=== PATIENT | male | born 1975 | race Caucasian/White ===

== ENCOUNTER → 2018-04-02 10:05 | Outpatient (CLI) | payer OTHER, SELFPAY ==
--- NOTE | 2018-04-02 10:05 | DT_ITS ---
This patient was seen during an EMR downtime March 30, 2018 - April 06, 2018. This patient may have a combination of paper and electronic documentation or all paper documentation. All documentation is viewable within the e-chart portion of [facility] for each patient visit.
[2018-04-05 04:12] LABS: Bacteria 0 SEEN /hpf (None Seen); Mucous, Urine 0 SEEN /hpf (<or=2+); White Blood Cells 0 SEEN /hpf (0-5)
[2018-04-07 03:06] LABS: AST(SGOT) 11 U/L (15-37); Alanine Aminotransfer ALT/SGPT 32 U/L (16-61); Albumin, Serum 3.5 g/dL (3.2-5.0); Alkaline Phosphatase 119 U/L (45-117); Anion Gap 5 (5-15); BUN 12 mg/dL (7-18); BUN/Creat Ratio 13.8 RATIO (10-20); Calcium,Total 8.5 mg/dL (8.5-10.1); Chloride 112 mmol/L (98-107); Creatinine, Serum 0.87 mg/dL (0.70-1.30); EST Glomerular Filtration Rate 102 mL/min (>60); Est Glom Filt Rate - Afr Amer 124 mL/min (>60); Globulin 3.5 g/dL (2.2-4.2); Glucose 98 mg/dL (74-106); Magnesium 2.2 mg/dL (1.6-2.6); Potassium 4.3 mmol/L (3.5-5.1); Sodium Level 145 mmol/L (136-145); T4 Free Direct 1.01 ng/dL (0.76-1.46); Thyroid Stim Hormone (TSH) 1.05 uIU/mL (0.358-3.74)
[2018-04-07 03:11] LABS: Color, Urine Yellow (Yellow); Glucose, Dipstick NEGATIVE (Normal); Ketone-Dipstick Negative (Negative); Specific Gravity, Urine 1.025 (1.002-1.030); Urine Bilirubin Dipstick Negative (Negative); Urine Clarity Clear (Clear)
[2018-04-07 03:12] LABS: Leukocyte Esterase-Dipstick Negative /ul (Negative); Nitrite-Dipstick Negative (Negative); Occult Blood-Urine 10 /ul (Negative); Protein-Dipstick Negative (Negative); Red Blood Cells-Urine 0-5 SEEN /hpf (0-5); Squamous Epithelial Cells - UA 0-5 SEEN /hpf (0-5); Urine Urobilinogen Normal (Normal)
[2018-04-07 03:26] LABS: Absolute Lymphocyte Count 3.44 X10^3/ul (0.83-4.51); Absolute Neutrophil Count 5.4 X10^3/uL (2.0-7.7); Basophil# 0.05 X10^3/uL; Basophil% 0.5 % (0-1); Eosinophil# 0.15 X10^3/uL; Eosinophils% 1.5 % (0-5); Hematocrit 47.3 % (40-54); Hemoglobin 15.5 g/dl (13.0-16.5); Lymphocyte # 3.44 X10^3/ul (4.0); Lymphocyte % 35.4 % (19-41); Mean Corp Hgb Conc 32.8 g/gl (32-36); Mean Corpuscular Hgb 31.4 pg (27.0-32.0); Mean Corpuscular Volume 95.7 fL (80-94); Mean Platelet Vol. 10.1 fl (6.2-12.0); Monocyte# 0.69 X10^3/uL; Monocyte% 7.1 % (0-10); Neutrophil # 5.36 X10^3/uL (2.7-7.7); Neutrophil % 55.3 % (47-70); POSITIVE COUNT NO; POSITIVE DIFFERENTIAL NO; POSITIVE MORPHOLOGY NO; Platelet Count 294 K/mm3 (150-450); RBC Distribution Width CV 13.9 % (11.6-14.6); RBC Distribution Width SD 48.9 fl (35.1-43.9); Red Blood Count 4.94 M/mm3 (4.6-6.2); White Blood Count 9.7 K/mm3 (4.4-11.0)
[2018-04-07 16:14] LABS: Vitamin B12 358 pg/mL (211-911); Vitamin D,25 Hydroxy 19.2 ng/mL (29.95-100.01)
== END ==
PROVIDERS: Family Provider Family Medicine; PCP Family Medicine; Visit Provider Family Medicine
DX: I10 Essential (primary) hypertension (principal); R53.83 Other fatigue; E01.0 Iodine-deficiency related diffuse (endemic) goiter
CPT/HCPCS: 36415; 80053; 81001; 82306; 82607; 83516; 83735; 84439; 84443; 85025; 86376

== ENCOUNTER → 2018-04-07 10:01 | Outpatient (CLI) | payer OTHER, SELFPAY ==
--- NOTE | 2018-04-07 10:06 | US_ITS ---
STUDY: THYROID ULTRASOUND REASON FOR EXAM: Male, 42 years old. Palpable thyromegaly TECHNIQUE: Ultrasound evaluation of the thyroid was performed with real-time and static frances-scale imaging. COMPARISON: None. FINDINGS: RIGHT LOBE: The right lobe of the thyroid gland measures 5.0 x 1.5 x 2.3 cm. There is a homogeneous echotexture. There are no demonstrated solid, cystic or complex lesions. LEFT LOBE: The left lobe of the thyroid gland measures 4.8 x 1.8 x 1.9 cm. There is a homogeneous echotexture. There is a solid 0.7 x 0.7 x 0.5 cm upper pole nodule. ISTHMUS: The isthmus measures 0.3 cm. The regional lymph nodes are normal. US/Thyroid IMPRESSION: Borderline enlarged homogeneous thyroid gland with a solid 7 mm nodule in the left lobe. Sonography cannot distinguish between benign and aggressive nodules. Recommend further evaluation with thyroid uptake study since no previous studies are available for comparison. If uptake is suspicious, biopsy would be recommended. At the minimum, a short-term, 6 month follow-up ultrasound is recommended to assess stability of the nodule Electronically Signed: Sanchez Palencia MD at 8:28 EDT , Service support ,
== END ==
PROVIDERS: Family Provider Family Medicine; PCP Family Medicine; Visit Provider Family Medicine
DX: E01.0 Iodine-deficiency related diffuse (endemic) goiter (principal)
CPT/HCPCS: 76536

== ENCOUNTER → 2022-05-03 | Outpatient (CLI) | payer OTHER, SELFPAY ==
--- NOTE | 2022-05-03 14:39 | CT_ITS ---
EXAM: CT CHEST WITH INTRAVENOUS CONTRAST CLINICAL INDICATION: LUNG NODULE TECHNIQUE: Helically acquired images were obtained of the chest with intravenous contrast. This CT exam was performed using one or more of the following dose reduction techniques: automated exposure control, adjustment of the mA and/or kV according to patient size, and/or use of iterative reconstruction technique. This report was created using [employer] report generation technology. CONTRAST: IV 100mL Isovue-300 COMPARISON: None. FINDINGS: LUNGS AND PLEURAL SPACES: There are small pleural-based nodules in the right middle lobe that abuts the minor fissure. No other nodules are identified. Fleischner Society Guidelines suggest no follow-up is necessary for patients with low or high risk of malignancy. No pneumothorax. HEART: Unremarkable. Heart size is normal. No pericardial effusion. No significant coronary artery calcifications. MEDIASTINUM: Unremarkable. No mediastinal or hilar adenopathy. Esophagus is unremarkable. No hiatal hernia. THYROID: Unremarkable. No thyroid lesions. BONES/JOINTS: Unremarkable. No suspicious lytic or blastic abnormality. VASCULATURE: Unremarkable. Thoracic aorta is non-dilated. No thoracic aortic dissection. No obvious central pulmonary embolism although this study was not performed with the pulmonary embolism protocol. CT/Chest WITH Contrast IMPRESSION: No acute findings in the chest. Electronically Signed: Vikram Kowalski MD at 17:58 EDT ,
[2022-05-03 15:10] LABS: CREATININE FINGERSTICK < 0.9 mg/dL (0.70-1.30); EGFR FINGERSTICK > 60.0000 mL/min (>60)
== END | disposition home or self-care (01) ==
LOC: CT 14:38
PROVIDERS: PCP Family Medicine; Referring Provider Family Medicine; Visit Provider Family Medicine
DX: R91.1 Solitary pulmonary nodule (principal)
CPT/HCPCS: 71260; Q9967

== ENCOUNTER → 2022-10-23 | Outpatient (CLI) | payer OTHER, SELFPAY ==
--- NOTE | 2022-10-23 16:00 | RAD_ITS ---
STUDY: X-RAY - LEFT TIBIA AND FIBULA REASON FOR EXAM: Male, 47 years old. CONTUSION TECHNIQUE: 4 view(s) of the tibia and fibula were obtained. COMPARISON: None. FINDINGS: Normal visualized tibia. Normal visualized fibula. The soft tissue structures are unremarkable. RAD/Tibia & Fibula 2 Views IMPRESSION: Normal x-ray examination of the tibia and fibula. Electronically Signed: Sanchez Palencia MD at 12:18 EST ,
== END | disposition home or self-care (01) ==
LOC: MTRAD 15:54
PROVIDERS: PCP Family Medicine; Referring Provider Family Medicine; Visit Provider Family Medicine
DX: S80.12XA Contusion of left lower leg, initial encounter (principal)
CPT/HCPCS: 73590

== ENCOUNTER → 2022-10-24 | Outpatient (CLI) | payer OTHER, SELFPAY ==
--- NOTE | 2022-10-24 08:45 | VDLE_ITS ---
Reason For Study: LEG EDEMA RIGHT LEFT CFV is compressible, spontaneous, phasic, GSV is normal. competent and demonstrates normal CFV is compressible, spontaneous, phasic, augmentation. competent, and demonstrates normal Procedure augmentation. This is a venous duplex using B-mode, color FV is compressible, spontaneous, phasic, flow and spectral Doppler. competent and demonstrates normal Exam performed in department. augmentation. The exam was diagnostic. POP V is compressible, spontaneous, phasic, A preliminary report was called and/or faxed competent and demonstrates normal to Dr. Coreas. augmentation. T/P Trunk is compressible. PTV is compressible. LT PerV is compressible. VL/Venous Duplex US, Unilateral Interpretation Summary Deep veins of the left lower extremity are patent and compressible segmentally. There is no evidence of left lower extremity deep vein thrombosis. The left great saphenous vein alissa ears patent and compressible segmentally. Ordering Physician: Crissy Coreas Referring Physician: Roger Burroughs Performed By: Serg Mckenna RVT
== END | disposition home or self-care (01) ==
LOC: CVS 08:44
PROVIDERS: PCP Family Medicine; Visit Provider Family Medicine
DX: R60.0 Localized edema (principal); S80.12XA Contusion of left lower leg, initial encounter
CPT/HCPCS: 93971

== ENCOUNTER → 2023-11-20 | Outpatient (CLI) | payer BC, SELFPAY ==
--- OUTSIDE RECORDS SUMMARY | 2023-11-20 10:21 | XMS RPT_ITS | CCD ---
Author Name Unknown Address [address] [place] [address] Organization [facility] Care Team Providers Care Water Tester Name Role Phone Unavailable Primary Care Provider UnavailHANK Kohli Attending Unavailable Roger Lomeli MD Primary Care Provider Roger Lomeli MD Primary Care Provider [phone] TYLER JACOBS Referring Unavailable ROGER LOMELI Primary Care Unavailable TYLER JACOBS Attending Unavailable ROGER LOMELI Primary Care Unavailable JENIFER LUI Referring Unavailable Roger Lomeli MD Primary Care Provider [phone] ROGER FAGAN Primary Care Unavailable MARY SIBLEY, ss - [phone] Attending Unava Roger Duke MD Primary Care Provider ROGER LOMELI Primary Care Unavailable TYLER JACOBS Attending Unavailable Allergies Allergy Classification Reported Allergen(s) Allergy Type Date of Onset Reaction(s) Facility (15 sources) Erythromycin Drug Allergy 7 Swelling, Anaphylaxis [place], [place] (2 sources) ERYTHROMYCIN BASE; Translations: [ERYTHROMYCIN BASE] Propensity to adverse reactions to drug (disorder) 7 [facility] Medications Current Medications Medication Drug Class(es) Dates Sig (Normalized) Sig (Original) Atenolol (1 source) beta-Adrenergic Romel ATENOLOL PO Take by mouth 0 Active doxycycline hyclate 100 mg oral tablet (1 source) Tetracycline-class Drug Start: 07-03-2020 End: 07-10-2020 take 1 tablet by mouth twice daily doxycycline hyclate (VIBRA-TABS) 100 MG tablet Take 1 tablet by mouth 2 times daily for 7 days 14 tablet 0 07/03/2020 07/10/2020 Active ezetimibe 10 mg oral tablet (11 sources) Dietary Cholesterol Absorption Inhibitor Start: 07-11-2022 End: 06-02-2024 take 1 tablet by mouth once daily ezetimibe (ZETIA) 10 mg tablet Take 1 tablet by mouth once daily. 90 tablet 3 06/03/2023 06/02/2024 Active Completed/Discontinued Medications Medication Drug Class(es) Dates Sig (Normalized) Sig (Original) amLODIPine 10 mg oral tablet (12 sources) Dihydropyridine Calcium Channel Romel Start: 07-10-2022 End: 06-03-2023 take 1 tablet by mouth once daily amLODIPine (NORVASC) 10 mg tablet Take 1 tablet by mouth once daily. 90 tablet 3 06/03/2023 Active Problems Problem Classification Problem Date Documented Da te Episodic/Chronic Acute myocardial infarction (1 source) Myocardial infarction; Translations: [Non-ST elevation (NSTEMI) myocardial infarction] Chronic Coronary atherosclerosis and other heart disease (17 sources) Coronary atherosclerosis; Translations: [Atherosclerotic heart disease of [place] coronary artery without angina pectoris] Onset: 04-03-2022 Chronic Disorders of lipid metabolism (15 sources) Mixed hyperlipidemia; Translations: [Mixed hyperlipidemia] Onset: 04-03-2022 Chronic Essential hypertension (19 sources) Essential hypertension; Translations: [Essential (primary) hypertension] Onset: 04-03-2022 Chronic Other upper respiratory infections (1 source) Upper respiratory infection; Translations: [Upper respiratory tract infection, unspecified type] Episodic Residual codes; unclassified (1 source) Tobacco user; Translations: [Tobacco use] Episodic Substance-related disorders (2 sources) Smoker; Translations: [Nicotine dependence, unspecified, uncomplicated] Chronic Thyroid disorders (11 sources) Endemic goiter; Translations: [Iodine-deficiency related diffuse (endemic) goiter] Onset: 04-07-2018 07-09-2022 Chronic Results Test Name Value Interpretation Reference Range Facil ity Vital Signs Date Time Vital Sign Value Performing Clinician Facility 06-03-2023 08:50-0400 Body height 185.4 cm Tyler Jacobs MD Work Phone: [facility] 06-03-2023 08:50-0400 Body weight 101.15 kg Tyler Jacobs MD Work Phone: [facility] 06-03-2023 08:50-0400 Diastolic blood pressure 85 mm[Hg] Tyler Jacobs MD Work Phone: [facility] 06-03-2023 08:50-0400 Heart rate 80 /min Tyler Jacobs MD Work Phone: [facility] 06-03-2023 08:50-0400 SaO2% (BldA) [Mass fraction] 98 % Tyler Jacobs MD Work Phone: [facility] 06-03-2023 08:50-0400 Systolic blood pressure 118 mm[Hg] Tyler Jacobs MD Work Phone: [facility] 07-10-2022 08:51-0400 Body height 185.4 cm Tyler Jacobs MD Work Phone: [facility] 07-10-2022 08:51-0400 Body weight 102.06 kg Tyler Jacobs MD Work Phone: [facility] 07-10-2022 08:51-0400 Diastolic blood pressure 95 mm[Hg] Tyler Jacobs MD Work Phone: [facility] 07-10-2022 08:51-0400 Heart rate 65 /min Tylre Jacobs MD Work Phone: [facility] 07-10-2022 08:51-0400 SaO2% (BldA) [Mass fraction] 98 % Tyler Jacobs MD Work Phone: [facility] 07-10-2022 08:51-0400 Systolic blood pressure 145 mm[Hg] Tyler Jacobs MD Work Phone: [facility] 04-03-2022 10:56-0400 Body height 185.4 cm Jenifer Lui APRN.SUPERVISOR ROLLING ROOM Work Phone: [facility] 04-03-2022 10:56-0400 Body weight 101.15 kg Jenifer Lui SIDEWALK INSPECTOR.SUPERVISOR ROLLING ROOM Work Phone: [facility] 04-03-2022 10:56-0400 Diastolic blood pressure 94 mm[Hg] Jenifer Lui SIDEWALK INSPECTOR.SUPERVISOR ROLLING ROOM Work Phone: [facility] 04-03-2022 10:56-0400 Heart rate 70 /min Jenifer Lui APRN.SUPERVISOR ROLLING ROOM Work Phone: [facility] 04-03-2022 10:56-0400 Respiratory rate 18 /min Jenifer Lui APRN.SUPERVISOR ROLLING ROOM Work Phone: [facility] 04-03-2022 10:56-0400 SaO2% (BldA) [Mass fraction] 99 % Jenifer Lui APRN.SUPERVISOR ROLLING ROOM Work Phone: [facility] 04-03-2022 10:56-0400 Systolic blood pressure 148 mm[Hg] Jenifer Lui SIDEWALK INSPECTOR.SUPERVISOR ROLLING ROOM Work Phone: [facility] 07-03-2020 14:17-0400 BMI (Body Mass Index) 29.03 kg/m2 [facility] [place] 07-03-2020 14:17-0400 Body weight 99.79 kg [facility], [place] 07-03-2020 14:17-0400 [facility] [place] 07-03-2020 14:14-0400 Body Temperature 96.91 [degF] [facility], [place] 07-03-2020 14:14-0400 BP Diastolic 94 mm[Hg] [facility], [place] 07-03-2020 14:14-0400 BP Systolic 172 mm[Hg] Hank [facility], [place] 07-03-2020 14:14-0400 Pulse (Heart Rate) 113 /min [facility], [place] 07-03-2020 14:14-0400 Pulse Oximetry 97 % [facility] [place] 07-03-2020 14:14-0400 Respiratory Rate 16 /min [facility], [place] Encounters Encounter Date Encounter Type Care Provider Facility Start: 07-03-2023 Quan Jacobs MD Work Phone: [facility] Procedures Date Procedure Procedure Detail Performing Clinician Start: 07-03-2020 Ecg routine ecg w/le ast 12 lds w/i&r HANK GREER Start: 07-03-2020 Radiologic exam ches t 2 views HANK GREER Start: 07-03-2020 Assay of lipase MISAELAMI Sandie GREER Start: 07-03-2020 Assay of troponin quantitative HANK GREER Start: 07-03-2020 Blood count complete auto&auto difrntl wbc HANK GREER Start: 07-03-2020 Comprehensive metabo lic panel HANK GREER Start: 07-03-2020 COVID-19 HANK MISTRY Start: 07-03-2020 Ecg routine ecg w/le ast 12 lds w/i&r Hank Greer Work Phone: Start: 07-03-2020 Radiologic exam ches t 2 views Hank Greer Work Phone: Start: 07-03-2020 Assay of lipase Bryan Greer Work Phone: Start: 07-03-2020 Assay of troponin quantitative Hank Moreiraamauri Work Phone: Start: 07-03-2020 Blood count complete auto&auto difrntl wbc Hank Greer Work Phone: Start: 07-03-2020 Comprehensive metabo lic panel Hank Greer Work Phone: History of placement of stent for coronary artery disease History of coronary artery stent placement Tyler Jacobs MD Work Phone: Plan of Treatment Date Care Activity Detail Author Start: 07-10-2027 LIPID SCREEN LIPID SCREEN [facility] Start: 03-02-2027 LIPID SCREEN LIPID SCREEN [facility] Start: 07-10-2025 DIABETES SCREEN DIABETES SCREEN [facility] Start: 03-05-2025 DIABETES SCREEN DIABETES SCREEN [facility] Start: 07-10-2023 Hepatitis B surface antibody level LDL CHOLESTEROL [facility] Start: 06-27-2023 Influenza vaccination C [facility] Start: 03-02-2023 Hepatitis B surface antibody level LDL CHOLESTEROL [facility] Start: 10-27-2022 DEPRESSION ASSESSMENT DEPRESSION ASS ESSMENT [facility] Start: 07-10-2022 End: 09-09-2022 Basic metabolic 2000 panel - Serum or Plasma BASIC METABOLIC PNL Lab Routine Coronary artery disease involving [place] coronary artery of [place] heart without angina pectoris Expected: 07/10/2022, Expires: 09/09/2022 [facility] Work Phone: Immunizations Immunization Date Immunization Notes Care Provider Justin wilson 11-20-2015 influenza, live, intranasal, quadrivalent Tyler Jacobs MD Work Phone: [facility] Payers Date Payer Category Payer Unknown MMO [employer] [id number] 2019-Present [phone] [address] [place] [address] PPO [id number] 2015 Unknown [id number] 2008 Unknown [id number] 1974 Unknown [id number] 1974 Unknown [id number] Social History Date Type Detail Facility Start: 07-03-2020 End: 07-10-2022 Tobacco smoking status ORIS Current every day smoker [facility] History of tobacco use Cigarette Smoker M [place], [place] Start: 07-03-2020 End: 06-03-2023 Cigarettes smoked current (pack per day) - Reported [place], [place] Start: 07-03-2020 End: 07-10-2022 Tobacco use and exposure Never used [place], [place] Start: 07-03-2020 Alcohol intake Current drinke r of alcohol (finding) [place], [place] Start: 07-03-2020 Alcohol Comment socially Stacy Meyers [place], [place] Start: 1975 Sex Assigned At Not on file [place], [place] Start: 02-19-2022 End: 07-10-2022 Exposure to SARS-CoV-2 (event) Not sure [facility]- [place], [place] Start: 03-01-2022 End: 06-03-2023 Alcohol intake Current non-drinker of alcohol (finding) [facility] Start: 1975 Sex Assigned At Male C [facility] Start: 06-03-2023 Tobacco use panel [facility] National Score (1-10 0), lower number is lower risk 62 [facility] Start: 03-27-2022 Gender identity Identifies as male gender (finding) [facility] Start: 03-27-2022 Sexual orientation Heterosexual (fin ding) [facility] Clinical Notes 03-01-2022 to 07-03-2023 Telephone Encounter - Dominique Foreman LPN - 07/03/2023 10:04 AM Tyler Sierra MD - 06/03/2023 10:50 AM Zully Alva MA - 06/03/2023 8:51 AM EDTTyler Jacobs MD - 07/10/2022 9:42 AM EDT Note Date & Type Note Facility 07-03-2023 Miscellaneous Notes Patient's request for medication is as follows: Requested Prescriptions Pending Prescriptions Disp Refills nebivolol (BYSTOLIC) 10 mg tablet [Pharmacy Med Name: NEBIVOLOL 10 MG TABLET] 90 tablet 3 Sig: TAKE 1 TABLET BY MOUTH EVERY DAY Last seen 06/03/2023. Recall scheduled for 12/04/2023. Prescription(s) as above. Please process accordingly. Dominique Foreman LPN documented in this encounter [facility] 06-03-2023 Note HNO ID: [id number] Author: Tyler Jacobs MD Service: ? Author Type: Physician Type: Progress Notes Filed: 06/03/2023 11:07 AM Note Text: Chief Complaint: Patient presents with: Cardiology Follow Up : HTN History of Present Illness: Juancarlos Carey is a 47 year old male who presents for a follow up on coronary artery disease. Patient has a history of essential hypertension dyslipidemia tobacco abuse. He was admitted to the hospital in February 2022 with non-STEMI. Troponin peaked at 1152. He underwent PCI of circumflex artery. He was started on dual antiplatelet therapy beta-blockers LISA inhibitor's and statins. He had an initial post hospital discharge follow-up visit with the nurse practitioner at [facility] but as he lives closer to the [facility] he wanted to transfer his care over here. Patient is accompanied by his today. 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 He denies any chest pain shortness of breath when he is doing his steps. Due to his busy work schedule he was not able to do cardiac rehab but he has been doing strenuous activities at work without any limitations. He denies any palpitations lightheadedness syncope orthopnea PND or leg edema. 06/03/2023:Patient denies any chest pain shortness of breath palpitations lightheadedness syncope orthopnea PND or leg edema. Complains of erectile dysfunction for the last 1 year. PAST MEDICAL HISTORY Diagnosis Date Hypertension Irregular heart beat Other hyperlipidemia TIA (transient ischemic attack) PAST SURGICAL HISTORY Procedure Laterality Date TONSILLECTOMY HX FAMILY HISTORY Problem Relation Age of Onset Stroke Mother Coronary Artery Disease Father Social History Tobacco Use Smoking status: Every Day Packs/day: 1.00 Years: 17.00 Total pack years: 17.00 Types: Cigarettes Smokeless tobacco: Never Vaping Use Vaping Use: Some days Substance Use Topics Alcohol use: No Drug use: No Current Outpatient Medications Medication Sig ticagrelor (BRILINTA) 90 mg tablet Take 1 tablet by mouth twice daily. aspirin 81 mg chewable tablet Take 1 tablet by mouth once daily. lisinopril (ZESTRIL) 40 mg tablet Take 1 tablet by mouth once daily. atorvastatin (LIPITOR) 80 mg tablet Take 1 tablet by mouth daily at bedtime. amLODIPine (NORVASC) 10 mg tablet Take 1 tablet by mouth once daily. ezetimibe (ZETIA) 10 mg tablet Take 1 tablet by mouth once daily. nebivolol (BYSTOLIC) 10 mg tablet Take 1 tablet by mouth once daily. varenicline (CHANTIX STARTING MONTH BOX) 0.5 mg (11)- 1 mg (42) tablet Take 0.5 mg by mouth once daily on Days 1 through 3, THEN 0.5 mg twice daily on Days 4 through 7, THEN 1 mg twice daily on Day 8 and thereafter (Patient not taking: Reported on 07/10/2022) nitroglycerin sublingual (NITROQUICK) 0.4 mg SL tablet Dissolve 1 tablet under the tongue every 5 minutes as needed for chest pain. (Patient not taking: Reported on 07/10/2022) No current facility-administered medications for this visit. ALLERGIES Allergen Reactions Erythrocin [Erythro* Anaphylaxis Review of Systems: General: No weight loss, malaise, fevers, chills, or night sweats HEENT: Negative for epistaxis Neck: Negative for pain and significant neck swelling Respiratory: Negative for cough, shortness of breath at rest or on exertion, wheezing Cardiac: Negative history of chest pain on exertion, dyspnea on exertion, orthopnea, paroxysmal nocturnal dyspnea, lower extremity edema, presyncope, syncope, or palpitations Gastrointestinal: Negative history of abdominal pain, nausea, vomiting, constipation, diarrhea, melena, or hematochezia Urinary: Negative history of dysuria, hematuria, or frequency Peripheral vascular: No claudication Musculoskeletal: Negative for joint aches/pain, neck pain, or back pain Neurologic: Negative history of dizziness/lightheadedness, vertigo, numbness/tingling of hands or feet Hematologic: Negative for easy bruising or easy bleeding. Endocrine: Negative history of obesity Skin: Negative history of rash and itching Other: The rest of the review of systems is unremarkable and negative or non-contributory I have confirmed and edited as necessary, the PFSH and ROS obtained by others. Physical Examination: BP 118/85 Pulse 80 Ht 6' 1 (1.85m) Wt 223 lb (101.2kg) SpO2 98% BMI 29.43 kg/(m2). General: Appears well in no acute distress Skin: No clubbing no cyanosis HEENT PERRLA Mucosa: Moist Neck: No JVD no carotid bruit no palpable thyromegaly Heart S1-S2 rate regular rhythm no murmur no rubs or gallops Lungs: Breath sounds equal clear to auscultation bilaterally Extremities no pedal edema Neuro: Oriented to time place and person grossly intact. Psych: Normal mood and affect Cardiac Testing and Procedures: Electrocardiogram: 07/10/2022: Normal sinus rhythm at 68 bpm. Normal EKG 03/01/2022: Normal sinu (more content not included)... [facility] 08-08-2023 History of Presen t illness Narrative Chief Complaint: Patient presents with: Cardiology Follow Up : HTN History of Present Illness: Juancarlos Carey is a 47 year old male who presents for a follow up on coronary artery disease. Patient has a history of essential hypertension dyslipidemia tobacco abuse. He was admitted to the hospital in February 2022 with non-STEMI. Troponin peaked at 1152. He underwent PCI of circumflex artery. He was started on dual antiplatelet therapy beta-blockers LISA inhibitor's and statins. He had an initial post hospital discharge follow-up visit with the nurse practitioner at [facility] but as he lives closer to the [facility] he wanted to transfer his care over here. Patient is accompanied by his today. 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 He denies any chest pain shortness of breath when he is doing his steps. Due to his busy work schedule he was not able to do cardiac rehab but he has been doing strenuous activities at work without any limitations. He denies any palpitations lightheadedness syncope orthopnea PND or leg edema. 06/03/2023:Patient denies any chest pain shortness of breath palpitations lightheadedness syncope orthopnea PND or leg edema. Complains of erectile dysfunction for the last 1 year. PAST MEDICAL HISTORY Diagnosis Date Hypertension Irregular heart beat Other hyperlipidemia TIA (transient ischemic attack) PAST SURGICAL HISTORY Procedure Laterality Date TONSILLECTOMY HX FAMILY HISTORY Problem Relation Age of Onset Stroke Mother Coronary Artery Disease Father Social History Tobacco Use Smoking status: Every Day Packs/day: 1.00 Years: 17.00 Total pack years: 17.00 Types: Cigarettes Smokeless tobacco: Never Vaping Use Vaping Use: Some days Substance Use Topics Alcohol use: No Drug use: No Current Outpatient Medications Medication Sig ticagrelor (BRILINTA) 90 mg tablet Take 1 tablet by mouth twice daily. aspirin 81 mg chewable tablet Take 1 tablet by mouth once daily. lisinopril (ZESTRIL) 40 mg tablet Take 1 tablet by mouth once daily. atorvastatin (LIPITOR) 80 mg tablet Take 1 tablet by mouth daily at bedtime. amLODIPine (NORVASC) 10 mg tablet Take 1 tablet by mouth once daily. ezetimibe (ZETIA) 10 mg tablet Take 1 tablet by mouth once daily. nebivolol (BYSTOLIC) 10 mg tablet Take 1 tablet by mouth once daily. varenicline (CHANTIX STARTING MONTH BOX) 0.5 mg (11)- 1 mg (42) tablet Take 0.5 mg by mouth once daily on Days 1 through 3, THEN 0.5 mg twice daily on Days 4 through 7, THEN 1 mg twice daily on Day 8 and thereafter (Patient not taking: Reported on 07/10/2022) nitroglycerin sublingual (NITROQUICK) 0.4 mg SL tablet Dissolve 1 tablet under the tongue every 5 minutes as needed for chest pain. (Patient not taking: Reported on 07/10/2022) No current facility-administered medications for this visit. ALLERGIES Allergen Reactions Erythrocin [Erythro* Anaphylaxis Review of Systems: General: No weight loss, malaise, fevers, chills, or night sweats HEENT: Negative for epistaxis Neck: Negative for pain and significant neck swelling Respiratory: Negative for cough, shortness of breath at rest or on exertion, wheezing Cardiac: Negative history of chest pain on exertion, dyspnea on exertion, orthopnea, paroxysmal nocturnal dyspnea, lower extremity edema, presyncope, syncope, or palpitations Gastrointestinal: Negative history of abdominal pain, nausea, vomiting, constipation, diarrhea, melena, or hematochezia Urinary: Negative history of dysuria, hematuria, or frequency Peripheral vascular: No claudication Musculoskeletal: Negative for joint aches/pain, neck pain, or back pain Neurologic: Negative history of dizziness/lightheadedness, vertigo, numbness/tingling of hands or feet Hematologic: Negative for easy bruising or easy bleeding. Endocrine: Negative history of obesity Skin: Negative history of rash and itching Other: The rest of the review of systems is unremarkable and negative or non-contributory I have confirmed and edited as necessary, the PFSH and ROS obtained by others. Physical Examination: BP 118/85 Pulse 80 Ht 6' 1 (1.85m) Wt 223 lb (101.2kg) SpO2 98% BMI 29.43 kg/(m^2). General: Appears well in no acute distress Skin: No clubbing no cyanosis HEENT PERRLA Mucosa: Moist Neck: No JVD no carotid bruit no palpable thyromegaly Heart S1-S2 rate regular rhythm no murmur no rubs or gallops Lungs: Breath sounds equal clear to auscultation bilaterally Extremities no pedal edema Neuro: Oriented to time place and person grossly intact. Psych: Normal mood and affect Cardiac Testing and Procedures: Electrocardiogram: 07/10/2022: Normal sinus rhythm at 68 bpm. Normal EKG 03/01/2022: Normal sinus rhythm at 82 bpm. T wave abnormality consider lateral ischemia. Echocardiogram: 03/02/2022: EF 52%. LVEF low normal. No definite focal wall motion abnormalities. No significant valvular abnormalities. Cardiac Catheterization/Percutaneous Coronary Intervention (PCI): 03/04/2022: LAD mild diffuse disease. Proximal and mid circumflex mild diffuse disease. Distal circumflex narrowed 80% focal disease. Proximal RCA 50% focal disease. Mid and distal RCA mild diffuse disease I have personally reviewed the Electrocardiogram. ASSESSMENT/PLAN: 1. Coronary artery disease involving [place] coronary artery of [place] heart without angina pectoris - ICD9: 414.01, ICD10: I25.10 Patient has been taking Brilinta for more than a year now and this can be discontinued. He is to continue aspirin beta-blockers, calcium channel blockers and high intensity statins. Annual lipid panel to be monitored by his PCP. Patient is complaining of erectile dysfunction for more than a year now. Coreg could potentially be the culprit. I have switched him to Bystolic and see if he feels any better. If no difference then he can get back on the Coreg and then he can talk to his primary care physician regarding initiation of PDE 5 inhibitors like Viagra or Cialis. No contraindication from a cardiac standpoint to using them. 2. Smoker SMOKING CESSATION COUNSELING Smoking cessation methods including Nicotine Replacement Therapies were discussed with the patient and assistance offered. The medical conditions adversely affected by cigarette use include:COPD. The patient is currently ready to quit. I personally spent 5 minutes in counseling. I have also put in a referral to the smoking cessation clinic. Patient said he tried Chantix and patch and needle therapy in the past which have not worked. He said he is cut down his smoking from 2 packs to 1 pack a day. The time spent in smoking cessation counseling is exclusive of any other counseling during this visit. 3. Lifestyle modification I've encouraged the patient to eat a heart healthy diet including laying off on processed meat, red meat and eating lean meat, fish, vegetables, fruits, legumes, nuts, fruits and using extra [place] olive oil in his diet. I've also encouraged to do daily exercises to try and lose weight. 4. Essential hypertension Adequately controlled on the current regimen. He is to continue lisinopril and Norvasc. I have switched him from Coreg to Bystolic 10 mg daily. He is to keep a log of his blood pressures and if suboptimally controlled can increase Bystolic dose to 20 mg daily. Tyler Jacobs MD documented in this encounter [facility] 06-03-2023 Nurse Note Patient has no cardiac complaints today. Zully Bauer CMA documented in this encounter [facility] 01-28-2023 Miscellaneous Notes Lvm for pt to call back to schedule his overdue 6 month f/u. Thanks Vianca documented in this encounter [facility] 01-27-2023 Miscellaneous Notes Last seen 07/10/2022. Patient instructed to follow up in 6 months. Please call patient with over due appointment. Dominique Foreman LPN documented in this encounter [facility] 01-27-2023 Miscellaneous Notes Patient's request for medication is as follows: Requested Prescriptions Pending Prescriptions Disp Refills ezetimibe (ZETIA) 10 mg tablet [Pharmacy Med Name: EZETIMIBE 10 MG TABLET] 90 tablet 1 Sig: TAKE 1 TABLET BY MOUTH EVERY DAY Last seen 07/10/2022. Patient instructed to follow up in 6 months. Message sent to clerical requesting they call patient with over due appointment. Prescription(s) as above. Please process accordingly. Dominique Foreman LPN documented in this encounter [facility] 10-18-2022 Note ED Nursing Discharge Summary Entered On: 10/18/2022 8:27 EST Performed On: 10/18/2022 8:21 EST by Estrella Patel RN [place] Information [id number] ED IV's : No IV ED IV Site Assessment : No IV ED Vitals Completed : Yes ED Final Assessment Completed : N/A ED Progress Note Completed : Yes Complete all PRN/Pain response forms? : N/A ED Disassociate Patient from Monitor : N/A Updated Depart Time : Yes ED Belongings sent w patient [id number] : Not applicable Estrella Patel RN - 10/18/2022 8:26 EST Education Instructions given to : Patient TeachBack Methodology : TeachBack, Explanation, Printed Material Barriers to Learning : None evident Estrella Patel RN - 10/18/2022 8:26 EST Post-Hospital Education Adult Grid Plan of Care : Verbalizes understanding Estrella Patel RN - 10/18/2022 8:26 EST ED Assistance Summary Assistance Given? : No Estrella Patel RN - 10/18/2022 8:26 EST [facility] 10-18-2022 Note Patient presents to the ED via triage for evaluation of left khan hematoma s/p fall. Patient states he slid on ice. Hx of ND this summer 2021. States takes Brilinta and Aspirin and concerned for a blood clot. States throbbing pain to site. Patient able to walk on leg with steady gait. +2 pedal pulse to left leg. Good cap refill. Patient had his last tetanus this Summer. Denies LOC or head injury. Small abrasion to left khan hematoma. Cleaned with normal saline and applied gauze and lisa wrap. Ice applied to site. Alert and oriented x3. All questions answered. No other needs at this time. Patient given discharge instructions and verbalizes understanding. Patient aware of follow up care and when to return to the ED. Patient aware of RICE. Medicated per orders. All questions answered. To lobby with steady gait with all belongings. [facility] 09-30-2022 Miscellaneous Notes Patient's request for medication is as follows: Requested Prescriptions Refused Prescriptions Disp Refills varenicline (CHANTIX) 0.5 mg (11)- 1 mg (42) tablet [Pharmacy Med Name: VARENICLINE STARTING MONTH BOX] 53 tablet 0 Sig: TAKE 0.5 MG BY MOUTH ONCE DAILY ON DAYS 1-3, THEN 0.5 MG TWICE DAILY ON DAYS 4-7, THEN 1 MG TWICE DAILY Pt needs an appt through pcp for this medication. Prescription(s) as above. Please process accordingly. Nandini Campuzano LPN documented in this encounter [facility] 07-11-2022 Miscellaneous Notes Most recent lab results faxed to [facility] at pt request. Notified pt via Grivy. documented in this encounter [facility] 07-10-2022 Note HNO ID: [id number] Author: Tyler Jacobs MD Service: ? Author Type: Physician Type: Progress Notes Filed: 07/10/2022 9:54 AM Note Text: Chief Complaint: Patient presents with: CARD New Patient Consult History of Present Illness: Juancarlos Carey is a 47 year old male who presents for a follow up on coronary artery disease. Patient has a history of essential hypertension dyslipidemia tobacco abuse. He was admitted to the hospital in February 2022 with non-STEMI. Troponin peaked at 1152. He underwent PCI of circumflex artery. He was started on dual antiplatelet therapy beta-blockers LISA inhibitor's and statins. He had an initial post hospital discharge follow-up visit with the nurse practitioner at [facility] but as he lives closer to the [facility] he wanted to transfer his care over here. Patient is accompanied by his today. 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 He denies any chest pain shortness of breath when he is doing his steps. Due to his busy work schedule he was not able to do cardiac rehab but he has been doing strenuous activities at work without any limitations. He denies any palpitations lightheadedness syncope orthopnea PND or leg edema. PAST MEDICAL HISTORY Diagnosis Date Hypertension Irregular heart beat Other hyperlipidemia TIA (transient ischemic attack) PAST SURGICAL HISTORY Procedure Laterality Date TONSILLECTOMY HX FAMILY HISTORY Problem Relation Age of Onset Stroke Mother Coronary Artery Disease Father Social History Tobacco Use Smoking status: Every Day Packs/day: 1.00 Years: 17.00 Pack years: 17.00 Types: Cigarettes Smokeless tobacco: Never Substance Use Topics Alcohol use: No Drug use: No Current Outpatient Medications Medication Sig atorvastatin (LIPITOR) 80 mg tablet Take 1 tablet by mouth daily at bedtime. carvedilol (COREG) 25 mg tablet Take 1 tablet by mouth twice daily. lisinopril (ZESTRIL, PRINIVIL) 40 mg tablet Take 1 tablet by mouth once daily. ticagrelor (BRILINTA) 90 mg tablet Take 1 tablet by mouth twice daily. aspirin 81 mg chewable tablet Take 1 tablet by mouth once daily. amLODIPine (NORVASC) 10 mg tablet Take 1 tablet by mouth once daily. varenicline (CHANTIX STARTING MONTH BOX) 0.5 mg (11)- 1 mg (42) tablet Take 0.5 mg by mouth once daily on Days 1 through 3, THEN 0.5 mg twice daily on Days 4 through 7, THEN 1 mg twice daily on Day 8 and thereafter (Patient not taking: Reported on 07/10/2022) nitroglycerin sublingual (NITROQUICK) 0.4 mg SL tablet Dissolve 1 tablet under the tongue every 5 minutes as needed for chest pain. (Patient not taking: Reported on 07/10/2022) No current facility-administered medications for this visit. ALLERGIES Allergen Reactions Erythrocin [Erythro* Anaphylaxis Review of Systems: General: No weight loss, malaise, fevers, chills, or night sweats HEENT: Negative for epistaxis Neck: Negative for pain and significant neck swelling Respiratory: Negative for cough, shortness of breath at rest or on exertion, wheezing Cardiac: Negative history of chest pain on exertion, dyspnea on exertion, orthopnea, paroxysmal nocturnal dyspnea, lower extremity edema, presyncope, syncope, or palpitations Gastrointestinal: Negative history of abdominal pain, nausea, vomiting, constipation, diarrhea, melena, or hematochezia Urinary: Negative history of dysuria, hematuria, or frequency Peripheral vascular: No claudication Musculoskeletal: Negative for joint aches/pain, neck pain, or back pain Neurologic: Negative history of dizziness/lightheadedness, vertigo, numbness/tingling of hands or feet Hematologic: Negative for easy bruising or easy bleeding. Endocrine: Negative history of obesity Skin: Negative history of rash and itching Other: The rest of the review of systems is unremarkable and negative or non-contributory Physical Examination: BP 145/95 Pulse 65 Ht 6' 1 (1.85m) Wt 225 lb (102.1kg) SpO2 98% BMI 29.69 kg/(m2). General appearance: Normal, alert, appears to be in no acute distress, cooperative Head: Normocephalic, atraumatic HEENT: Extraocular movements intact; mucous membranes moist; no JVD Lungs: CTAB; no rales, rhonchi, or wheezes Heart: RRR; normal S1/S2; no murmurs/gallops/rubs Abdomen: Abdomen soft, non-distended, non-tender. NABS Extremities: No cyanosis, clubbing or edema Skin: No rashes noted Neurologic: Nonfocal Psych: Normal mood/affect Cardiac Testing and Procedures: Electrocardiogram: 07/10/2022: Normal sinus rhythm at 68 bpm. Normal EKG 03/01/2022: Normal sinus rhythm at 82 bpm. T wave abnormality consider lateral ischemia. Echocardiogram: 03/02/2022: EF 52%. LVEF low normal. No definite focal wall motion abnormalities. No significant valvular abnormalities. Cardiac Catheterization/Percutaneous Coronary Intervention (PCI): 03/04/2022: LAD mild diffuse disease. P (more content not included)... [facility] 07-10-2022 History of Presen t illness Narrative Chief Complaint: Patient presents with: CARD New Patient Consult History of Present Illness: Juancarlos Carey is a 47 year old male who presents for a follow up on coronary artery disease. Patient has a history of essential hypertension dyslipidemia tobacco abuse. He was admitted to the hospital in February 2022 with non-STEMI. Troponin peaked at 1152. He underwent PCI of circumflex artery. He was started on dual antiplatelet therapy beta-blockers LISA inhibitor's and statins. He had an initial post hospital discharge follow-up visit with the nurse practitioner at [facility] but as he lives closer to the [facility] he wanted to transfer his care over here. Patient is accompanied by his today. 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 He denies any chest pain shortness of breath when he is doing his steps. Due to his busy work schedule he was not able to do cardiac rehab but he has been doing strenuous activities at work without any limitations. He denies any palpitations lightheadedness syncope orthopnea PND or leg edema. PAST MEDICAL HISTORY Diagnosis Date Hypertension Irregular heart beat Other hyperlipidemia TIA (transient ischemic attack) PAST SURGICAL HISTORY Procedure Laterality Date TONSILLECTOMY HX FAMILY HISTORY Problem Relation Age of Onset Stroke Mother Coronary Artery Disease Father Social History Tobacco Use Smoking status: Every Day Packs/day: 1.00 Years: 17.00 Pack years: 17.00 Types: Cigarettes Smokeless tobacco: Never Substance Use Topics Alcohol use: No Drug use: No Current Outpatient Medications Medication Sig atorvastatin (LIPITOR) 80 mg tablet Take 1 tablet by mouth daily at bedtime. carvedilol (COREG) 25 mg tablet Take 1 tablet by mouth twice daily. lisinopril (ZESTRIL, PRINIVIL) 40 mg tablet Take 1 tablet by mouth once daily. ticagrelor (BRILINTA) 90 mg tablet Take 1 tablet by mouth twice daily. aspirin 81 mg chewable tablet Take 1 tablet by mouth once daily. amLODIPine (NORVASC) 10 mg tablet Take 1 tablet by mouth once daily. varenicline (CHANTIX STARTING MONTH BOX) 0.5 mg (11)- 1 mg (42) tablet Take 0.5 mg by mouth once daily on Days 1 through 3, THEN 0.5 mg twice daily on Days 4 through 7, THEN 1 mg twice daily on Day 8 and thereafter (Patient not taking: Reported on 07/10/2022) nitroglycerin sublingual (NITROQUICK) 0.4 mg SL tablet Dissolve 1 tablet under the tongue every 5 minutes as needed for chest pain. (Patient not taking: Reported on 07/10/2022) No current facility-administered medications for this visit. ALLERGIES Allergen Reactions Erythrocin [Erythro* Anaphylaxis Review of Systems: General: No weight loss, malaise, fevers, chills, or night sweats HEENT: Negative for epistaxis Neck: Negative for pain and significant neck swelling Respiratory: Negative for cough, shortness of breath at rest or on exertion, wheezing Cardiac: Negative history of chest pain on exertion, dyspnea on exertion, orthopnea, paroxysmal nocturnal dyspnea, lower extremity edema, presyncope, syncope, or palpitations Gastrointestinal: Negative history of abdominal pain, nausea, vomiting, constipation, diarrhea, melena, or hematochezia Urinary: Negative history of dysuria, hematuria, or frequency Peripheral vascular: No claudication Musculoskeletal: Negative for joint aches/pain, neck pain, or back pain Neurologic: Negative history of dizziness/lightheadedness, vertigo, numbness/tingling of hands or feet Hematologic: Negative for easy bruising or easy bleeding. Endocrine: Negative history of obesity Skin: Negative history of rash and itching Other: The rest of the review of systems is unremarkable and negative or non-contributory Physical Examination: BP 145/95 Pulse 65 Ht 6' 1 (1.85m) Wt 225 lb (102.1kg) SpO2 98% BMI 29.69 kg/(m^2). General appearance: Normal, alert, appears to be in no acute distress, cooperative Head: Normocephalic, atraumatic HEENT: Extraocular movements intact; mucous membranes moist; no JVD Lungs: CTAB; no rales, rhonchi, or wheezes Heart: RRR; normal S1/S2; no murmurs/gallops/rubs Abdomen: Abdomen soft, non-distended, non-tender. NABS Extremities: No cyanosis, clubbing or edema Skin: No rashes noted Neurologic: Nonfocal Psych: Normal mood/affect Cardiac Testing and Procedures: Electrocardiogram: 07/10/2022: Normal sinus rhythm at 68 bpm. Normal EKG 03/01/2022: Normal sinus rhythm at 82 bpm. T wave abnormality consider lateral ischemia. Echocardiogram: 03/02/2022: EF 52%. LVEF low normal. No definite focal wall motion abnormalities. No significant valvular abnormalities. Cardiac Catheterization/Percutaneous Coronary Intervention (PCI): 03/04/2022: LAD mild diffuse disease. Proximal and mid circumflex mild diffuse disease. Distal circumflex narrowed 80% focal disease. Proximal RCA 50% focal disease. Mid and distal RCA mild diffuse disease I have personally reviewed the Electrocardiogram. ASSESSMENT/PLAN: 1. Coronary artery disease involving [place] coronary artery of [place] heart without angina pectoris - ICD9: 414.01, ICD10: I25.10 Patient is to continue dual antiplatelet agents uninterrupted for at least a year after which aspirin is to be continued lifelong. Patient used to have a lot of spontaneous bruising over his body but that has improved significantly. Currently only has a small bruise in the left lateral torso. I have told him that is likely due to minor trauma that he may have encountered during his physical job. In addition to the antiplatelet agents he is also to continue beta-blockers high intensity statins. I have stopped Imdur and start him on Norvasc for better blood pressure control. Norvasc will also help as a second antianginal agent. I have ordered a BMP, CK hepatic function panel and lipid panel as he has not had any blood test since hospital discharge. 2. Smoker SMOKING CESSATION COUNSELING Smoking cessation methods including Nicotine Replacement Therapies were discussed with the patient and assistance offered. The medical conditions adversely affected by cigarette use include:COPD. The patient is currently ready to quit. I personally spent 5 minutes in counseling. I have also put in a referral to the smoking cessation clinic. Patient said he tried Chantix and patch and needle therapy in the past which have not worked. He said he is cut down his smoking from 2 packs to 1 pack a day. The time spent in smoking cessation counseling is exclusive of any other counseling during this visit. 3. Lifestyle modification I've encouraged the patient to eat a heart healthy diet including laying off on processed meat, red meat and eating lean meat, fish, vegetables, fruits, legumes, nuts, fruits and using extra [place] olive oil in his diet. I've also encouraged to do daily exercises to try and lose weight. 4. Essential hypertension Suboptimally controlled. In addition to Coreg and lisinopril I have added Norvasc in place of Imdur for better blood pressure control. I have asked him to keep a log of his blood pressure readings at home. I have demonstrated to him the right way to checking the blood pressure on an empty bladder with no tea or coffee for half an hour prior to checking the blood pressure with the feet on the floor and the arm at the level of the heart. Tyler Jaocbs MD documented in this encounter [facility] 07-10-2022 Instructions Tyler Jacobs MD - 07/10/2022 9:35 AM EDT Stop Imdur and start Norvasc 10mg daily documented in this encounter [facility] 04-03-2022 Miscellaneous Notes Patient calling after his Hospital Follow up with Jenifer Lui APRN.CNP. Patient stated that he was told by JOSSELINE to call our office and schedule a 3 month follow up at our location. That he could get his labs done here and to get his BP checked in a couple of weeks. Patient said JOSSELINE told him that will be his primary care for his heart. There is no referral in and he told me he has never seen Dr. Jacobs. I scheduled him for a new patient appointment for his 3 month follow up Please call and advise patient on what he should do about his BP check/follow up. Also please take a look at his chart and let us know if this appointment is correct or if anything needs changed. I did inform the patient that we do not have a lab at our location and I will send him some [facility] walk in labs he can go to. Thank you!!! documented in this encounter [facility] 04-03-2022 History of Presen t illness Narrative Chief Complaint: Patient presents with: [facility] Follow Up: HLD History of Present Illness: Juancarlos Carey is a 46 year old male with history of hypertension hyperlipidemia tobacco abuse, TIA, h/o Substance use Presented to [facility] with complaints of intermittent chest pressure diaphoresis and fatigue. 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 Blood pressure was elevated at 170/110 EKG identified T wave inversions in V4 through V6 with changes in lead III and aVF he was started on IV heparin given sublingual nitrate with no improvement therefore started on nitro drip. Initial high-sensitivity troponin was 17 did end up peaking at 1152. He was seen in consultation by Dr. Atwood and admitted to the ICU. Echocardiogram identified EF to be 52% mildly dilated aorta at 3.9 cm. Cardiac catheterization identified normal left main mild diffuse disease in the LAD 80% disease in the distal circumflex RCA proximal 50% mid 40%. He underwent PCI drug-eluting stent to the circumflex there were no postprocedure complications. He was started on aspirin Brilinta and statin therapy with beta-romel and LISA inhibitor. He presents today in follow-up. He denies any complaints of chest pain, palpitations tach palpitations syncope or near syncope he has no orthopnea PND or lower extremity edema. He is very faithful with his medications and very compliant. Not likely to participate in cardiac rehab as he is a very active gentleman doing over 10,000-11,000 steps per day and his outdoor work. He has made dietary changes as well unfortunately he does eat a lot of eggs omelettes and pasta. He will be making additional changes to his dietary habits. PAST MEDICAL HISTORY Diagnosis Date Hypertension Irregular heart beat Other hyperlipidemia TIA (transient ischemic attack) PAST SURGICAL HISTORY Procedure Laterality Date TONSILLECTOMY HX FAMILY HISTORY Problem Relation Age of Onset Stroke Mother Coronary Artery Disease Father Social History Tobacco Use Smoking status: Current Every Day Smoker Packs/day: 1.00 Years: 17.00 Pack years: 17.00 Types: Cigarettes Smokeless tobacco: Never Used Substance Use Topics Alcohol use: No Drug use: No Current Outpatient Medications Medication Sig atorvastatin (LIPITOR) 80 mg tablet Take 1 tablet by mouth daily at bedtime. isosorbide mononitrate ER (IMDUR) 30 mg 24 hr tablet Take 1 tablet by mouth once daily. lisinopril (ZESTRIL, PRINIVIL) 40 mg tablet Take 1 tablet by mouth once daily. ticagrelor (BRILINTA) 90 mg tablet Take 1 tablet by mouth twice daily. aspirin 81 mg chewable tablet Take 1 tablet by mouth once daily. nitroglycerin sublingual (NITROQUICK) 0.4 mg SL tablet Dissolve 1 tablet under the tongue every 5 minutes as needed for chest pain. carvedilol (COREG) 25 mg tablet Take 1 tablet by mouth twice daily. varenicline (CHANTIX STARTING MONTH BOX) 0.5 mg (11)- 1 mg (42) tablet Take 0.5 mg by mouth once daily on Days 1 through 3, THEN 0.5 mg twice daily on Days 4 through 7, THEN 1 mg twice daily on Day 8 and thereafter No current facility-administered medications for this visit. ALLERGIES Allergen Reactions Erythrocin [Erythro* Anaphylaxis Review of Systems: Review of Systems Constitutional: Negative for chills, diaphoresis and fever. HENT: Negative for hearing loss. Eyes: Negative for blurred vision, double vision and photophobia. Respiratory: Negative for cough, hemoptysis, shortness of breath and wheezing. Cardiovascular: Negative for chest pain, palpitations, orthopnea, claudication, leg swelling and PND. Gastrointestinal: Negative for abdominal pain, constipation, diarrhea, heartburn and nausea. Genitourinary: Negative for frequency. Musculoskeletal: Negative for back pain, falls, joint pain, myalgias and neck pain. Skin: Negative for itching and rash. Neurological: Negative for dizziness, tingling, tremors, weakness and headaches. Endo/Heme/Allergies: Does not bruise/bleed easily. Psychiatric/Behavioral: Negative for depression and memory loss. The patient is not nervous/anxious. Physical Examination: BP 148/94 (BP Site: Left Arm, BP Position: Sitting, BP Cuff Size: Large Adult) Pulse 70 Resp 18 Ht 6' 1 (1.854 m) Wt 223 lb (101.2 kg) SpO2 99% BMI 29.42 kg/m BMI 29.42 kg/(m^2) Physical Exam Vitals and nursing note reviewed. HENT: Head: Normocephalic. Eyes: Pupils: Pupils are equal, round, and reactive to light. Neck: Thyroid: No thyromegaly. Cardiovascular: Rate and Rhythm: Normal rate and regular rhythm. Heart sounds: Normal heart sounds. Comments: Rt Radial Cath site without bruising ecchymosis 2+ Radial pulse Pulmonary: Breath sounds: Normal breath sounds. Abdominal: General: Bowel sounds are normal. Palpations: Abdomen is soft. Musculoskeletal: General: Normal range of motion. Cervical back: Normal range of motion and neck supple. Skin: General: Skin is warm and dry. Neurological: Mental Status: He is alert and oriented to person, place, and time. Psychiatric: Mood and Affect: Mood and affect normal. Cognition and Memory: Memory normal. Judgment: Judgment normal. Cardiac Testing and Procedures: Echocardiogram 03/02/2022-EF 52% mild LVH dilated aorta 3.9 cm 09/12/2015-EF 59% dilated aorta at sinus at 4.1 cm Stress testing 07/2013-exercised Benedicto protocol negative for ischemia EF 56% Cardiac catheterization 03/04/2022-normal left main, LAD mild diffuse disease, circumflex 80% distal, RCA 50% proximal 40% mid, status post PTCA drug-eluting stent to the circumflex Recommendations: 1. Non-ST segment elevated ND-status post PTCA drug-eluting stent to the circumflex continue with aspirin and Brilinta uninterrupted for a years period of time. Will require decrease dose of Brilinta to 60 mg twice daily after completing a years worth due to non-ST segment elevated ND. Continue beta-romel and Lipitor therapy. 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 2. Hypertension blood pressure elevated 148/94 we will increase carvedilol to 25 mg twice daily. Continue with beta as well and LISA inhibitor therapy. 2 g sodium diet. 3. Hyperlipidemia LDL during hospital stay was 139 he was started on high intense statin therapy. He will have repeat fasting lipid and hepatic panel done in a month. 4. Tobacco abuse-he has been unsuccessful in smoking cessation he has tried NicoDerm patch NicoDerm gum he is asking about Chantix I will provide starter pack for him. Likely not to be covered under his insurance he is willing to try [id number] expense. 5. Mild compensated systolic heart failure-EF about 52%. Remains on beta-romel as well as LISA inhibitor he appears euvolemic on exam showing no clinical signs of decompensated heart failure. In summary Mr. Carey presents in a status post hospital visit after sustaining a non-ST segment elevated ND. He did undergo PCI and stenting to the circumflex he has nonobstructive disease in the RCA. He will continue with medical therapy. We need better control of blood pressure I have increased carvedilol he will follow-up in 3 months in the [place] office with Dr. Jacobs as this is closer to patient's home in [place] documented in this encounter [facility] 04-03-2022 Instructions Jenifer Lui APRN.CNP - 04/03/2022 11:30 AM EDT Images from the original note were not included. Coronary Artery Disease View image View image What is coronary artery disease? Coronary artery disease (CAD) is a type of heart disease caused by a problem with the blood vessels that bring blood and oxygen to the heart muscle. These arteries are called the coronary arteries. This disease increases your risk for heart attack and sudden . What is the cause? Fatty deposits called plaque may build up in blood vessels and make them narrower. The narrowing decreases the amount of blood flow to the heart. Plaque also increases the chance that blood clots may form and block a blood vessel, which can cause a heart attack or stroke. Your risk for CAD may be higher if you: Have a family history of coronary artery disease at an early age Smoke Have high blood pressure Have diabetes Are very overweight Don t get enough exercise Have high levels of blood fat--for example, high cholesterol What are the symptoms? Coronary artery disease may not cause any symptoms. When there are symptoms, the most common one is chest pain, called angina. You may feel: A feeling of tightness or heaviness in the chest Squeezing, pressure, or burning in the chest Angina symptoms usually: Last for 5 minutes or less and go away with rest or medicine such as nitroglycerin. Happen when the heart has to work harder, such as after a heavy meal or during physical activity or emotional stress. Angina may also happen when you are resting. Call 911 for emergency help right away if you have symptoms of a heart attack. The most common symptoms include: Chest pain or pressure, squeezing, or fullness in the center of your chest that lasts more than a few minutes, or goes away and comes back (may feel like indigestion or heartburn) Pain or discomfort in one or both arms or shoulders, or in your back, neck, jaw, or stomach Trouble breathing Breaking out in a cold sweat for no known reason If your provider has prescribed nitroglycerin for angina, pain that does not go away after taking your nitroglycerin as directed Along with these symptoms, you may also feel very tired, faint, or be sick to your stomach. How is it diagnosed? Your healthcare provider will ask about your symptoms and medical history and examine you. Tests may include: Blood tests An ECG (also called an EKG or electrocardiogram), which measures and records your heartbeat. An exercise treadmill test to see how your heart works when you exercise An echocardiogram, which uses sound waves (ultrasound) to see how well your heart is pumping Angiogram, which is a series of X-rays taken after your healthcare provider injects a special dye into your blood vessels to show the kearns of the arteries and any blockage CT scan, which uses X-rays and a computer to show detailed pictures of the arteries How is it treated? Your treatment depends on many factors, such as your age, heart muscle function, and other health problems. At first, treatment may include diet changes and an exercise program. Your healthcare provider may prescribe medicine. Many people need to take 2 or more medicines to help prevent a heart attack or stroke. It may take several weeks or months to find the best treatment for you. Your provider may also prescribe other types of medicine to lower blood pressure, help stop chest pain, control an irregular heartbeat, help prevent blood clots, or lower blood fat (cholesterol). Your provider may recommend a daily low dose of aspirin. Taking an aspirin every day may lower your risk for a heart attack or stroke. Not everyone should take aspirin. Daily use of aspirin can cause problems, such as stomach irritation, bleeding, and hearing loss. Ask your healthcare provider if you should take aspirin and if so, how much to take. If your coronary arteries are badly blocked, you may need balloon angioplasty or bypass surgery. A balloon angioplasty opens blocked blood vessels and improves blood flow. A metal mesh device called a stent is usually left in the blood vessels to help keep them open. Bypass surgery uses blood vessels from other parts of the body, or manmade material, to make a new path around a blocked area. How can I take care of myself? If you have coronary artery disease, there are things you can do to take care of yourself now and prevent problems in the future. Follow your provider's advice about activity, exercise, medicine, and follow-up visits. Lower the amount of salt, saturated and trans fats, and cholesterol in your diet. Work with your healthcare provider to control diabetes, blood pressure, or other health problems you may have. Try to keep a healthy weight. If you are overweight, talk to your provider about ways to lose weight. If you smoke, try to quit. Talk to your healthcare provider about ways to quit smoking. Ask your healthcare provider: o How and when you will hear your test results o How long it will take to recover o What activities you should avoid and when you can return to your normal activities o How to take care of yourself at home o What symptoms or problems you should watch for and what to do if you have them Make sure you know when you should come back for a checkup. How can I help prevent coronary artery disease? You can prevent this disease with a heart-healthy lifestyle: Eat a healthy diet and keep a healthy weight. Stay fit with the right kind of exercise for you. Find ways to manage stress. Don t smoke. Limit your use of alcohol. Talk to your healthcare provider about your personal and family medical history and your lifestyle habits. This will help you know what you can do to lower your risk for coronary artery disease. If you have a strong family history of CAD, a healthy lifestyle may slow the start of the disease and maybe even keep you from getting it. However, you must have regular checkups to keep a close watch on the health of your heart. Developed by [employer]. Published by [employer]. Copyright 2014 [employer] and/or one of its subsidiaries. All rights reserved. Cholesterol: Controlling with Lifestyle Changes What is cholesterol? Cholesterol is a type of fat. Your body makes some cholesterol and gets the rest from foods such as meats, dairy products, and eggs. Cholesterol has both good and bad effects on the body. Your body uses cholesterol to make hormones and to build and maintain cells. When your body has too much cholesterol, the excess fat sticks to the inside of the blood vessel kearns. This is called plaque. Plaque makes the blood vessel kearns thicker and the area inside the vessels smaller. This means less blood can flow through the blood vessels. Also, pieces of plaque may break off and block blood flow, which can cause a heart attack or stroke. The main types of cholesterol are LDL (low-density lipoprotein) and HDL (high-density lipoprotein). LDL leaves behind fatty deposits on artery kearns and contributes to heart disease. LDL is called bad cholesterol. (You can think of L for lousy cholesterol.) HDL does the opposite: It cleans the artery kearns, removes extra cholesterol from the body, and lowers the risk of heart disease. HDL is called good cholesterol. (Think of H for healthy cholesterol.) It is good to have lower levels of LDL and higher levels of HDL. Your healthcare provider can check your cholesterol with a blood test. Controlling the level of cholesterol in your blood lowers your risk for heart disease. It also lowers the chance of a heart attack or from heart disease if you already have heart disease. How can I control my cholesterol level? You can often control cholesterol levels by: Eating healthy Losing weight if you are overweight Exercising Not smoking If you have a high risk for heart disease, your healthcare provider may prescribe cholesterol-lowering medicine as well as changes in your diet and other aspects of your lifestyle. Your provider may also prescribe medicine if you have an inherited tendency to have high cholesterol. Eat healthy. A diet high in fiber and low in saturated fat and cholesterol can help prevent or lower cholesterol levels. You can find out how much and what kind of fat a food has by reading the food label. No more than 20 to 35% of your total calories should be from fat. Most of the fat you eat should be polyunsaturated or monounsaturated fat. These fats are healthier than other types of fat. They can be found in foods such as fish, avocados, vegetable oils (especially olive oil), nuts (like almonds, peanuts, and walnuts) and seeds (for example, pumpkin seeds). Limit the amount of saturated and trans fat that you eat. Saturated fat is found in whole milk, cheese, butter, ice cream, cream, lard, fatty cuts of meat, poultry with the skin on, and some tropical vegetable oils, such as coconut and palm kernel oil. Trans fat may be found in stick margarine, shortening, Slovenian fries, cookies, crackers, and bakery goods. If the food label has the words partially hydrogenated , the product probably has trans fat. Limit the cholesterol in your diet to less than 300 mg a day. If you have heart disease or a high risk of heart disease, limit cholesterol to less than 200 mg a day. Changes you can make in your diet include: Drink nonfat or 1% milk instead of whole milk, and eat fat-free or low-fat milk, cheese, spreads, and yogurt. Use egg whites or egg substitutes rather than whole eggs. Use salad dressings made from healthy oils, such as canola, olive, peanut, and flaxseed oil. Eat fish, chicken and turkey cooked without the skin, and meatless entrees. Eat red meat (beef, pork, morris) and processed meats (like salami, bologna, hot dogs, sausage, and morales) no more than 2 times a week. Choose lean cuts of meat and trim off all visible fat. Choose at least 90% lean ground beef. Keep portion sizes moderate, which is about 3 to 4 ounces per serving. Eat less sugar and less fried food and junk food, like Slovenian fries, chips, cookies, crackers, and doughnuts. Choose healthier desserts, such as fresh fruits, nonfat frozen yogurt, and Popsicles. Avoid fatty desserts such as ice cream, cream-filled cakes, and cheesecakes. Eat more fruit, vegetables; beans; and whole grains, such as oats, brown rice, quinoa and bran. The fiber in these foods helps lower cholesterol. Eat 1.5 ounces (42.5 grams) a day of unsalted nuts and seeds. Nuts and seeds are full of fiber, protein, and healthy fats. Nuts and seeds are also high in calories, so they should be eaten in small portions and used to replace other protein foods, like some meat or poultry, rather than being added to the diet. Examples of nuts and seeds that can be a part of a healthy diet are walnuts, almonds, hazelnuts, peanuts, pecans, and pistachio nuts, sunflower seeds, and pumpkin seeds. Check labels for plant sterols or stanols added to some foods, such as special margarines, milk, and orange juice. These ingredients can help lower LDL. The recommended amount is 2 grams a day. Limit alcohol to no more than 2 drinks a day for men and 1 drink a day for women. Ask your healthcare provider for a referral to a waste handling technician to learn more about eating healthy. Lose excess weight. You can lose weight by eating fewer calories. Losing weight: Helps lower both total cholesterol and bad LDL cholesterol Increases your energy and helps you feel better (both physically and mentally) Lowers your risk for heart attack or stroke Talk to your healthcare provider about your weight. If you need to lose weight, plan for a gradual weight loss of 1 to 2 pounds a week. Exercise. Being physically active also helps control cholesterol. Exercise helps because it: Keeps your weight down Lowers your total cholesterol Lowers your LDL (bad cholesterol) Raises your HDL (good cholesterol) A good exercise goal is at least 2 hours and 30 minutes (150 minutes) of moderate exercise a week. Moderate exercise means you're working hard enough to raise your heart rate and break a sweat. Examples of moderate exercise are walking fast, doing water aerobics, or playing doubles tennis. Increasing the intensity of your exercise or getting at least 5 hours (300 minutes) of moderate exercise a week will have even greater health benefits. It can help you lose weight and keep a healthy weight. If you haven't been exercising, ask your healthcare provider for an exercise prescription and start your new exercise program slowly. Don t smoke. Smoking increases your risk of heart disease because it lowers HDL levels, increases your risk of blood clots and stroke, and decreases oxygen to the tissues. If you smoke, talk to your healthcare provider about quitting. How can I know if my cholesterol level is normal? Get your cholesterol levels checked by your healthcare provider regularly. At first your cholesterol level may need to be checked every 3 to 6 months until it is staying in the normal range. Then you may need to check it just once a year. Developed by [employer]. Published by [employer]. Copyright 2014 [employer] and/or one of its subsidiaries. All rights reserved. High Blood Pressure: Essential Hypertension What is high blood pressure? Blood pressure is the force of blood against artery kearns as the heart pumps blood through the body. You may be told that you have high blood pressure (hypertension) if your blood pressure is higher than normal. Hypertension is called essential when no cause for it can be found. When the cause of hypertension is known, such as kidney disease or a tumor, it is called secondary hypertension. Blood pressure can rise and fall with exercise, rest, or emotions. Normal resting blood pressure ranges up to 120/80 ( 120 over 80 ). The first number (120 in this example) is the pressure when the heart beats and pushes blood out to the rest of the body. The second number (80 in this example) is the pressure when the heart rests between beats. Blood pressure is borderline high if it is 120/80 or higher but less than 140/90. High blood pressure is 140/90 or higher. If you have chronic kidney disease, 130/80 or higher is considered high blood pressure. Why is high blood pressure a problem? High blood pressure is a problem in many ways. Your heart has to work harder to pump blood through your body. The added workload on the heart causes thickening of the heart muscle. Over time, the thickening damages the heart muscle so that it can no longer pump normally. This can lead to a disease called heart failure. The higher pressure in your arteries may cause them to weaken and bleed, resulting in a stroke. As you get older, blood vessels may become hardened. High blood pressure speeds up this process. Hardened or narrowed arteries may not be able to supply enough blood to all parts of your body. High blood pressure may lead to atherosclerosis, in which deposits of cholesterol, fatty substances, and blood cells clog up an artery. Atherosclerosis is the leading cause of heart attacks. It can also cause strokes. Your kidneys, brain, and eyes may also be damaged. You may need treatment for high blood pressure for the rest of your life. However, proper treatment can control your blood pressure and help prevent heart disease, heart attack, or stroke. It can also help prevent long-term health problems, such as heart failure, kidney failure, blindness, and dementia. If you already have some complications, such as breathing problems or chest pain, lowering your blood pressure may make these problems less severe. What is the cause? There are no clear causes of essential hypertension. However, many things can increase blood pressure, such as: Being overweight Smoking Eating a diet high in salt Drinking a lot of alcohol Other important factors include: Race. Americans are more likely to have high blood pressure. Gender. Males have a greater chance of developing high blood pressure than women until age 55. After the age of 75, women are more likely to develop high blood pressure than men. Heredity. If you have parents with high blood pressure, you are more at risk. Age. The older you get, the more likely you are to have high blood pressure. Also, some medicines increase blood pressure. Stress and drinking caffeine can make blood pressure go up temporarily but it s not clear that they have any long-term effects on blood pressure. What are the symptoms? You may have high blood pressure for a long time without symptoms. You may not be able to tell by the way you feel that your blood pressure is high. The only way to find out if your blood pressure is high is to have it measured. That's why it s important to have your blood pressure checked at least once a year. When high blood pressure does cause symptoms, they may include: Headaches Nosebleeds Getting tired easily Blurred vision Dizziness Fast or irregular heartbeat Shortness of breath Chest pain How is it diagnosed? Blood pressure is checked at most healthcare visits. High blood pressure is usually discovered during one of these visits. If your blood pressure is high, you will be asked to return for follow-up checks. Your healthcare provider will ask about your personal and family medical history and examine you. Tests to look for a possible cause of high blood pressure may include: Urine and blood tests Chest X-ray Electrocardiogram (ECG), which measures and records your heartbeat You may be asked to use a portable blood-pressure measuring device, which will take your pressure at different times during day and night. How is it treated? If your blood pressure is borderline high, you may be able to bring it down to a normal level without medicine. Weight loss, changes in your diet, and exercise may be the only treatment you need. If lifestyle changes don t lower your blood pressure enough, your healthcare provider may prescribe medicine. Many people need to take 2 or more medicines to bring their blood pressure down to a healthy level. It may take several weeks or months to find the best treatment for you. How can I take care of myself? If you have high blood pressure, there are things you can do now to take care of yourself and to prevent problems in the future: Follow your treatment plan and know how to take your medicines. ?Work with your healthcare provider to find what lifestyle changes and medicines are right for you. ?Follow the directions that come with your medicine, including information about food or alcohol. Make sure you know how and when to take your medicine. Do not take more or less than you are supposed to take. ?Many medicines have side effects. A side effect is a symptom or problem that is caused by the medicine. Ask your healthcare provider or pharmacist what side effects your medicine may cause and what you should do if you have side effects. Ask if you should avoid some nonprescription medicines. ?Be careful with nonprescription medicines or herbal supplements. Some can raise blood pressure. This includes diet pills, cold and pain medicines, and energy boosters. Read labels or ask your pharmacist if the medicine or supplement affects blood pressure. Some illegal drugs, like cocaine, can also affect blood pressure. ?Check your blood pressure (or have it checked) as often as your provider advises. Keep a diary of the readings. A diary is also a good place to note your exercise, weight, salt intake, types of food you are eating, and your feelings. This can help you learn how these things can affect your blood pressure. Take your diary with you when you visit your provider. Don t smoke. Eat a healthy diet that is low in salt, saturated fat, trans fat, and cholesterol. Include lots of fruits, vegetables, and fat-free or low-fat milk and milk products. Get regular exercise, according to your healthcare provider's advice. For example, you might walk, bike, or swim at least 30 minutes 3 to 5 times a week. Limit the amount of alcohol you drink. Moderate drinking is up to 1 drink a day for women and up to 2 drinks for men. Lose weight if you need to. Try to reduce the stress in your life or learn how to deal better with situations that make you feel anxious. Ask your healthcare provider: ?How and when you will hear your test results ?How long it will take to recover ?What activities you should avoid and when you can return to your normal activities ?How to take care of yourself at home ?What symptoms or problems you should watch for and what to do if you have them Make sure you know when you should come back for a checkup. How can I help prevent high blood pressure? You can help prevent this disease with a heart-healthy lifestyle: Eat a healthy diet and keep a healthy weight. Stay fit with the right kind of exercise for you. Decrease stress. Don t smoke. Limit your use of alcohol. Talk to your healthcare provider about your personal and family medical history and your lifestyle habits. This will help you know what you can do to lower your risk for high blood pressure. Developed by [employer]. Published by [employer]. Copyright 2014 [employer] and/or one of its subsidiaries. All rights reserved. documented in this encounter [facility] 04-03-2022 Nurse Note Patient c/o intermittent SOB. 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 Your discharge instructions are important in guiding you through the recovery process. Is there anything I could help you clarify on your discharge instructions? (Standard Question) No 2. Do you have your follow up appointment related to your hospital stay scheduled within the next 30 days? (Standard Question) Yes 3. Do you have all the necessary equipment and supplies at home? (Standard Question) Yes 4. Many patients have concerns about their medications once they are home. Do you have any questions about getting or taking your medications? (Standard Question) No 5. Do you have any new or different symptoms? (Standard Question) No documented in this encounter [facility] documented as of this encounter (statuses as of 03/07/2022) [facility] History of Past illness Narrative* Problem Noted Date Resolved Date ACS (acute coronary syndrome) 03/01/2022 TIA (transient ischemic attack) 09/11/2015 03/05/2022 Overview: In the setting of HTN, HL and active smoking.Weakness resolved in 5 mts with no deficit.Previous Echo in 2012 with out any PFO and valvular abnormalities.No history of A.fib. ABCD 2 ( BP>140 - 1, Unilateral weakness - 2) score of 3 (1% risk of stroke in 72 hrs).Elevated cholesterol on lipid panel with normal MRI brain and MRA.Carotid doppler negative Plan: - follow Neurology recs - continue aspirin 81 mg and atorvastatin 40 mg - follow echo HTN (hypertension) 09/11/2015 03/05/2022 Overview: Continue home dose of Lisinopril 5 mg and Metoprolol 100 ER Hyperlipidemia 09/11/2015 03/05/2022 Overview: On Lipitor 10 mg at home.Elevated cholesterol and low HDL on lipid panel Plan: - continue Lipitor to 40 mg Anxiety state, unspecified 12/29/200703/05 Elevated blood pressure read ing without diagnosis of hypertension 12/11/2007 03/05/2022 Tobacco use disorder 12/11/2007 03/05/2022 documented as of this encounter (statuses as of 04/03/2022) [facility] History of Past illness Narrative* Problem Noted Date Resolved Date ACS (acute coronary syndrome) 03/01/2022 TIA (transient ischemic attack) 09/11/2015 03/05/2022 Overview: In the setting of HTN, HL and active smoking.Weakness resolved in 5 mts with no deficit.Previous Echo in 2012 with out any PFO and valvular abnormalities.No history of A.fib. ABCD 2 ( BP>140 - 1, Unilateral weakness - 2) score of 3 (1% risk of stroke in 72 hrs).Elevated cholesterol on lipid panel with normal MRI brain and MRA.Carotid doppler negative Plan: - follow Neurology recs - continue aspirin 81 mg and atorvastatin 40 mg - follow echo HTN (hypertension) 09/11/2015 03/05/2022 Overview: Continue home dose of Lisinopril 5 mg and Metoprolol 100 ER Hyperlipidemia 09/11/2015 03/05/2022 Overview: On Lipitor 10 mg at home.Elevated cholesterol and low HDL on lipid panel Plan: - continue Lipitor to 40 mg Anxiety state, unspecified 12/29/200703/05 Elevated blood pressure read ing without diagnosis of hypertension 12/11/2007 03/05/2022 Tobacco use disorder 12/11/2007 03/05/2022 documented as of this encounter (statuses as of 04/04/2022) [facility] History of Past illness Narrative* Problem Noted Date Resolved Date ACS (acute coronary syndrome) 03/01/2022 TIA (transient ischemic attack) 09/11/2015 03/05/2022 Overview: In the setting of HTN, HL and active smoking.Weakness resolved in 5 mts with no deficit.Previous Echo in 2012 with out any PFO and valvular abnormalities.No history of A.fib. ABCD 2 ( BP>140 - 1, Unilateral weakness - 2) score of 3 (1% risk of stroke in 72 hrs).Elevated cholesterol on lipid panel with normal MRI brain and MRA.Carotid doppler negative Plan: - follow Neurology recs - continue aspirin 81 mg and atorvastatin 40 mg - follow echo HTN (hypertension) 09/11/2015 03/05/2022 Overview: Continue home dose of Lisinopril 5 mg and Metoprolol 100 ER Hyperlipidemia 09/11/2015 03/05/2022 Overview: On Lipitor 10 mg at home.Elevated cholesterol and low HDL on lipid panel Plan: - continue Lipitor to 40 mg Anxiety state, unspecified 12/29/200703/05 Elevated blood pressure read ing without diagnosis of hypertension 12/11/2007 03/05/2022 Tobacco use disorder 12/11/2007 03/05/2022 documented as of this encounter (statuses as of 07/10/2022) [facility] History of Past illness Narrative* Problem Noted Date Resolved Date ACS (acute coronary syndrome) 03/01/2022 TIA (transient ischemic attack) 09/11/2015 03/05/2022 Overview: In the setting of HTN, HL and active smoking.Weakness resolved in 5 mts with no deficit.Previous Echo in 2012 with out any PFO and valvular abnormalities.No history of A.fib. ABCD 2 ( BP>140 - 1, Unilateral weakness - 2) score of 3 (1% risk of stroke in 72 hrs).Elevated cholesterol on lipid panel with normal MRI brain and MRA.Carotid doppler negative Plan: - follow Neurology recs - continue aspirin 81 mg and atorvastatin 40 mg - follow echo HTN (hypertension) 09/11/2015 03/05/2022 Overview: Continue home dose of Lisinopril 5 mg and Metoprolol 100 ER Hyperlipidemia 09/11/2015 03/05/2022 Overview: On Lipitor 10 mg at home.Elevated cholesterol and low HDL on lipid panel Plan: - continue Lipitor to 40 mg Anxiety state, unspecified 12/29/200703/05 Elevated blood pressure read ing without diagnosis of hypertension 12/11/2007 03/05/2022 Tobacco use disorder 12/11/2007 03/05/2022 documented as of this encounter (statuses as of 07/10/2022) [facility] History of Past illness Narrative* Problem Noted Date Resolved Date ACS (acute coronary syndrome) 03/01/2022 TIA (transient ischemic attack) 09/11/2015 03/05/2022 Overview: In the setting of HTN, HL and active smoking.Weakness resolved in 5 mts with no deficit.Previous Echo in 2012 with out any PFO and valvular abnormalities.No history of A.fib. ABCD 2 ( BP>140 - 1, Unilateral weakness - 2) score of 3 (1% risk of stroke in 72 hrs).Elevated cholesterol on lipid panel with normal MRI brain and MRA.Carotid doppler negative Plan: - follow Neurology recs - continue aspirin 81 mg and atorvastatin 40 mg - follow echo HTN (hypertension) 09/11/2015 03/05/2022 Overview: Continue home dose of Lisinopril 5 mg and Metoprolol 100 ER Hyperlipidemia 09/11/2015 03/05/2022 Overview: On Lipitor 10 mg at home.Elevated cholesterol and low HDL on lipid panel Plan: - continue Lipitor to 40 mg Anxiety state, unspecified 12/29/200703/05 Elevated blood pressure read ing without diagnosis of hypertension 12/11/2007 03/05/2022 Tobacco use disorder 12/11/2007 03/05/2022 documented as of this encounter (statuses as of 07/11/2022) [facility] History of Past illness Narrative* Problem Noted Date Resolved Date ACS (acute coronary syndrome) 03/01/2022 TIA (transient ischemic attack) 09/11/2015 03/05/2022 Overview: In the setting of HTN, HL and active smoking.Weakness resolved in 5 mts with no deficit.Previous Echo in 2012 with out any PFO and valvular abnormalities.No history of A.fib. ABCD 2 ( BP>140 - 1, Unilateral weakness - 2) score of 3 (1% risk of stroke in 72 hrs).Elevated cholesterol on lipid panel with normal MRI brain and MRA.Carotid doppler negative Plan: - follow Neurology recs - continue aspirin 81 mg and atorvastatin 40 mg - follow echo HTN (hypertension) 09/11/2015 03/05/2022 Overview: Continue home dose of Lisinopril 5 mg and Metoprolol 100 ER Hyperlipidemia 09/11/2015 03/05/2022 Overview: On Lipitor 10 mg at home.Elevated cholesterol and low HDL on lipid panel Plan: - continue Lipitor to 40 mg Anxiety state, unspecified 12/29/200703/05 Elevated blood pressure read ing without diagnosis of hypertension 12/11/2007 03/05/2022 Tobacco use disorder 12/11/2007 03/05/2022 documented as of this encounter (statuses as of 07/11/2022) [facility] History of Past illness Narrative* Problem Noted Date Resolved Date ACS (acute coronary syndrome) 03/01/2022 TIA (transient ischemic attack) 09/11/2015 03/05/2022 Overview: In the setting of HTN, HL and active smoking.Weakness resolved in 5 mts with no deficit.Previous Echo in 2012 with out any PFO and valvular abnormalities.No history of A.fib. ABCD 2 ( BP>140 - 1, Unilateral weakness - 2) score of 3 (1% risk of stroke in 72 hrs).Elevated cholesterol on lipid panel with normal MRI brain and MRA.Carotid doppler negative Plan: - follow Neurology recs - continue aspirin 81 mg and atorvastatin 40 mg - follow echo HTN (hypertension) 09/11/2015 03/05/2022 Overview: Continue home dose of Lisinopril 5 mg and Metoprolol 100 ER Hyperlipidemia 09/11/2015 03/05/2022 Overview: On Lipitor 10 mg at home.Elevated cholesterol and low HDL on lipid panel Plan: - continue Lipitor to 40 mg Anxiety state, unspecified 12/29/200703/05 Elevated blood pressure read ing without diagnosis of hypertension 12/11/2007 03/05/2022 Tobacco use disorder 12/11/2007 03/05/2022 documented as of this encounter (statuses as of 09/30/2022) [facility] History of Past illness Narrative* Problem Noted Date Resolved Date ACS (acute coronary syndrome) 03/01/2022 TIA (transient ischemic attack) 09/11/2015 03/05/2022 Overview: In the setting of HTN, HL and active smoking.Weakness resolved in 5 mts with no deficit.Previous Echo in 2012 with out any PFO and valvular abnormalities.No history of A.fib. ABCD 2 ( BP>140 - 1, Unilateral weakness - 2) score of 3 (1% risk of stroke in 72 hrs).Elevated cholesterol on lipid panel with normal MRI brain and MRA.Carotid doppler negative Plan: - follow Neurology recs - continue aspirin 81 mg and atorvastatin 40 mg - follow echo HTN (hypertension) 09/11/2015 03/05/2022 Overview: Continue home dose of Lisinopril 5 mg and Metoprolol 100 ER Hyperlipidemia 09/11/2015 03/05/2022 Overview: On Lipitor 10 mg at home.Elevated cholesterol and low HDL on lipid panel Plan: - continue Lipitor to 40 mg Anxiety state, unspecified 12/29/200703/05 Elevated blood pressure read ing without diagnosis of hypertension 12/11/2007 03/05/2022 Tobacco use disorder 12/11/2007 03/05/2022 documented as of this encounter (statuses as of 01/28/2023) [facility] History of Past illness Narrative* Problem Noted Date Resolved Date ACS (acute coronary syndrome) 03/01/2022 TIA (transient ischemic attack) 09/11/2015 03/05/2022 Overview: In the setting of HTN, HL and active smoking.Weakness resolved in 5 mts with no deficit.Previous Echo in 2012 with out any PFO and valvular abnormalities.No history of A.fib. ABCD 2 ( BP>140 - 1, Unilateral weakness - 2) score of 3 (1% risk of stroke in 72 hrs).Elevated cholesterol on lipid panel with normal MRI brain and MRA.Carotid doppler negative Plan: - follow Neurology recs - continue aspirin 81 mg and atorvastatin 40 mg - follow echo HTN (hypertension) 09/11/2015 03/05/2022 Overview: Continue home dose of Lisinopril 5 mg and Metoprolol 100 ER Hyperlipidemia 09/11/2015 03/05/2022 Overview: On Lipitor 10 mg at home.Elevated cholesterol and low HDL on lipid panel Plan: - continue Lipitor to 40 mg Anxiety state, unspecified 12/29/200703/05 Elevated blood pressure read ing without diagnosis of hypertension 12/11/2007 03/05/2022 Tobacco use disorder 12/11/2007 03/05/2022 documented as of this encounter (statuses as of 01/28/2023) [facility] History of Past illness Narrative* Problem Noted Date Diagnosed Date Resolved Date ACS (acute coronary syndrome) 03/01/2022 03/05/2022 TIA (transient ischemic attack) 09/11/2015 03/05/2022 Overview: In the setting of HTN, HL and active smoking.Weakness resolved in 5 mts with no deficit.Previous Echo in 2012 with out any PFO and valvular abnormalities.No history of A.fib. ABCD 2 ( BP>140 - 1, Unilateral weakness - 2) score of 3 (1% risk of stroke in 72 hrs).Elevated cholesterol on lipid panel with normal MRI brain and MRA.Carotid doppler negative Plan: - follow Neurology recs - continue aspirin 81 mg and atorvastatin 40 mg - follow echo HTN (hypertension) 09/11/2015 Overview: Continue home dose of Lisinopril 5 mg and Metoprolol 100 ER Hyperlipidemia 09/11/2015 03/05/2022 Overview: On Lipitor 10 mg at home.Elevated cholesterol and low HDL on lipid panel Plan: - continue Lipitor to 40 mg Anxiety state, unspecified 12/29/2007 0 03/05/2022 Elevated blood pressure read ing without diagnosis of hypertension 12/11/2007 03/05/2022 Tobacco use disorder 12/11/2007 022 documented as of this encounter (statuses as of 06/03/2023) [facility] History of Past illness Narrative* Problem Noted Date Diagnosed Date Resolved Date ACS (acute coronary syndrome) 03/01/2022 03/05/2022 TIA (transient ischemic attack) 09/11/2015 03/05/2022 Overview: In the setting of HTN, HL and active smoking.Weakness resolved in 5 mts with no deficit.Previous Echo in 2012 with out any PFO and valvular abnormalities.No history of A.fib. ABCD 2 ( BP>140 - 1, Unilateral weakness - 2) score of 3 (1% risk of stroke in 72 hrs).Elevated cholesterol on lipid panel with normal MRI brain and MRA.Carotid doppler negative Plan: - follow Neurology recs - continue aspirin 81 mg and atorvastatin 40 mg - follow echo HTN (hypertension) 09/11/2015 Overview: Continue home dose of Lisinopril 5 mg and Metoprolol 100 ER Hyperlipidemia 09/11/2015 03/05/2022 Overview: On Lipitor 10 mg at home.Elevated cholesterol and low HDL on lipid panel Plan: - continue Lipitor to 40 mg Anxiety state, unspecified 12/29/2007 0 03/05/2022 Elevated blood pressure read ing without diagnosis of hypertension 12/11/2007 03/05/2022 Tobacco use disorder 12/11/2007 022 documented as of this encounter (statuses as of 07/03/2023) [facility] Diagnosis Coronary artery disease involving [place] coronary artery of [place] heart without angina pectoris- Primary NSTEMI (non-ST elevated myocardial infarction) (HCC) Acute myocardial infarction, subendocardial infarction, episode of care unspecified Essential hypertension Unspecified essential hypertension Mixed hyperlipidemia Tobacco abuse Tobacco use disorder Primary hypertension Unspecified essential hypertension Other hyperlipidemia documented in this encounter [facility] Diagnosis Coronary artery disease involving [place] coronary artery of [place] heart without angina pectoris- Primary Primary hypertension Unspecified essential hypertension Smoker Tobacco use disorder documented [facility] this [facility] Diagnosis Coronary artery disease involving [place] coronary artery of [place] heart without angina pectoris- Primary Smoker Tobacco use disorder Primary hypertension Unspecified essential hypertension History of coronary artery stent placement Postsurgical percutaneous transluminal coronary angioplasty status documented in this encounter [facility])* Outpatient Procedure (Routine) - Closed Specialty Diagnoses / Procedures Referred By Contac t Referred To [facility] Diagnoses Coronary artery disease involving [place] coronary artery of [place] heart without angina pectoris Procedures ECG COMPLETE ECG ROUTINE ECG W/LEAST 12 LDS W/I&R Tyler Jacobs MD [address] [place] [address] [facility] [address] [place] [address] Referral ID Status Reason Start Date Expiration Date V isits Requested Visits Authorized [id number] Closed Auto-Generate d Referral 07/10/2022 07/10/2023 1 1 [facility] Discharge Instructions * Attachments The following attachments cannot be sent through Care Everywhere. * Coronavirus Disease (COVID-19): General Info ([place]) documented in this encounter Assessments Diagnosis Upper respiratory tract infection, unspecified type Summary Purpose Family History No Family History Records FoundNo Family History Records FoundNo Family History Records FoundNo Family History Records Found Advance Directives Documents on File Type Date Recorded Patient Stud Setter Expl anation Advance Directive(s) 03/01/2022 5:12 PM Additional Source Comments Reason for Visit (unrecogniz ed section and content) Reason Comments Follow Up Phone Call All Clear Reason Comments CARD Hospital Follow Up HLD Reason Comments Patient Question Shield Operator - Other Appointment Reason Comments CARD New Patient Consult Reason Comments Orders Reason Comments Results, Lab Sent to [facility] Reason Comments Refill Request Reason Comments Appointment Reason Comments Cardiology Follow Up HTN (unrecognized sect ion and content) No Status Records FoundNo Status Records FoundNo Status Records FoundNo Status Records Found INFORMATION SOURCE (unrecogn ized section and content) DATE CREATED AUTHOR AUTHOR'S ORGANIZ ATION 07/24/2022 [facility] DATE CREATED AUTHOR AUTHOR'S ORGANIZ ATION 10/20/2022 [facility] DATE CREATED AUTHOR AUTHOR'S ELIZABETH VERA 06/03/2023 [facility] Source Comments (unrecognize d section and content) In the event this informatio n is protected by the Federal Confidentiality of Alcohol and Drug Abuse Patient Records regulations: The Federal rules restrict any use of the information to criminally investigate or prosecute any alcohol or drug abuse patient.[facility] the event this information is protected by the Federal Confidentiality of Alcohol and Drug Abuse Patient Records regulations: The Federal rules restrict any use of the information to criminally investigate or prosecute any alcohol or drug abuse patient.[facility] the event this information is protected by the Federal Confidentiality of Alcohol and Drug Abuse Patient Records regulations: The Federal rules restrict any use of the information to criminally investigate or prosecute any alcohol or drug abuse patient.[facility] the event this information is protected by the Federal Confidentiality of Alcohol and Drug Abuse Patient Records regulations: The Federal rules restrict any use of the information to criminally investigate or prosecute any alcohol or drug abuse patient.[facility] the event this information is protected by the Federal Confidentiality of Alcohol and Drug Abuse Patient Records regulations: The Federal rules restrict any use of the information to criminally investigate or prosecute any alcohol or drug abuse patient.[facility] the event this information is protected by the Federal Confidentiality of Alcohol and Drug Abuse Patient Records regulations: The Federal rules restrict any use of the information to criminally investigate or prosecute any alcohol or drug abuse patient.[facility] Center[facility] the event this information is protected by the Federal Confidentiality of Alcohol and Drug Abuse Patient Records regulations: The Federal rules restrict any use of the information to criminally investigate or prosecute any alcohol or drug abuse patient.[facility] Center[facility] the event this information is protected by the Federal Confidentiality of Alcohol and Drug Abuse Patient Records regulations: The Federal rules restrict any use of the information to criminally investigate or prosecute any alcohol or drug abuse patient.[facility] Center[facility] the event this information is protected by the Federal Confidentiality of Alcohol and Drug Abuse Patient Records regulations: The Federal rules restrict any use of the information to criminally investigate or prosecute any alcohol or drug abuse patient.[facility] Center[facility] the event this information is protected by the Federal Confidentiality of Alcohol and Drug Abuse Patient Records regulations: The Federal rules restrict any use of the information to criminally investigate or prosecute any alcohol or drug abuse patient.[facility] Center[facility] the event this information is protected by the Federal Confidentiality of Alcohol and Drug Abuse Patient Records regulations: The Federal rules restrict any use of the information to criminally investigate or prosecute any alcohol or drug abuse patient.[facility] Center[facility] the event this information is protected by the Federal Confidentiality of Alcohol and Drug Abuse Patient Records regulations: The Federal rules restrict any use of the information to criminally investigate or prosecute any alcohol or drug abuse patient.[facility] Center[facility] the event this information is protected by the Federal Confidentiality of Alcohol and Drug Abuse Patient Records regulations: The Federal rules restrict any use of the information to criminally investigate or prosecute any alcohol or drug abuse patient.[facility] Center[facility] the event this information is protected by the Federal Confidentiality of Alcohol and Drug Abuse Patient Records regulations: The Federal rules restrict any use of the information to criminally investigate or prosecute any alcohol or drug abuse patient.[facility] Care Teams (unrecognized sec tion and content) Water Tester Relationship Specialty Start Date End Date Roger Lomeli MD PCP - General Family Practice 09/12/15 Water Tester Relationship Specialty Start Date End Date Roger Lomeli MD PCP - General Family Practice 09/12/15 Water Tester Relationship Specialty Start Date End Date Roger Lomeli MD PCP - General Family Practice 09/12/15 Water Tester Relationship Specialty Start Date End Date Roger Lomeli MD PCP - General Family Practice 09/12/15 Water Tester Relationship Specialty Start Date End Date Roger Lomeli MD PCP - [facility] Practice 09/12/15 Water Tester Relationship Specialty Start Date End Date Roger Lomeli MD PCP - General [facility] Practice 09/12/15 Water Tester Relationship Specialty Start Date End Date Roger Lomeli MD PCP - [facility] Medicine 09/12/15 Water Tester Relationship Specialty Start Date End Date Roger Lomeli MD PCP - [facility] 09/12/15 Water Tester Relationship Specialty Start Date End Date Roger Lomeli MD PCP - [facility] 09/12/15 Water Tester Relationship Specialty Start Date End Date Roger Lomeli MD PCP - [facility] 09/12/15 Water Tester Relationship Specialty Start Date End Date Roger Lomeli MD [facility] 09/12/15 FOR RECORDS PERTAINING TO PATIENTS WHO ARE OR HAVE BEEN ENROLLED IN A CHEMICAL DEPENDENCY/SUBSTANCEABUSE PROGRAM, SOME INFORMATION MAY BE OMITTED. This clinical summary was aggregated from multiple sources. Caution should be exercised in using it in the provision of clinical care. This summary normalizes information from multiple sources, and as a consequence, information in this document may materially change the coding, format and clinical context of patient data. In addition, data may be omitted in some cases. CLINICAL DECISIONS SHOULD BE BASED ON THE PRIMARY CLINICAL RECORDS. [facility] [employer] [facility]. provides no warranty or guarantee of the accuracy or completeness of information in this document.
[2023-11-20 12:42] LABS: Absolute Lymphocyte Count 3.75 X10^3/uL (0.83-4.51); Absolute Neutrophil Count 3.8 X10^3/uL (2.0-7.7); Basophil# 0.09 X10^3/uL; Basophil% 1.1 % (0-1); Eosinophil# 0.27 X10^3/uL; Eosinophils% 3.2 % (0-5); Hematocrit 43.3 % (40-54); Hemoglobin 14.7 g/dL (13.0-16.5); Lymphocyte # 3.75 X10^3/ul (0.83-4.51); Lymphocyte % 44.1 % (19-41); Mean Corp Hgb Conc 33.9 g/dL (32-36); Mean Corpuscular Hgb 31.5 pg (27.0-32.0); Mean Corpuscular Volume 92.7 fL (80-94); Mean Platelet Vol. 9.8 fl (6.2-12.0); Monocyte# 0.56 X10^3/uL; Monocyte% 6.6 % (0-10); NRBC Flagged by Analyzer 0 % (0-5); Neutrophil # 3.81 X10^3/uL (2.7-7.7); Neutrophil % 44.8 % (47-70); Platelet Count 305 K/mm3 (150-450); RBC Distribution Width CV 12.6 % (11.6-14.6); RBC Distribution Width SD 42.8 fl (35.1-43.9); Red Blood Count 4.67 M/mm3 (4.6-6.2); White Blood Count 8.5 K/mm3 (4.4-11.0)
[2023-11-20 13:31] LABS: ALB/GLOB Ratio 1.1 RATIO (0.9-2.4); AST(SGOT) 15 U/L (15-37); Alanine Aminotransfer ALT/SGPT 38 U/L (16-61); Albumin, Serum 3.6 g/dL (3.2-5.0); Alkaline Phosphatase 105 U/L (45-117); Anion Gap 2 (5-15); BUN 12 mg/dL (7-18); Calcium,Total 9.2 mg/dL (8.5-10.1); Chloride 111 mmol/L (98-107); Cholesterol 129 mg/dL (200); Creatinine, Serum 0.86 mg/dL (0.70-1.30); EST Glomerular Filtration Rate 100 mL/min (>60); Est Glom Filt Rate - Afr Amer 122 mL/min (>60); Globulin 3.3 g/dL (2.2-4.2); Glucose 101 mg/dL (74-106); High Density Lipoprotein 40 mg/dL; Potassium 4.2 mmol/L (3.5-5.1); Protein, Total 6.9 g/dL (6.4-8.2); Sodium Level 140 mmol/L (136-145); Thyroid Stim Hormone (TSH) 0.69 uIU/mL (0.358-3.74); Triglycerides 172 mg/dL; Very Low Density Lipoprotein 34 mg/dL (5-40)
== END | disposition home or self-care (01) ==
PROVIDERS: PCP Family Medicine; Referring Provider Family Medicine; Visit Provider Family Medicine
DX: R53.83 Other fatigue (principal); I10 Essential (primary) hypertension
CPT/HCPCS: 36415; 80053; 80061; 84403; 84443; 85025

== ENCOUNTER → 2025-10-14 | Outpatient (CLI) | payer BC, SELFPAY ==
[2025-10-14 13:12] LABS: Anion Gap 10 (5-15); BUN 17 mg/dL (4-19); BUN/Creat Ratio 23.1 RATIO (10-20); Calcium,Total 9.3 mg/dL (7.6-11.0); Carbon Dioxide 26.5 mmol/L (21.0-32.0); Chloride 106 mmol/L (98-108); Cholesterol 185 mg/dL (<=200); Glucose 102 mg/dL (70-99); Low Density Lipoprotein Calc. 113 mg/dL; Potassium 4.2 mmol/L (3.3-5.1); Triglycerides 171 mg/dL; Very Low Density Lipoprotein 34 mg/dL (5-40); cholesterol:hdl ratio screen 4.47
== END | disposition home or self-care (01) ==
LOC: MFPLAB 10:50
PROVIDERS: PCP Family Medicine; Visit Provider Family Medicine
DX: I10 Essential (primary) hypertension (principal)
CPT/HCPCS: 36415; 80048; 80061

== ENCOUNTER 2025-10-22 01:39 | Emergency (ER) | payer BC, SELFPAY ==
[2025-10-22 01:42] VITALS: BP 128/92; PULSE 80; RESP 19; TEMP 36.6; O2SAT 99; BMI 30.1
--- NOTE | 2025-10-22 01:49 | EKG12_ITS ---
Test Reason : Blood Pressure : */* mmHG Vent. Rate : 77 BPM Atrial Rate : 77 BPM P-R Int : 170 ms QRS Dur : 100 ms QT Int : 386 ms P-R-T Axes : 31 55 43 degrees QTcB Int : 436 ms Normal sinus rhythm Normal ECG Confirmed by Gigi Raymond ([id number]), science editor PREETHI LINARES ([id number]) on 10/28/2025 6:53:38 AM Referred By: Confirmed By: Gigi Raymond
[2025-10-22] MEDS: 0.9% Normal Saline (1000mL) 1,000 ML 999 ML IV (01:53)
[2025-10-22 01:57] LABS: Hematocrit 43.9 % (40-54); Hemoglobin 14.7 g/dL (13.0-16.5); Immature Granulocytes Count 0.040 X10^3/uL (0.0-0.0); Mean Corp Hgb Conc 33.5 g/dL (32-36); Mean Corpuscular Volume 92.8 fL (80-94); Mean Platelet Vol. 9.0 fl (6.2-12.0); NRBC Flagged by Analyzer 0 % (0-5); POSITIVE DIFFERENTIAL YES; POSITIVE MORPHOLOGY YES; Platelet Count 306 K/mm3 (150-450); RBC Distribution Width CV 12.6 % (11.6-14.6); RBC Distribution Width SD 43.2 fl (35.1-43.9); Red Blood Count 4.73 M/mm3 (4.6-6.2); White Blood Count 11.1 K/mm3 (4.4-11.0)
[2025-10-22 02:00] LABS: Differential Indicated SCAN CRITERIA MET
--- NOTE | 2025-10-22 02:00 | RAD_ITS ---
PROCEDURE: CHEST 1 VIEW (PORTABLE) 10/22/2025 REASON FOR EXAM: CHEST PAIN TECHNIQUE: Frontal view of the chest. COMPARISON: CT scan of the chest on 05/03/2022. FINDINGS: The lungs are expanded. There is no demonstrated parenchymal abnormality. There is no demonstrated pleural abnormality. Normal heart and pericardium. Normal mediastinum and david. Normal visualized pulmonary arteries. Normal visualized aortic arch and descending thoracic aorta. Normal visualized thoracic spine. Normal visualized ribs, clavicles, and shoulders. There is no demonstrated abnormality of the visualized soft tissue structures of the upper abdomen. RAD/Chest 1 View (Portable) IMPRESSION: No evidence for acute abnormality. Reading Location: [place]
[2025-10-22 02:06] LABS: Prothrombin Time (Protime)PT. 13.3 SECONDS (11.7-14.9)
[2025-10-22 02:07] LABS: Partial Thromboplast Time 26.0 Seconds (24.1-36.2)
--- OUTSIDE RECORDS SUMMARY | 2025-10-22 02:07 | XMS RPT_ITS | CCD ---
Author Organization [facility] Inform ion Partnership [facility] Care Team Providers Care Data Security Administrator Name Role Phone Unavailable Primary Care Provider UnavailHANK Kohli Attending Unavailable Heike SIBLEY, Roger Mosher Primary Care Provider Heike SIBLEY, Roger Mosher Primary Care Provider [phone] Heike SIBLEY, Roger Mosher Primary Care Provider [phone] ROGER FAGAN Primary Care Unavailable MARY SIBLEY, ss - [phone] Attending [facility] Roger Lomeli Primary Care Provider [phone] Dr. Joe Miguel Attending Provider [phone] Roger Lomeli MD Primary Care Provider ROGER LOMELI Primary Care Unavailable TYLER JACOBS Attending Unavailable Roger Lomeli Referring Unavailable Roger Lomeli Attending Unavailable Roger Lomeli Primary Care Unavailable TYLER JACOBS Attending Unavailable ROGER LOMELI Primary Care Unavailable Allergies Allergy Classification Reported Allergen(s) Allergy Type Date of Onset Reaction(s) Facility (17 sources) Erythromycin Drug Allergy 7 Swelling, Anaphylaxis [place], [place] (2 sources) ERYTHROMYCIN BASE; Translations: [ERYTHROMYCIN BASE] Propensity to adverse reactions to drug (disorder) 7 [facility] Other [place] [facility] Medications Current Medications Medication Drug Class(es) Dates Sig (Normalized) Sig (Original) Atenolol (1 source) beta-Adrenergic Bernice ATENOLOL PO Take by mouth 0 Active doxycycline hyclate 100 mg oral tablet (1 source) Tetracycline-class Drug Start: 07-03-2020 End: 07-10-2020 take 1 tablet by mouth twice daily doxycycline hyclate (VIBRA-TABS) 100 MG tablet Take 1 tablet by mouth 2 times daily for 7 days 14 tablet 0 07/03/2020 07/10/2020 Active ezetimibe 10 mg oral tablet (13 sources) Dietary Cholesterol Absorption Inhibitor Start: 07-11-2022 End: 06-02-2024 take 1 tablet by mouth once daily ezetimibe (ZETIA) 10 mg tablet Take 1 tablet by mouth once daily. 90 tablet 3 06/03/2023 06/02/2024 Active Comment on above: Take 1 tablet by delisa th once daily. TAKE 1 TABLET BY DELISA TH EVERY DAY 24 hr isosorbide mononitrate 30 mg extended release oral tablet (5 sources) Nitrate Vasodilator Start: 03-06-2022 End: 07-10-2022 take 1 tablet by mouth once daily isosorbide mononitrate ER (IMDUR) 30 mg 24 hr tablet Take 1 tablet by mouth once daily. 90 tablet 3 04/03/2022 07/10/2022 Discontinued (Clinical Decision) Comment on above: Take 1 tablet by delisa th once daily. lisinopril 40 mg oral tablet (15 sources) Angiotensin Converting Enzyme Inhibitor Start: 03-06-2022 End: 06-02-2024 take 1 tablet by mouth once daily lisinopril (ZESTRIL) 40 mg tablet Take 1 tablet by mouth once daily. 90 tablet 3 06/03/2023 06/02/2024 Active Comment on above: Take 1 tablet by delisa th once daily. predniSONE 50 mg oral tablet (1 source) Start: 07-03-2020 End: 07-08-2020 take 1 tablet by mouth once daily predniSONE (DELTASONE) 50 MG tablet Take 1 tablet by mouth daily for 5 days 5 tablet 0 07/03/2020 07/08/2020 Active Completed/Discontinued Medications Medication Drug Class(es) Dates Sig (Normalized) Sig (Original) amLODIPine 10 mg oral tablet (14 sources) Dihydropyridine Calcium Channel Bernice Start: 07-10-2022 End: 06-03-2023 take 1 tablet by mouth once daily amLODIPine (NORVASC) 10 mg tablet Take 1 tablet by mouth once daily. 90 tablet 3 06/03/2023 Active Comment on above: Take 1 tablet by delisa th once daily. aspirin 81 mg chewable tablet (16 sources) Platelet Aggregation Inhibitor, Nonsteroidal Anti-inflammatory Drug Start: 03-05-2022 take 1 tablet by mouth once daily aspirin 81 mg chewable tablet Take 1 tablet by mouth once daily. 30 tablet 0 03/05/2022 Active Comment on above: Take 1 tablet by delisa th once daily. atorvastatin 80 mg oral tablet (18 sources) HMG-CoA Reductase Inhibitor Start: 03-05-2022 End: 06-03-2023 take 1 tablet by mouth once daily at bedtime atorvastatin (LIPITOR) 80 mg tablet Take 1 tablet by mouth daily at bedtime. 90 tablet 3 06/03/2023 Active Comment on above: Take 1 tablet by delisa daily at bedtime. carvedilol 25 mg oral tablet (14 sources) alpha-Adrenergic Bernice, beta-Adrenergic Bernice Start: 04-04-2023 End: 06-03-2023 take 1 tablet by mouth twice daily carvedilol (COREG) 25 mg tablet Take 1 tablet by mouth twice daily. 180 tablet 0 04/04/2023 06/03/2023 Discontinued Start: 04-03-2022 take 1 tablet by delisa twice daily carvedilol (COREG) 25 mg tablet Take 1 tablet by mouth twice daily. 180 tablet 3 04/03/2022 Active Start: 03-05-2022 End: 06-03-2022 take 1 tablet by mouth twice daily at mealtime carvedilol (COREG) 12.5 mg tablet Take 1 tablet by mouth twice daily with meals. 180 tablet 0 03/05/2022 04/03/2022 Discontinued Comment on above: Take 1 tablet by delisa twice daily with meals. Take 1 tablet by delisa twice daily. nebivolol 10 mg oral tablet (5 sources) Start: 023 End: take 1 tablet by mouth once daily nebivolol (BYSTOLIC) 10 mg tablet TAKE 1 TABLET BY MOUTH EVERY DAY 90 tablet 3 07/03/2023 Active Comment on above: Take 1 tablet by delisa once daily. TAKE 1 TABLET BY DELISA TH EVERY DAY 24 hr nicotine 0.875 mg/hr transdermal system (2 sources) Cholinergic Nicotinic Agonist Start: End: apply 1 dose transdermal route once daily nicotine (NICODERM) 21 mg/24 hr Apply 1 Patch as directed once daily. 1 Patch 3 03/05/2022 04/03/2022 Discontinued Comment on above: Apply 1 Patch as dir ected once daily. nitroglycerin 0.4 mg sublingual tablet (16 sources) Nitrate Vasodilator Start: nitroglycerin sublingual (NITROQUICK) 0.4 mg SL tablet Dissolve 1 tablet under the tongue every 5 minutes as needed for chest pain. 25 tablet 0 03/05/2022 Active Comment on above: Dissolve 1 tablet un kamila the tongue every 5 minutes as needed for chest pain. sertraline 25 mg oral tablet (2 sources) Serotonin Reuptake Inhibitor Start: take 1 tablet by mouth once sertraline (ZOLOFT) 25 mg tablet Take 1 tablet by mouth every afternoon. 0 10/22/2023 Active Comment on above: Take 1 tablet by delisa th every afternoon. 50 ml sodium chloride 9 mg/ml injection (1 source) Start: End: 0.9 % sodium chloride bolus ticagrelor 90 mg oral tablet (16 sources) Start: End: take 1 tablet by mouth twice daily ticagrelor (BRILINTA) 90 mg tablet Take 1 tablet by mouth twice daily. 180 tablet 3 03/05/2022 Active Comment on above: Take 1 tablet by delisa th twice daily. varenicline 0.5 mg oral tablet (15 sources) Partial Cholinergic Nicotinic Agonist Start: End: take 1 tablet by mouth once daily varenicline (CHANTIX STARTING MONTH BOX) 0.5 mg (11)- 1 mg (42) tablet Take 0.5 mg by mouth once daily on Days 1 through 3, THEN 0.5 mg twice daily on Days 4 through 7, THEN 1 mg twice daily on Day 8 and thereafter 53 tablet 0 04/03/2022 Active varenicline tart rate (CHANTIX ORAL) Take by mouth. 0 Active Comment on above: Take 0.5 mg by mouth once daily on Days 1 through 3, THEN 0.5 mg twice daily on Days 4 through 7, THEN 1 mg twice daily on Day 8 and thereafter Take by mouth. Problems Problem Classification Problem Date Documented Da te Episodic/Chronic Acute myocardial infarction (1 source) Myocardial infarction; Translations: [Non-ST elevation (NSTEMI) myocardial infarction] Chronic Coronary atherosclerosis and other heart disease (19 sources) Coronary atherosclerosis; Translations: [Atherosclerotic heart disease of [place] coronary artery without angina pectoris] Onset: 04-03-2022 Chronic Disorders of lipid metabolism (17 sources) Mixed hyperlipidemia; Translations: [Mixed hyperlipidemia] Onset: 04-03-2022 Chronic Essential hypertension (20 sources) Essential hypertension; Translations: [Essential (primary) hypertension] Onset: 04-03-2022 Chronic Malaise and fatigue (1 source) Other fatigue; Translations: [Other fatigue] Onset: 11-25-2023 Episodic Other upper respiratory infections (1 source) Upper respiratory infection; Translations: [Upper respiratory tract infection, unspecified type] Episodic Residual codes; unclassified (1 source) Tobacco user; Translations: [Tobacco use] Episodic Substance-related disorders (3 sources) Smoker; Translations: [Nicotine dependence, unspecified, uncomplicated] Chronic Thyroid disorders (13 sources) Endemic goiter; Translations: [Iodine-deficiency related diffuse (endemic) goiter] Onset: 04-07-2018 07-09-2022 Chronic Results Test Name Value Interpretation Reference Range Facility [facility] 02-03-2024 [facility] Telephone (CARDWW) CARLOTTA PETERSEN V ([id number]) 1975 M Date Time Provider Department 02/03/24 TYLER JACOBS During your visit today, we recorded the following information about you: Lynn Cuello, RN 02/03/2024 10:49 AM Signed Received outside medical records from [facility] to the attention of Dr. Jacobs. Placed in Dr. Jacobs's [place] inbox to review. Allergies As of Date: 02/03/2024 Noted Allergy Reaction ERYTHROCIN (ERYTHROMYCIN BASE) 04/15/2007 10 - Anaphylaxis Date Reviewed: 12/10/2023 Reviewed by: Tyler Jacobs MD - Fully Assessed Reason for Visit: Received Outside Medical Records [[id number]] Cmt: [facility] Prescriptions as of 02/03/2024 - varenicline tartrate (CHANTIX ORAL) Take by mouth. - sertraline (ZOLOFT) 25 mg tablet Take 1 tablet by mouth every afternoon. - nebivolol (BYSTOLIC) 10 mg tablet TAKE 1 TABLET BY MOUTH EVERY DAY - lisinopril (ZESTRIL) 40 mg tablet Take 1 tablet by mouth once daily. - atorvastatin (LIPITOR) 80 mg tablet Take 1 tablet by mouth daily at bedtime. - amLODIPine (NORVASC) 10 mg tablet Take 1 tablet by mouth once daily. - ezetimibe (ZETIA) 10 mg tablet Take 1 tablet by mouth once daily. - varenicline (CHANTIX STARTING MONTH BOX) 0.5 mg (11)- 1 mg (42) tablet Take 0.5 mg by mouth once daily on Days 1 through 3, THEN 0.5 mg twice daily on Days 4 through 7, THEN 1 mg twice daily on Day 8 and thereafter - ticagrelor (BRILINTA) 90 mg tablet Take 1 tablet by mouth twice daily. - aspirin 81 mg chewable tablet Take 1 tablet by mouth once daily. - nitroglycerin sublingual (NITROQUICK) 0.4 mg SL tablet Dissolve 1 tablet under the tongue every 5 minutes as needed for chest pain. Problem List As Of Date 02/03/2024 Noted Resolved Elevated blood pressure reading without diagnos*12/11/2007 03/05/2022 Tobacco use disorder [F17.200] 12/11/2007 03/05/2022 Anxiety state, unspecified [F41.1] 12/29/2007 03/05/2022 TIA (transient ischemic attack) [G45.9] 09/11/2015 03/05/2022 HTN (hypertension) [I10] 09/11/2015 03/05/2022 Hyperlipidemia [E78.5] 09/11/2015 03/05/2022 ACS (acute coronary syndrome) (HCC) [I24.9] 03/01/2022 03/05/2022 Coronary artery disease involving [place]*04/03/2022 Primary hypertension [I10] 04/03/2022 Other hyperlipidemia [E78.49] 04/03/2022 Iodine-deficiency related diffuse (endemic) goi*04/07/2018 Hypertension [I10] 05/30/2023 Encounter Status:Closed by LYNN CUELLO on 02/03/24 [facility] CNOVon 12-10-2023 CNOV Office Visit (CARDWW) CARLOTTA PETERSEN V ([id number]) 1975 M Date Time Provider Department 12/10/23 9:40 AM TYLER JACOBS CARDWW During your visit today, we recorded the following information about you: Pulse Blood pressure Weight Height 75/minute 144/87 103 kg 1.854 m Tyler Jacobs MD 12/10/2023 10:01 AM Signed Chief Complaint: Patient presents with: Follow Up: Coronary Artery Disease History of Present Illness: Carlotta Petersen is a 47 year old male who presents for a follow up on coronary artery disease. Patient has a history of essential hypertension dyslipidemia tobacco abuse. He was admitted to the hospital in February 2022 with non-STEMI. Troponin peaked at 1152. He underwent PCI of circumflex artery. He was started on dual antiplatelet therapy beta-blockers CATIA inhibitor's and statins. He had an initial post hospital discharge follow-up visit with the nurse practitioner at [facility] but as he lives closer to the [facility] he wanted to transfer his care over [...] erectile dysfunction for the last 1 year. 12/10/2023: Patient said he forgot to take his medications for 4 days back in September when noticed he had a few episodes of sharp stabbing type of discomfort in the left lateral chest wall lasting only for few seconds. When he came back home and started taking his medications again his symptoms did not recur. Patient otherwise has done well since his last office visit. He denies any chest pain or shortness of breath on exertion. Denies any palpitations lightheadedness syncope orthopnea PND or leg edema. PAST MEDICAL HISTORY Diagnosis Date Depression Generalized anxiety disorder Hypertension Irregular heart beat Other hyperlipidemia TIA (transient ischemic attack) PAST SURGICAL HISTORY Procedure Laterality Date TONSILLECTOMY HX FAMILY HISTORY Problem Relation Age of Onset Stroke Mother Coronary Artery Disease Father Social History Tobacco Use Smoking status: Former Packs/day: 1.00 Years: 17.00 Additional pack years: 0.00 Total pack years: 17.00 Types: Cigarettes Smokeless tobacco: Never Vaping Use Vaping Use: Some days Substance Use Topics Alcohol use: No Drug use: No Current Outpatient Medications Medication Sig varenicline tartrate (CHANTIX ORAL) Take by mouth. sertraline (ZOLOFT) 25 mg tablet Take 1 tablet by mouth every afternoon. nebivolol (BYSTOLIC) 10 mg tablet TAKE 1 TABLET BY MOUTH EVERY DAY lisinopril (ZESTRIL) 40 mg tablet Take 1 tablet by mouth once daily. atorvastatin (LIPITOR) 80 mg tablet Take 1 tablet by mouth daily at bedtime. amLODIPine (NORVASC) 10 mg tablet Take 1 tablet by mouth once daily. ezetimibe (ZETIA) 10 mg tablet Take 1 tablet by mouth once daily. aspirin 81 mg chewable tablet Take 1 tablet by mouth once daily. nitroglycerin sublingual (NITROQUICK) 0.4 mg SL tablet Dissolve 1 tablet under the tongue every 5 minutes as needed for chest pain. varenicline (CHANTIX STARTING MONTH BOX) 0.5 mg (11)- 1 mg (42) tablet Take 0.5 mg by mouth once daily on Days 1 through 3, THEN 0.5 mg twice daily on Days 4 through 7, THEN 1 mg twice daily on Day 8 and thereafter (Patient not taking: Reported on 07/10/2022) ticagrelor (BRILINTA) 90 mg tablet Take 1 tablet by mouth twice daily. No current facility-administere d medications for this visit. ALLERGIES Allergen Reactions [...] or back pain Neurologic: Negative history of dizziness/lightheade dness, vertigo, numbness/tingling of hands or feet Hematologic: Negative for easy bruising or easy (more content not included)... Normal [facility] ECG COMPLETEon 12-10-2023 Atrial Rate 68 BPM [facility] Calculated P [place] 31 degrees [facility] Calculated [place] 43 degrees [facility] Calculated [place] 36 degrees [facility] P-R Interval 170 ms [facility] QRS Duration 108 ms [facility] QT Interval 400 ms [facility] QTC Calculation (Bazett) 425 ms [facility] Ventricular Rate 68 BPM [facility] [id number] 12-10-2023 ECG01 Ventricular Rate : 68 BPM Atrial Rate : 68 BPM P-R Interval : 170 ms QRS Duration : 108 ms Q-T Interval : 400 ms QTC Calculation(Bazett) : 425 ms Calculated [place] : 31 degrees Calculated [place] : 43 degrees Calculated [place] : 36 degrees NORMAL SINUS RHYTHM NORMAL ECG WHEN COMPARED WITH ECG OF 10-JUL-2022 07:56, NO SIGNIFICANT CHANGE WAS FOUND Confirmed by MD JACOBS VINAY ([id number]) on 12/10/2023 4:40:27 PM NAME : CARLOTTA PETERSEN PID : [id number] : 1975 Gender : Male Race : ORD : Procedure Date : Dec 10 2023 09:38:54 Edit Date : Dec 10 2023 16:40:28 Diagnosis: NORMAL SINUS RHYTHM NORMAL ECG WHEN COMPARED WITH ECG OF 10-JUL-2022 07:56, NO SIGNIFICANT CHANGE WAS FOUND Confirmed by MD JACOBS VINAY ([id number]) on 12/10/2023 4:40:27 PM Test Reason : Location : 626 : [facility] Overread By : MD JACOBS VINAY Edited By : MD JACOBS VINAY Referred By : , Acquired by : Lizbeth Hogan, [place] [facility] Absolute lymphocyte countOrd ered By: Roger Lomeli on 11-20-2023 Lymphocytes Auto (Unsp spec) [#/Vol] 3.75 10*3/uL 0.83-4.51 [facility] Automated lymphocyte count a s percentage of total leukocytesOrdered By: Roger Lomeli on 11-20-2023 Lymphocytes/100 WBC Auto (Unsp spec) 44.1 % 19-41 [facility] Basophil percentageOrdered B y: Roger Lomeli on 11-20-2023 Basophils/100 WBC (Bld) 1.1 % 0-1 [facility] Bilirubin [Mass/Vol] 0.50 mg/dL 0.20-1.00 [facility] Comment on above: For patients on eltr ombopag therapy, use of Dimension [place] TBIL is not recommended. Chloride [Moles/Vol] 111 mmol/L 98-107 [facility] Cholesterol [Mass/Vol] 129 mg/dL <200 [facility] Comment on above: <200 mg/dL Desirable 200-240 mg/dL Borderline >240 mg/dL High Risk Eosinophils/100 WBC (Bld) 3.2 % 0-5 [facility] Glucose [Mass/Vol] 101 mg/dL 74-106 [facility] Comment on above: Fasting Glucose resu lt from 100 to 125 mg/dL suggests IMPAIRED HOMEOSTASIS per A.D.A. criteria. Hemoglobin (Bld) [Mass/Vol] 14.7 g/dL 13.0-16.5 [facility] Monocytes/100 WBC (Bld) 6.6 % 0-10 [facility] Neutrophils (Bld) [#/Vol] 3.8 10*3/uL 2.0-7.7 [facility] Neutrophils/100 WBC (Bld) 44.8 % 47-70 [facility] Potassium [Moles/Vol] 4.2 mmol/L 3.5-5.1 [facility] Protein [Mass/Vol] 6.9 g/dL 6.4-8.2 [facility] Sodium [Moles/Vol] 140 mmol/L 136-145 [facility] Testosterone [Mass/Vol] 373.69 ng/dL [facility] Comment on above: CENTRAL 90% REFERENC E RANGES MALE AGE <50 197.44 - 669.58 ng/dL MALE AGE > or = 50 187.72 - 684.19 ng/dL FEMALE AGE <50 8.38 - 35.01 ng/dL FEMALE AGE > or = 50 <7.00 - 35.92 ng/dL Effective as of 05/22/21 Triglyceride [Mass/Vol] 172 mg/dL <199 [facility] Comment on above: The drugs N-Acetylcy steine and Metamizole may falsely depress this assay.Serum Triglycerides Reference Interval Normal <150 mg/dL Borderline high 150 - 199 mg/dL High 200 - 499 mg/dL Very High > or = 500 mg/dL WBC (Bld) [#/Vol] 8.5 10*3/uL 4.4-11.0 [facility] CBC W/Diff, Automatedon 10-28 Absolute Lymph 3.75 X10 3/uL Normal 0.83-4.51 [facility] Comment on above: Performed By: #### L 500.4050, L500.4100, L501.9520, L100.0100, L509.3000 #### [facility] [address] [place], [address] Absolute Neut 3.8 X10 3/uL Normal 2.0-7.7 [facility] Comment on above: Performed By: #### L 500.4050, L500.4100, L501.9520, L100.0100, L509.3000 #### [facility] [address] [place], [address] Basophils/100 WBC (Bld) 1.1 % High 0-1 [facility] Comment on above: Performed By: #### L 500.4050, L500.4100, L501.9520, L100.0100, L509.3000 #### [facility] [address] [place], [address] Eosinophils/100 WBC (Bld) 3.2 % Normal 0-5 [facility] Comment on above: Performed By: #### L 500.4050, L500.4100, L501.9520, L100.0100, L509.3000 #### [facility] [address] [place], [address] Erythrocyte distribution width (RBC) [Ratio] 12.6 % Normal 11.6-14.6 [facility] Comment on above: Performed By: #### L 500.4050, L500.4100, L501.9520, L100.0100, L509.3000 #### [facility] [address] [place], [address] Hematocrit (Bld) [Volume fraction] 43.3 % Normal 40-54 [facility] Comment on above: Performed By: #### L 500.4050, L500.4100, L501.9520, L100.0100, L509.3000 #### [facility] [address] [place], [address] Hemoglobin (Bld) [Mass/Vol] 14.7 g/dL Normal 13.0-16.5 [facility] Comment on above: Performed By: #### L 500.4050, L500.4100, L501.9520, L100.0100, L509.3000 #### [facility] [address] [place], [address] IG% 0.200 Normal 0.0-0.9 [facility] Comment on above: Result Comment: IG% - Immature Granulocytes (promyelocytes, myelocytes and metamyelocytes) > 1% indicates that a LEFT SHIFT is Present. Performed By: #### L 500.4050, L500.4100, L501.9520, L100.0100, L509.3000 #### [facility] [address] [place], [address] Lymphocytes/100 WBC (Bld) 44.1 % High 19-41 [facility] Comment on above: Performed By: #### L 500.4050, L500.4100, L501.9520, L100.0100, L509.3000 #### [facility] [address] [place], [address] MCH (RBC) [Entitic mass] 31.5 pg Normal 27.0-32.0 [facility] Comment on above: Performed By: #### L 500.4050, L500.4100, L501.9520, L100.0100, L509.3000 #### [facility] [address] [place], [address] MCHC (RBC) [Mass/Vol] 33.9 g/dL Normal 32-36 [facility] Comment on above: Performed By: #### L 500.4050, L500.4100, L501.9520, L100.0100, L509.3000 #### [facility] [address] [place], [address] MCV (RBC) [Entitic vol] 92.7 fL Normal 80-94 [facility] Comment on above: Performed By: #### L 500.4050, L500.4100, L501.9520, L100.0100, L509.3000 #### [facility] [address] [place], [address] Monocytes/100 WBC (Bld) 6.6 % Normal 0-10 [facility] Comment on above: Performed By: #### L 500.4050, L500.4100, L501.9520, L100.0100, L509.3000 #### [facility] [address] [place], [address] Neutrophils/100 WBC (Bld) 44.8 % Low 47-70 [facility] Comment on above: Performed By: #### L 500.4050, L500.4100, L501.9520, L100.0100, L509.3000 #### [facility] [address] [place], [address] Nucleated RBC (Bld) [#/Vol] 0 10*3/uL Normal 0-5 [facility] Comment on above: Performed By: #### L 500.4050, L500.4100, L501.9520, L100.0100, L509.3000 #### [facility] [address] [place], [address] Platelet mean volume (Bld) [Entitic vol] 9.8 fL Normal 6.2-12.0 [facility] Comment on above: Performed By: #### L 500.4050, L500.4100, L501.9520, L100.0100, L509.3000 #### [facility] [address] [place], [address] Platelets (Bld) [#/Vol] 305 10*3/uL Normal 150-450 [facility] Comment on above: Performed By: #### L 500.4050, L500.4100, L501.9520, L100.0100, L509.3000 #### [facility] [address] [place], [address] RBC (Bld) [#/Vol] 4.67 10*6/uL Normal 4.6-6.2 [facility] Comment on above: Performed By: #### L 500.4050, L500.4100, L501.9520, L100.0100, L509.3000 #### [facility] [address] [place], [address] RDW SD 42.8 fl Normal 35.1-43.9 [facility] Comment on above: Performed By: #### L 500.4050, L500.4100, L501.9520, L100.0100, L509.3000 #### [facility] [address] [place], [address] WBC (Bld) [#/Vol] 8.5 10*3/uL Normal 4.4-11.0 [facility] Comment on above: Performed By: #### L 500.4050, L500.4100, L501.9520, L100.0100, L509.3000 #### [facility] [address] [place], [address] Comprehensive Metabolic Prof ilon 11-20-2023 Albumin [Mass/Vol] 3.6 g/dL Normal 3.2-5.0 [facility] Comment on above: Performed By: #### L 500.4050, L500.4100, L501.9520, L100.0100, L509.3000 #### [facility] [address] [place], [address] Albumin/Globulin [Mass ratio] 1.1 {ratio} Normal 0.9-2.4 [facility] Comment on above: Performed By: #### L 500.4050, L500.4100, L501.9520, L100.0100, L509.3000 #### [facility] [address] [place], [address] ALK P 105 U/L Normal 45-117 [facility] Comment on above: Performed By: #### L 500.4050, L500.4100, L501.9520, L100.0100, L509.3000 #### [facility] [address] [place], [address] ALT [Catalytic activity/Vol] 38 U/L Normal 16-61 [facility] Comment on above: Performed By: #### L 500.4050, L500.4100, L501.9520, L100.0100, L509.3000 #### [facility] [address] [place], [address] AST [Catalytic activity/Vol] 15 U/L Normal 15-37 [facility] Comment on above: Performed By: #### L 500.4050, L500.4100, L501.9520, L100.0100, L509.3000 #### [facility] [address] [place], [address] Bilirubin [Mass/Vol] 0.50 mg/dL Normal 0.20-1.00 [facility] Comment on above: Result Comment: For patients on eltrombopag therapy, use of Dimension [place] TBIL is not recommended. Performed By: #### L 500.4050, L500.4100, L501.9520, L100.0100, L509.3000 #### [facility] [address] [place], [address] BUN/CRE 14.0 RATIO Normal 10-20 [facility] Comment on above: Performed By: #### L 500.4050, L500.4100, L501.9520, L100.0100, L509.3000 #### [facility] [address] [place], [address] CA,Total 9.2 mg/dL Normal 8.5-10.1 [facility] Comment on above: Performed By: #### L 500.4050, L500.4100, L501.9520, L100.0100, L509.3000 #### [facility] [address] [place], [address] Chloride [Moles/Vol] 111 mmol/L High 98-107 [facility] Comment on above: Performed By: #### L 500.4050, L500.4100, L501.9520, L100.0100, L509.3000 #### [facility] [address] [place], [address] CO2 [Moles/Vol] 27.0 mmol/L Normal 21.0-32.0 [facility] Comment on above: Performed By: #### L 500.4050, L500.4100, L501.9520, L100.0100, L509.3000 #### [facility] [address] [place], [address] Creatinine [Mass/Vol] 0.86 mg/dL Normal 0.70-1.30 [facility] Comment on above: Result Comment: The validity of the calculated GFR GFRAA in patients over 70 years has not been determined. Clinical correlation is essential. Performed By: #### L 500.4050, L500.4100, L501.9520, L100.0100, L509.3000 #### [facility] [address] [place], [address] EST GFR - AA 122 mL/min Normal >60 [facility] Comment on above: Result Comment: Afri can Fijian GFR Calc Performed By: #### L 500.4050, L500.4100, L501.9520, L100.0100, L509.3000 #### [facility] [address] [place], [address] GAP 2 Low 5-15 [facility] Comment on above: Performed By: #### L 500.4050, L500.4100, L501.9520, L100.0100, L509.3000 #### [facility] [address] [place], [address] GFR/1.73 sq M.predicted among non-blacks MDRD (S/P/Bld) [Vol rate/Area] 100 mL/min/{1.73_m2} Normal >60 [facility] Comment on above: Result Comment: Non- GFR Calc Performed By: #### L 500.4050, L500.4100, L501.9520, L100.0100, L509.3000 #### [facility] [address] [place], [address] Globulin (S) [Mass/Vol] 3.3 g/dL Normal 2.2-4.2 [facility] Comment on above: Performed By: #### L 500.4050, L500.4100, L501.9520, L100.0100, L509.3000 #### [facility] [address] [place], [address] Glucose [Mass/Vol] 101 mg/dL Normal 74-106 [facility] Comment on above: Result Comment: Fast ing Glucose result from 100 to 125 mg/dL suggests IMPAIRED HOMEOSTASIS per A.D.A. criteria. Performed By: #### L 500.4050, L500.4100, L501.9520, L100.0100, L509.3000 #### [facility] [address] [place], [address] Potassium [Moles/Vol] 4.2 mmol/L Normal 3.5-5.1 [facility] Comment on above: Performed By: #### L 500.4050, L500.4100, L501.9520, L100.0100, L509.3000 #### [facility] [address] [place], [address] Sodium [Moles/Vol] 140 mmol/L Normal 136-145 [facility] Comment on above: Performed By: #### L 500.4050, L500.4100, L501.9520, L100.0100, L509.3000 #### [facility] [address] [place], [address] T PROT 6.9 g/dL Normal 6.4-8.2 [facility] Comment on above: Performed By: #### L 500.4050, L500.4100, L501.9520, L100.0100, L509.3000 #### [facility] [address] [place], [address] Urea nitrogen [Mass/Vol] 12 mg/dL Normal 7-18 [facility] Comment on above: Performed By: #### L 500.4050, L500.4100, L501.9520, L100.0100, L509.3000 #### [facility] [address] [place], [address] Determination of erythrocyte mean corpuscular volume (MCV)Ordered By: Roger Lomeli on 11-20-2023 MCV (RBC) [Entitic vol] 92.7 fL 80-94 [facility] Erythrocyte distribution wid th ratioOrdered By: Roger Lomeli on 11-20-2023 Erythrocyte distribution width (RBC) [Ratio] 12.6 % 11.6-14.6 [facility] Erythrocyte distribution wid th standard deviationOrdered By: Roger Lomeli on 11-20-2023 Erythrocyte distribution width (RBC) [Entitic vol] 42.8 fL 35.1-43.9 [facility] Hematocrit Auto (Bld) [Volum e fraction]Ordered By: Roger Lomeli on 11-20-2023 Hematocrit (Bld) [Volume fraction] 43.3 % 40-54 [facility] High density lipoprotein (HD L) measurementOrdered By: Roger Lomeli on 11-20-2023 Cholesterol in HDL (Body fld) [Mass/Vol] 40 mg/dL >40 [facility] Comment on above: The drugs N-Acetylcy steine and Metamizole may falsely depress this assay. Reference Range HDL <40 mg/dL Low HDL Cholesterol HDL >or= 60 mg/dL High HDL Cholesterol Immature granulocytes/100 WB C Auto (Bld)Ordered By: Roger Lomeli on 11-20-2023 Immature granulocytes/100 WBC (Bld) 0.200 % 0.0-0.9 [facility] Comment on above: IG% - Immature Granu locytes (promyelocytes, myelocytes and metamyelocytes) > 1% indicates that a LEFT SHIFT is Present. Laboratory - Chemistry and C hemistry - challengeOrdered By: Roger Lomeli on 11-20-2023 Albumin/Globulin [Mass ratio] 1.1 {ratio} 0.9-2.4 [facility] ALP [Catalytic activity/Vol] 105 U/L 45-117 [facility] ALT [Catalytic activity/Vol] 38 U/L 16-61 [facility] CO2 [Moles/Vol] 27.0 mmol/L 21.0-32.0 [facility] Globulin (S) [Mass/Vol] 3.3 g/dL 2.2-4.2 [facility] Urea nitrogen/Creatinine [Mass ratio] 14.0 mg/mg 10-20 [facility] - Hematology and Cell countsOrdered By: Roger Lomeli on 11-20-2023 MCH (RBC) [Entitic mass] 31.5 pg 27.0-32.0 [facility] MCHC (RBC) [Mass/Vol] 33.9 g/dL 32-36 [facility] Nucleated RBC/100 WBC (Bld) [Ratio] 0 % 0-5 [facility] Platelets (Bld) [#/Vol] 305 10*3/uL 150-450 [facility] Lipid Profileon 11-20-2023 Cholesterol [Mass/Vol] 129 mg/dL Normal 200 [facility] Comment on above: Result Comment: <200 mg/dL Desirable 200-240 mg/dL Borderline >240 mg/dL High Risk Performed By: #### L 500.4050, L500.4100, L501.9520, L100.0100, L509.3000 #### [facility] [address] [place], [address] Cholesterol in HDL [Mass/Vol] 40 mg/dL Normal [facility] Comment on above: Result Comment: The drugs N-Acetylcysteine and Metamizole may falsely depress this assay. Reference Range HDL <40 mg/dL Low HDL Cholesterol HDL >or= 60 mg/dL High HDL Cholesterol Performed By: #### L 500.4050, L500.4100, L501.9520, L100.0100, L509.3000 #### [facility] [address] [place], [address] Cholesterol in LDL [Mass/Vol] 55 mg/dL Normal 0-130 [facility] Comment on above: Performed By: #### L 500.4050, L500.4100, L501.9520, L100.0100, L509.3000 #### [facility] [address] [place], [address] Cholesterol in VLDL [Mass/Vol] 34 mg/dL Normal 5-40 [facility] Comment on above: Performed By: #### L 500.4050, L500.4100, L501.9520, L100.0100, L509.3000 #### [facility] [address] [place], [address] Triglyceride [Mass/Vol] 172 mg/dL Normal [facility] Comment on above: Result Comment: The drugs N-Acetylcysteine and Metamizole may falsely depress this assay. Serum Triglycerides Reference Interval Normal <150 mg/dL Borderline high 150 - 199 mg/dL High 200 - 499 mg/dL Very High > or = 500 mg/dL Performed By: #### L 500.4050, L500.4100, L501.9520, L100.0100, L509.3000 #### [facility] [address] [place], [address] Low density lipoprotein (LDL ) cholesterol measurementOrdered By: Roger Lomeli on 11-20-2023 Cholesterol in LDL (Body fld) [Moles/Vol] 55 mg/dL 0-130 [facility] No Panel InformationOrdered By: Roger Lomeli on 11-20-2023 Estimated GFR (MDRD) Amer 122 mL/min >60 [facility] Comment on above: GFR Calc Estimated GFR (MDRD) Non-Af Amer 100 mL/min >60 [facility] Comment on above: Non- GFR Calc Platelet mean volume Evangelista-Ec ker (Bld) [Entitic vol]Ordered By: Roger Lomeli on 11-20-2023 Platelet mean volume (Bld) [Entitic vol] 9.8 fL 6.2-12.0 [facility] RBC Auto (Bld) [#/Vol]Ordere d By: Roger Lomeli on 11-20-2023 RBC (Bld) [#/Vol] 4.67 10*6/uL 4.6-6.2 [facility] Serum or plasma calcium leslie urement (mass/volume)Ordered By: Roger Lomeli on 11-20-2023 Calcium [Mass/Vol] 9.2 mg/dL 8.5-10.1 [facility] Serum or plasma creatinine m easurement (mass/volume)Ordered By: Roger Lomeli on 11-20-2023 Creatinine [Mass/Vol] 0.86 mg/dL 0.70-1.30 [facility] Comment on above: The validity of the calculated GFR & GFRAA in patients over 70 years has not been determined. Clinical correlation is essential. Serum or plasma thyroid stim ulating hormone (TSH) measurement (units/volume)Ordered By: Roger Lomeli on 11-20-2023 TSH Qn 0.69 uIU/mL 0.358-3.74 [facility] Serum or plasma urea nitroge n measurement (mass/volume)Ordered By: Roger Lomeli on 11-20-2023 Urea nitrogen [Mass/Vol] 12 mg/dL 7-18 [facility] Testosterone, Serum Totalon 11-20-2023 Testosterone [Mass/Vol] 373.69 ng/dL Normal [facility] Comment on above: Result Comment: CENT RAL 90% REFERENCE RANGES MALE AGE <50 197.44 - 669.58 ng/dL MALE AGE > or = 50 187.72 - 684.19 ng/dL FEMALE AGE <50 8.38 - 35.01 ng/dL FEMALE AGE > or = 50 <7.00 - 35.92 ng/dL Effective as of 05/22/21 Performed By: #### L 500.4050, L500.4100, L501.9520, L100.0100, L509.3000 #### [facility] [address] [place], [place], [id number] Thin prep Papanicolaou smear with manual screeningOrdered By: Roger Lomeli on 11-20-2023 Thin prep Papanicolaou smear with manual screening 3.6 g/dL 3.2-5.0 [facility] Thin prep Papanicolaou smear with manual screening 15 U/L 15-37 [facility] Thin prep Papanicolaou smear with manual screening 2 5-15 [facility] Thyroid Stim Hormone (TSH)on 11-20-2023 TSH 0.69 uIU/mL Normal 0.358-3.74 [facility] Comment on above: Performed By: #### L 500.4050, L500.4100, L501.9520, L100.0100, L509.3000 #### [facility] [place], [address] Very low density lipoprotein (VLDL) cholesterol measurementOrdered By: Roger Lomeli on 11-20-2023 Cholesterol in VLDL Calc [Moles/Vol] 34 mg/dL 5-40 [facility] CNOVon 06-03-2023 CNOV Office Visit (AGCARDHWW) CARLOTTA PETERSEN V ([id number]) 1975 M Date Time Provider Department 06/03/23 9:00 AM TYLER JACOBS AGCARDHWW During your visit today, we recorded the following information about you: Pulse Blood pressure Weight Height 80/minute 118/85 101.2 kg 1.854 m Zully Laguerre MA 06/03/2023 8:54 AM Signed Patient has no cardiac complaints today. Tyler Copeland CMA, MD 06/03/2023 11:07 AM Signed Chief Complaint: Patient presents with: Cardiology Follow Up : HTN History of Present Illness: Carlotta Peetrsen is a 47 year old male who presents for a follow up on coronary artery disease. Patient has a history of essential hypertension dyslipidemia tobacco abuse. He was admitted to the hospital in February 2022 with non-STEMI. Troponin peaked at 1152. He underwent PCI of circumflex artery. He was started on dual antiplatelet therapy beta-blockers CATIA inhibitor's and statins. He had an initial post hospital discharge follow-up visit with the nurse practitioner at [facility] but as he lives closer to the [facility] he wanted to transfer his care over [...] not taking: Reported on 07/10/2022) No current facility-administere d medications for this visit. ALLERGIES Allergen Reactions [...] or back pain Neurologic: Negative history of dizziness/lightheade dness, vertigo, numbness/tingling of hands or feet Hematologic: [...] no carotid bruit no palpable thyromegaly Heart S (more content not included)... Normal [facility] Kathy 04-04-2023 [facility] Telephone (AGCARDPOB) CARLOTTA PETERSEN V ([id number]) 1975 M Date Time Provider Department 04/04/23 TYLER JACOBS DDVTECH During your visit today, we recorded the following information about you: Robinhernanmauro Hendrix 04/04/2023 2:47 PM Signed I called pt LVM to call us to schedule Overdue f/u due with Dr. Jacobs. Mitra Hendrix April 04, 2023 2:47 PM Allergies As of Date: 04/04/2023 Noted Allergy Reaction ERYTHROCIN (ERYTHROMYCIN BASE) 04/15/2007 10 - Anaphylaxis Date Reviewed: 07/10/2022 Reviewed by: Tyler Jacobs MD - Fully Assessed Reason for Visit: Appointment [186] Cmt: Overdue f/u appt Prescriptions as of 04/04/2023 - ezetimibe (ZETIA) 10 mg tablet TAKE 1 TABLET BY MOUTH EVERY DAY - amLODIPine (NORVASC) 10 mg tablet Take 1 tablet by mouth once daily. - atorvastatin (LIPITOR) 80 mg tablet Take 1 tablet by mouth daily at bedtime. - carvedilol (COREG) 25 mg tablet Take 1 tablet by mouth twice daily. - varenicline (CHANTIX STARTING MONTH BOX) 0.5 mg (11)- 1 mg (42) tablet Take 0.5 mg by mouth once daily on Days 1 through 3, THEN 0.5 mg twice daily on Days 4 through 7, THEN 1 mg twice daily on Day 8 and thereafter - lisinopril (ZESTRIL, PRINIVIL) 40 mg tablet Take 1 tablet by mouth once daily. - ticagrelor (BRILINTA) 90 mg tablet Take 1 tablet by mouth twice daily. - aspirin 81 mg chewable tablet Take 1 tablet by mouth once daily. - nitroglycerin sublingual (NITROQUICK) 0.4 mg SL tablet Dissolve 1 tablet under the tongue every 5 minutes as needed for chest pain. 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 Thanks Vianca Allergies As of Date: 01/28/2023 Noted Allergy Reaction ERYTHROCIN (ERYTHROMYCIN BASE) 04/15/2007 10 - Anaphylaxis Date Reviewed: 07/10/2022 Reviewed by: Tyler Jacobs MD - Fully Assessed Reason for Visit: Appointment [186] Prescriptions as of 01/28/2023 - ezetimibe (ZETIA) 10 mg tablet TAKE 1 TABLET BY MOUTH EVERY DAY - amLODIPine (NORVASC) 10 mg tablet Take 1 tablet by mouth once daily. - atorvastatin (LIPITOR) 80 mg tablet Take 1 tablet by mouth daily at bedtime. - carvedilol (COREG) 25 mg tablet Take 1 tablet by mouth twice daily. - varenicline (CHANTIX STARTING MONTH BOX) 0.5 mg (11)- 1 mg (42) tablet Take 0.5 mg by mouth once daily on Days 1 through 3, THEN 0.5 mg twice daily on Days 4 through 7, THEN 1 mg twice daily on Day 8 and thereafter - lisinopril (ZESTRIL, PRINIVIL) 40 mg tablet Take 1 tablet by mouth once daily. - ticagrelor (BRILINTA) 90 mg tablet Take 1 tablet by mouth twice daily. - aspirin 81 mg chewable tablet Take 1 tablet by mouth once daily. - nitroglycerin sublingual (NITROQUICK) 0.4 mg SL tablet Dissolve 1 tablet under the tongue every 5 minutes as needed for chest pain. 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 Patient instructed to follow up in 6 months. Please call patient with over due appointment. Dominique Souza LPN Allergies As of Date: 01/27/2023 Noted Allergy Reaction ERYTHROCIN (ERYTHROMYCIN BASE) 04/15/2007 10 - Anaphylaxis Date Reviewed: 07/10/2022 Reviewed by: Tyler Jacobs MD - Fully Assessed Reason for Visit: Appointment [186] Prescriptions as of 01/27/2023 - ezetimibe (ZETIA) 10 mg tablet Take 1 tablet by mouth once daily. - amLODIPine (NORVASC) 10 mg tablet Take 1 tablet by mouth once daily. - atorvastatin (LIPITOR) 80 mg tablet Take 1 tablet by mouth daily at bedtime. - carvedilol (COREG) 25 mg tablet Take 1 tablet by mouth twice daily. - varenicline (CHANTIX STARTING MONTH BOX) 0.5 mg (11)- 1 mg (42) tablet Take 0.5 mg by mouth once daily on Days 1 through 3, THEN 0.5 mg twice daily on Days 4 through 7, THEN 1 mg twice daily on Day 8 and thereafter - lisinopril (ZESTRIL, PRINIVIL) 40 mg tablet Take 1 tablet by mouth once daily. - ticagrelor (BRILINTA) 90 mg tablet Take 1 tablet by mouth twice daily. - aspirin 81 mg chewable tablet Take 1 tablet by mouth once daily. - nitroglycerin sublingual (NITROQUICK) 0.4 mg SL tablet Dissolve 1 tablet under the tongue every 5 minutes as needed for chest pain. 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 Encounter Status:Closed by DOMINIQUE SOUZA on 01/27/23 [facility] ED Adult Data - [facility] 10-18 ED Adult Data - Text ED Adult Data Entered On: 10/18/2022 8:01 EST Performed On: 10/18/2022 8:00 EST by Estrella Patel RN Arrival Information Referral Source ED : [facility] Mode of Arrival : Car / Walk-In Airway : Normal Breathing : Normal Circulation : Normal Estrella Patel RN - 10/18/2022 8:00 EST Screening-General Meds Triage : Aspirin, Other: Brilinta Accept Blood Products if Necessary : Yes Immunizations Current : Yes Last Tetanus : Less than 5 years Status : N/A Preferred Verbal : Kittitian Preferred Written : Kitt[place] Estrella Patel RN - 10/18/2022 8:00 EST Depression Screening Patient able to verbalize? : Yes Feeling Down, Depressed, Hopeless : Not at all Little Interest - Pleasure in Activities : Not at all Initial Depression Screen Score : 0 Depression Screening Score 0 : No IP Pt being evaluated or treated for BH conditions : No Estrella Patel RN - 10/18/2022 8:00 EST Screening-Safety Abuse/Violence Concerns? : Patient denies Does the patient have a medically restricted extremity? : No Estrella Patel RN - 10/18/2022 8:00 EST Problem List Problem List obtained from : Patient Estrella Patel RN - 10/18/2022 8:00 EST (As Of: 10/18/2022 08:01:17 EST) Problems(Active) Hyperlipidemia (SNOMED CT :64119756 ) Name of Problem: Hyperlipidemia ; Recorder: Estrella Patel RN; Confirmation: Confirmed ; Classification: Medical ; Code: [id number] ; Contributor System: [employer] ; Last Updated: 10/18/2022 08:00 EST ; Life Cycle Date: 10/18/2022 ; Life Cycle Status: Active ; Vocabulary: SNOMED CT Hypertension (SNOMED CT :7554357740 ) Name of Problem: Hypertension ; Recorder: Estrella Patel RN; Confirmation: Confirmed ; Classification: Medical ; Code: [id number] ; Contributor System: [employer] ; Last Updated: 10/18/2022 08:00 EST ; Life Cycle Date: 10/18/2022 ; Life Cycle Status: Active ; Vocabulary: SNOMED CT [place] (myocardial infarction) (SNOMED CT :26766882 ) Name of Problem: [place] (myocardial infarction) ; Recorder: Estrella Patel RN; Confirmation: Confirmed ; Classification: Medical ; Code: [id number] ; Contributor System: [employer] ; Last Updated: 10/18/2022 08:01 EST ; Life Cycle Date: 10/18/2022 ; Life Cycle Status: Active ; Vocabulary: SNOMED CT Diagnoses(Active) Fall Date: 10/18/2022 ; Diagnosis Type: Reason For Visit ; Confirmation: Confirmed ; Clinical Dx: Fall ; Classification: Medical ; Clinical Service: Non-Specified ; Code: PNED ; Probability: 0 ; Diagnosis Code: [id number] Leg pain-swelling Date: 10/18/2022 ; Diagnosis Type: Reason For Visit ; Confirmation: Confirmed ; Clinical Dx: Leg pain-swelling ; Classification: Medical ; Clinical Service: Non-Specified ; Code: PNED ; Probability: 0 ; Diagnosis Code: [id number] Traumatic hematoma of left lower leg Date: 10/18/2022 ; Diagnosis Type: Discharge ; Confirmation: Confirmed ; Clinical Dx: Traumatic hematoma of left lower leg ; Classification: Medical ; Clinical Service: Non-Specified ; Code: ICD-10-CM ; Probability: 0 ; Diagnosis Code: S80.12XA Procedure History ED Devices Present on Arrival To ED : None Urinary Catheter Present on Admit to ED : No Estrella Patel RN - 10/18/2022 8:00 EST - Procedure History (As Of: 10/18/2022 08:01:17 EST) Social History Does pt have any alcohol,drugs or tobacco : No Do you consume Alcohol : No Social History obtained from : Patient Estrella Patel RN - 10/18/2022 8:00 EST Social History (As Of: 10/18/2022 08:01:17 EST) Infection Screening Last Physical Overnight Location of the Patient : Personal Residence Travel outside [place] within past 30 days : No Exposure AND/OR close contact with a person under investigation or laboratory-confirmed COVID-19 individual within 14 days of symptom onset AND/OR any of the following: : No Do you live/work in a high risk situation (congregated living, hemodialysis, infusion clinic, detention, assisted living, fdc, homeless residential, etc.)? : No Estrella Patel RN - 10/18/2022 8:00 EST Normal [facility] ED Discharge Educationon ED Discharge Education Cryotherapy What is cryotherapy? Cryotherapy, or cold therapy, is a treatment that uses cold temperatures to treat an injury or medical condition. It includes using cold packs or ice packs to reduce pain and swelling. Who should not use cryotherapy? Cryotherapy is not safe for people who cannot tell you if they are in pain, such as small children and people who have dementia. Cryotherapy is also not safe for people with certain conditions, such as: ? Raynaud phenomenon. ? Cold hypersensitivity. ? Numbness or loss of feeling in the area being iced. Cryotherapy may or may not be safe for people with certain other conditions. Do not use cryotherapy without your health care provider's approval if you have: ? A heart condition. ? High blood pressure. ? Open or healing wounds. ? An infection. ? Rheumatoid arthritis. ? Poor circulation. ? Diabetes. ? Certain skin conditions. How do I use cryotherapy? To use cryotherapy at home to reduce pain and swelling: ? Place a towel between the cold source and your skin. ? Apply the cold source for no more than 20 minutes at a time. ? Check your skin after 5 minutes to make sure there are no signs of a poor response to cold or skin damage. Check for: ? White spots on your skin. Your skin may look blotchy or mottled. ? Skin that looks blue or pale. ? Skin that feels waxy or hard. ? Repeat these steps as many times each day as told by your health care provider. How can I make a cold pack? When using a cold pack at home to reduce pain and swelling, you can use: ? A silica gel cold pack that has been left in the freezer. You can buy this online or in stores. ? A plastic bag of frozen vegetables. ? A sealable plastic bag that has been filled with crushed ice. Always wrap the pack in a dry or damp towel to avoid direct contact with your skin. Contact a health care provider if: ? You develop white spots on your skin. This may give your skin a blotchy or mottled look. ? Your skin turns blue or pale. ? Your skin becomes waxy or hard. ? Your swelling gets worse. This information is not intended to replace advice given to you by your health care provider. Make sure you discuss any questions you have with your health care provider. Document Released: 06/08/2012 Document Revised: 12/18/2017 Document Reviewed: 06/26/2016 [employer] Interactive Patient Education ? 2019 [employer] Dermatology Hematoma: Care Instructions Your Care Instructions A hematoma is a bad bruise. It happens when an injury causes blood to collect and pool under the skin. The pooling blood gives the skin a spongy, rubbery, lumpy feel. A hematoma usually is not a cause for concern. It is not the same thing as a blood clot in a vein, and it does not cause blood clots. Follow-up care is a part of your treatment and safety. Be sure to make and go to all appointments, and call your doctor if you are having problems. It's also a good idea to know your test results and keep a list of the medicines you take. How can you care for yourself at home? ? Rest and protect the bruised area. ? Put ice or a cold pack on the area for 10 to 20 minutes at a time. ? Prop up the bruised area on a pillow when you ice it or anytime you sit or lie down during the next 3 days. Try to keep it above the level of your heart. This will help reduce swelling. ? Wrapping the bruised area with an elastic bandage such as an Catia wrap will help decrease swelling. Don't wrap it too tightly, as this can cause more swelling below the affected area. ? Be safe with medicines. Read and follow all instructions on the label. ? If the doctor gave you a prescription medicine for pain, take it as prescribed. ? If you are not taking a prescription pain medicine, ask your doctor if you can take an [id number] medicine. ? Do not take two or more pain medicines at the same time unless the doctor told you to. Many pain medicines have acetaminophen, which is Tylenol. Too much acetaminophen (Tylenol) can be harmful. When should you call for help? Call your doctor now or seek immediate medical care if: ? You have signs of skin infection, such as: ? Increased pain, swelling, warmth, or redness. ? Red streaks leading from the area. ? Pus draining from the area. ? A fever. Watch closely for changes in your health, and be sure to contact your doctor if: ? The bruise lasts longer than 4 weeks. ? The bruise gets bigger or becomes more painful. ? You do not get better as expected. Where can you learn more? Go to https://www.tzonebd.com.net/patientEd Enter P911 in the search box to learn more about Hematoma: Care Instructions. Current as of: December 22, 2019 Content Version: 12.7 ? [employer]. Care instructions adapted under license by your healthcare professional. If you have questions about a medical condition or this instruction, always ask your healthcare professional. (more content not included)... Normal [facility] ED Emergency Severity Index Adult-Texton 10-18-2022 ED Emergency Severity Index Adult-Text AIME - Adult Entered On: 10/18/2022 7:42 EST Performed On: 10/18/2022 7:42 EST by Estrella Patel RN AIME DCP GENERIC CODE Visit Reason : fall, left khan hematoma Tracking Triage Date/Time : 10/18/2022 07:42 EST Tracking Reg Status : Requested Tracking Acuity : [id number] Tracking Group : [id number] Tracking Estrella Patel RN - 10/18/2022 7:42 EST Normal [facility] ED Nrsing Adlt Triage Sep Sc rning - Texton 10-18-2022 ED Nrsing Adlt Triage Sep Scrning - Text ED Nursing Adult Triage Sepsis Screening Tool Entered On: 10/18/2022 7:44 EST Performed On: 10/18/2022 7:43 EST by Estrella Patel RN Adult Sepsis Screening Sepsis Infection Screening ED : Yes Sepsis Vitals Screening ED : Tachycardia > 90 bpm Sepsis Vital Sign Criteria ED : No Estrella Patel RN - 10/18/2022 7:43 EST Normal [facility] ED Patient Summaryon 022 ED Patient Summary [facility] Emergency Department Discharge Instructions [address] [place] [address] \.br\(Harrison carrasco Copy)\.br\ \.br\Name: CARLOTTA PETERSEN : 1975 \.br\Allergies: azithromycin\.br\Kelley gnosis: Traumatic hematoma of left lower leg\.br\ \.br\ Visit Date: 10/18/2022 07:38:20 \.br\ Current Date Time: 10/18/2022 08:27:49 \.br\Address: [address] [place] [address] \.br\ \.br\ \.br\Primary Care Provider: \.br\Name: ROGER FAGAN\.br\Phone: \.br\ \.br\Emergency Department Care Providers: \.br\ Primary Physician: LARON HERNANDEZ MD \.br\ \.br\ \.br\\.br\Thank you for choosing [facility] for your emergency care. You are very important to us. Our goal is to demonstrate our high quality medical care, and provide you with a very good patient experience.\.br\\.br \You may receive a survey about our service. Please take the time to complete the survey and return it so we can continue to enhance our service.\.br\\.br\Th ank you again for allowing the [facility] Emergency Department to care for your medical needs. If you have questions about your care or follow up information please contact us at [phone].\.br\\. br\ Follow-Up Instructions\.br\___ \.br\CARLOTTA PETERSEN has been given these follow-up instructions:\.br\\. br\\.br\With: Address: When: \.br\[facility] [address] [place] [address]\.br\ Business (1) Within 3 to 5 days \.br\\.br\\.br\With: Address: When: \.br\[facility] [address], [address] [place] [address]\.br\ Business (1) Within 3 to 5 days \.br\\.br\\.br\\.br\ \.br\Patient Education Materials\.br\ __\.br\CARLOTTA PETERSEN has been given the following patient education materials:\.br\\.br\ Learning About RICE (Rest, Ice, Compression, and Elevation)\.br\What is RICE?\.br\\.br\RICE is a way to care for an injury. RICE helps relieve pain and swelling. It may also help with healing and flexibility. RICE stands for:\.br\? R est and protect the injured or sore area.\.br\? I ce or a cold pack used as soon as possible.\.br\? C ompression, or wrapping the injured or sore area with an elastic bandage.\.br\? E levation (propping up) the injured or sore area.\.br\How do you do RICE?\.br\You can use RICE for home treatment when you have general aches and pains or after an injury or surgery.\.br\Rest\.b r\? Do not put weight on the injury for at least 24 to 48 hours.\.br\? Use crutches for a badly sprained knee or ankle.\.br\? Support a sprained wrist, elbow, or shoulder with a sling.\.br\Ice\.br\? Put ice or a cold pack on the injury right away to reduce pain and swelling. Frozen vegetables will also work as an ice pack. Put a thin cloth between the ice or cold pack and your skin. The cloth protects the injured area from getting too cold.\.br\? Use ice for 10 to 15 minutes at a time for the first 48 to 72 hours.\.br\Compressi on\.br\? Use compression for sprains, strains, and surgeries of the arms and legs.\.br\? Wrap the injured area with an elastic bandage or compression sleeve to reduce swelling.\.br\? Don't wrap it too tightly. If the area below it feels numb, tingles, or feels cool, loosen the wrap.\.br\Elevation\ .br\? Use elevation for areas of the body that can be propped up, such as arms and legs.\.br\? Prop up the injured area on pillows whenever you use ice. Keep it propped up anytime you sit or lie down.\.br\? Try to keep the injured area at or above the level of your heart. This will help reduce swelling and bruising.\.br\Where can you learn more?\.br\Go to https://www.[employer].net/patientEd\.br \Enter I463 in the search box to learn more about Learning About RICE (Rest, Ice, Compression, and Elevation).\.br\Curr ent as of: December 27, 2019 Content Version: 12.7\.br\? [employer]. \.br\Care instructions adapted under license by your healthcare professional. If you have questions about a medical condition or this instruction, always ask your healthcare professional. [employer] disclaims any warranty or liability for your use of this information.\.br\Cry otherapy\.br\What is cryotherapy?\.br\Cry otherapy, or cold therapy, is a treatment that uses cold temperatures to treat an injury or medical condition. It includes using cold packs or ice packs to reduce pain and swelling.\.br\Who should not use cryotherapy?\.br\Cry otherapy is not safe for people who cannot tell you if they are in pain, such as small children and people who have dementia. Cryotherapy is also not safe for people with certain conditions, such as:\.br\? Raynaud phenomenon.\.br\? Cold hypersensitivity.\.b r\? Numbness or loss of feeling in the area being iced.\.br\\.br\Cryot herapy may or may not be safe for people with certain other conditions. Do not use cryoth (more content not included)... Normal [facility] ED Physician Reporton 2021 ED Physician Report Patient: CARLOTTA PETERSEN Age: 47 years Sex: Male : 1975 Associated Diagnoses: Fall; Leg pain-swelling; Traumatic hematoma of left lower leg Author: LARON HERNANDEZ MD Basic Information Time seen: Time Seen: LARON HERNANDEZ MD / 10/18/2022 07:46 . History of Present Illness 47 M PMH recent [place] on DAPT presenting as a walk-in to the emergency department following mechanical slip and partial fall negative head/neck strike negative LOC GCS 15. Patient states that he slipped outside next to his truck and his left khan hit ?truck step. Patient states that tetanus has been within the past 5 years. Pt states that swelling and pain noted, triggering visit. Patient denies any weakness, inability to bear weight or walk. Pt denies any pain unless swollen region is palpated.Pt denies any other sx at this time. . Review of Systems Constitutional symptoms: No fever, no chills. Skin symptoms: Abrasions, no rash, no pruritus. Eye symptoms: Vision unchanged, no recent vision problems, no pain. ENMT symptoms: No sore throat, no nasal congestion. Respiratory symptoms: No shortness of breath, no cough. Cardiovascular symptoms: No chest pain, no palpitations, no diaphoresis. Gastrointestinal symptoms: No abdominal pain, no nausea, no vomiting. Genitourinary symptoms: No dysuria, no hematuria. Musculoskeletal symptoms: No back pain, no Muscle pain. Neurologic symptoms No headache, no dizziness, no weakness. Additional review of systems information: All other systems reviewed and otherwise negative. Health Status Allergies: Allergic Reactions (Selected) Severity Not Documented Azithromycin- No reactions were documented.. Past Medical/ Family/ Social History Medical history: No active or resolved past medical history items have been selected or recorded.. Surgical history: No active procedure history items have been selected or recorded.. Family history: No family history items have been selected or recorded.. Problem list: Active Problems (3) Hyperlipidemia Hypertension [place] (myocardial infarction) . Physical Examination Vital Signs Per nurse's notes. General: Alert, no acute distress. Skin: Warm, dry, intact. Head: Normocephalic, atraumatic. Neck: Supple, trachea midline, no tenderness. Eye: Pupils are equal, round and reactive to light, extraocular movements are intact, normal conjunctiva. Ears, nose, mouth and throat: Oral mucosa moist, no pharyngeal erythema or exudate. Cardiovascular: Regular rate and rhythm, No edema. Respiratory: Lungs are clear to auscultation, respirations are non-labored, Symmetrical chest wall expansion. Chest wall: No tenderness, No deformity. Back: Nontender, Normal range of motion, no step-offs. Musculoskeletal: Normal ROM, normal strength, left khan with nonpulsatile hematoma about 4cm in diameter with overlying superficial abrasion. distal pulses 2+. 5/5 strength.. Gastrointestinal: Soft, Nontender, no guarding. Psychiatric: Cooperative, appropriate mood & affect, normal judgment, non-suicidal. Neurological Alert and oriented to person, place, time, and situation, No focal neurological deficit observed, CN II-XII intact, normal sensory observed, normal motor observed, normal speech observed. Medical Decision Making Radiology results: No qualifying data available.. Notes: Patient presenting to the emergency department with history and exam suggestive of localized hematoma following blunt injury to left khan. Differential diagnosis include hematoma, contusion of the left khan Chart review showing history of [place] HTN HLD Pt with risk factors of being on DAPT Offerred imaging to patient to screen for fx, though pt deferring at this time. Pt given medications. Procedure Procedure note Time Procedure Confirmed Indication: Catia wrap hematoma. Consent: Has given verbal consent. Location: Traumatic injured extremity per nursing note and ED Note. Procedural sedation: None. Monitoring: See nurse's notes. Technique: This wrap was applied with standard techniques as outlined in the briar shop supervisor's guidelines. . Post procedure exam: The patient was examined pre and post wrap placement and was found to be neurovacularly intact and have good position and alignment after catia wrap was applied. . Patient tolerated: Well. Complications: None. Performed by: Medic under my supervison. Total time: 15 minutes. Impression and Plan Diagnosis Fall (PNED [id number], Reason For Visit, Medical) Leg pain-swelling (PNED [id number], Reason For Visit, Medical) Traumatic hematoma of left lower leg ([id number], Discharge, Medical) Plan Counseled: Patient. Notes: If a scribe was involved, I personally performed the services described in the documentation, and reviewed and edited the documentation which was dictated to the scribe in my presence, and (more content not included)... Normal [facility] ED Triage Adult-Texton 10-18 ED Triage Adult-Text ED Triage Entered On: 10/18/2022 7:43 EST Performed On: 10/18/2022 7:42 EST by Estrella Patel RN Triage (As Of: 10/18/2022 07:43:40 EST) Diagnoses(Active) Fall Date: 10/18/2022 ; Diagnosis Type: Reason For Visit ; Confirmation: Confirmed ; Clinical Dx: Fall ; Classification: Medical ; Clinical Service: Non-Specified ; Code: PNED ; Probability: 0 ; Diagnosis Code: [id number] Leg pain-swelling Date: 10/18/2022 ; Diagnosis Type: Reason For Visit ; Confirmation: Confirmed ; Clinical Dx: Leg pain-swelling ; Classification: Medical ; Clinical Service: Non-Specified ; Code: PNED ; Probability: 0 ; Diagnosis Code: [id number] (As Of: 10/18/2022 07:43:40 EST) Allergies (Active) azithromycin Estimated Onset Date: Unspecified ; Created By: Estrella Patel RN; Reaction Status: Active ; Category: Drug ; Substance: azithromycin ; Type: Allergy ; Updated By: Estrella Patel RN; Reviewed Date: 10/18/2022 7:42 EST Vitals/Ht/Wt Temperature Oral : 37.0 degC Pulse Rate : 93 bpm Respiratory Rate : 18 br/min Systolic Blood Pressure : 149 mmHg (HI) Diastolic Blood Pressure : 96 mmHg (HI) SpO2 : 97 % Oxygen Therapy : Room air Pain Symptoms : Yes Numeric Pain Scale : 2 = Mild Pain VAS Pain Scale Age : VAS (8 yrs & older) Height/Length Dosing : 187.96 cm(Converted to: 6.17 ft, 74.00 in) Weight Measured Type of Scale : Standing Scale Weight Dosing : 105 kg(Converted to: 3,703.766 oz, 231.485 lb) Body Mass Index Dosing : 30 Estrella Patel RN - 10/18/2022 7:42 EST Normal [facility] Basophil percentageon 2021 Basophil percentage < 0.9 mg/dL 0.70-1.30 [facility] Work Phone: No Panel Informationon 05-03 Bedside Estimated GFR (eGFR) > 60.0000 mL/min >60 [facility] Work Phone: COVID-19, NAAon 07-05-2020 COVID-19, KHRIS Not Detected Normal Not Detected [facility] Comment on above: Order Comment: ORDER WAS CANCELLED 07/04/2020 08:13, Cancelled: Sent to Reference Laboratory 07/04/2020 08:14. Result Comment: This nucleic acid amplification test was developed and its performance characteristics determined by [facility]. Nucleic acid amplification tests include PCR and TMA. This test has not been FDA cleared or approved. This test has been authorized by FDA under an Emergency Use Authorization (EUA). This test is only authorized for the duration of time the declaration that circumstances exist justifying the authorization of the emergency use of in vitro diagnostic tests for detection of SARS-CoV-2 virus and/or diagnosis of COVID-19 infection under section 564(b)(1) of the Act, 21 U.S.C. 360bbb-3(b) (1), unless the authorization is terminated or revoked sooner. When diagnostic testing is negative, the possibility of a false negative result should be considered in the context of a patient's recent exposures and the presence of clinical signs and symptoms consistent with COVID-19. An individual without symptoms of COVID-19 and who is not shedding SARS-CoV-2 virus would expect to have a negative (not detected) result in this assay. Performed at: [facility], [place], [place] [id number] [employer] Wafer: Ruben Ellis MD, Phone: [phone] Sherwin JENSEN 07-04-2020 Source Swab OP swab Normal [facility] Comment on above: Order Comment: ORDER WAS CANCELLED 07/04/2020 08:13, Cancelled: Sent to [facility] 07/04/2020 08:14. CBC With Platelet and Differ entialon 07-03-2020 Abs Imm Granulocytes 0.04 E9/L Normal [facility] Basophils (Bld) [#/Vol] 0.12 E9/L Normal 0.00-0.20 [facility] Basophils/100 WBC (Bld) 0.9 % Normal 0.0-2.0 [facility] Eosinophils (Bld) [#/Vol] 0.49 E9/L Normal 0.05-0.50 [facility] Eosinophils/100 WBC (Bld) 3.7 % Normal 0.0-6.0 [facility] Erythrocyte distribution width (RBC) [Ratio] 13.5 fL Normal 11.5-15.0 [facility] Hematocrit (Bld) [Volume fraction] 45.1 % Normal 37.0-54.0 [facility] Hemoglobin (Bld) [Mass/Vol] 15.7 g/dL Normal 12.5-16.5 [facility] Imm Granulocytes 0.3 % Normal 0.0-5.0 [facility] Lymphocytes (Bld) [#/Vol] 2.90 E9/L Normal 1.50-4.00 [facility] Lymphocytes/100 WBC (Bld) 21.7 % Normal 20.0-42.0 [facility] MCH (RBC) [Entitic mass] 32.8 pg Normal 26.0-35.0 [facility] MCHC (RBC) [Mass/Vol] 34.8 % High 32.0-34.5 [facility] MCV (RBC) [Entitic vol] 94.4 fL Normal 80.0-99.9 [facility] Monocytes (Bld) [#/Vol] 1.16 E9/L High 0.10-0.95 [facility] Monocytes/100 WBC (Bld) 8.7 % Normal 2.0-12.0 [facility] Neutrophils (Bld) [#/Vol] 8.67 E9/L High 1.80-7.30 [facility] Neutrophils/100 WBC (Bld) 64.7 % Normal 43.0-80.0 [facility] Platelet mean volume (Bld) [Entitic vol] 9.3 fL Normal 7.0-12.0 [facility] Platelets (Bld) [#/Vol] 274 E9/L Normal 130-450 [facility] RBC (Bld) [#/Vol] 4.78 E12/L Normal 3.80-5.80 [facility] WBC (Bld) [#/Vol] 13.4 E9/L High 4.5-11.5 [facility] CBC auto differentialon 090 Basophils (Bld) [#/Vol] 0.12 10*3/uL [place] Basophils/100 WBC (Bld) 0.9 % 0 - 2 % M [place] Eosinophils (Bld) [#/Vol] 0.49 10*3/uL [place] Eosinophils/100 WBC (Bld) 3.7 % 0 - 6 % [place] Erythrocyte distribution width (RBC) [Ratio] 13.5 fL 11.5 - 15 fL [place] Hematocrit (Bld) [Volume fraction] 45.1 % 37 - 54 % [place] Hemoglobin (Bld) [Mass/Vol] 15.7 g/dL 12.5 - 16.5 g/dL [place] Immature granulocytes (Bld) [#/Vol] 0.04 10*3/uL E9/L [place] Immature granulocytes/100 WBC (Bld) 0.3 % 0 - 5 % [place] Interpretation and review of laboratory results Abnormal [place] Lymphocytes (Bld) [#/Vol] 2.90 10*3/uL [place] Lymphocytes/100 WBC (Bld) 21.7 % 20 - 42 % [place] MCH (RBC) [Entitic mass] 32.8 pg 26 - 35 pg [place] MCHC (RBC) [Mass/Vol] 34.8 % High 32 - 34.5 % [place], [place] MCV (RBC) [Entitic vol] 94.4 fL 80 - 99.9 fL [place] Monocytes (Bld) [#/Vol] 1.16 10*3/uL [place] Monocytes/100 WBC (Bld) 8.7 % 2 - 12 % M [place] Neutrophils Absolute 8.67 High [place] Neutrophils/100 WBC (Bld) 64.7 % 43 - 80 % [place] Platelet mean volume (Bld) [Entitic vol] 9.3 fL 7 - 12 fL [place], [place] Platelets (Bld) [#/Vol] 274 10*3/uL [place] RBC (Bld) [#/Vol] 4.78 10*6/uL [place] WBC (Bld) [#/Vol] 13.4 10*3/uL [place] Comprehensive Metabolic Pane kyra 07-03-2020 Albumin [Mass/Vol] 4.3 g/dL Normal 3.5-5.2 [facility] ALP [Catalytic activity/Vol] 106 U/L Normal 40-129 [facility] ALT [Catalytic activity/Vol] 23 U/L Normal 0-40 [facility] Anion gap [Moles/Vol] 10 mmol/L Normal 7-16 [facility] AST [Catalytic activity/Vol] 17 U/L Normal 0-39 [facility] Bilirubin [Mass/Vol] 0.4 mg/dL Normal 0.0-1.2 [facility] Calcium [Mass/Vol] 9.2 mg/dL Normal 8.6-10.2 [facility] Chloride [Moles/Vol] 106 mmol/L Normal 98-107 [facility] CO2 [Moles/Vol] 27 mmol/L Normal 22-29 [facility] Creatinine [Mass/Vol] 1.0 mg/dL Normal 0.7-1.2 [facility] GFR/1.73 sq M predicted among blacks MDRD (S/P/Bld) [Vol rate/Area] mL/min/{1.73_m2} Normal [facility] GFR/1.73 sq M predicted among non-blacks MDRD (S/P/Bld) [Vol rate/Area] mL/min/{1.73_m2} Normal >=60 [facility] Comment on above: Result Comment: Jig Operator gabriel Kidney Disease: less than 60 ml/min/1.73 sq.m. Kidney Failure: less than 15 ml/min/1.73 sq.m. Results valid for patients 18 years and older. Glucose [Mass/Vol] 109 mg/dL High 74-99 [facility] Potassium [Moles/Vol] 3.9 mmol/L Normal 3.5-5.0 [facility] Protein [Mass/Vol] 7.0 g/dL Normal 6.4-8.3 [facility] Sodium [Moles/Vol] 143 mmol/L Normal 132-146 [facility] Urea nitrogen [Mass/Vol] 13 mg/dL Normal 6-20 [facility] Albumin [Mass/Vol] 4.3 g/dL 3.5 - 5.2 g/dL [place], [place] ALP [Catalytic activity/Vol] 106 U/L 40 - 129 U/L [place] ALT [Catalytic activity/Vol] 23 U/L 0 - 40 U/L [place] Anion gap [Moles/Vol] 10 mmol/L 7 - 16 mmol/L [place] AST [Catalytic activity/Vol] 17 U/L 0 - 39 U/L [place] Bilirubin Ql (U) 0.4 mg/dL 0 - 1.2 mg/dL [place] Calcium [Mass/Vol] 9.2 mg/dL 8.6 - 10. 2 mg/dL [place] Chloride [Moles/Vol] 106 mmol/L 98 - 10 7 mmol/L [place] CO2 [Moles/Vol] 27 mmol/L 22 - 29 mmol/L [place] Creatinine [Mass/Vol] 1 mg/dL 0.7 - 1.2 mg/dL [place] GFR >60 [place] GFR Non- >60 >=60 mL/min/1.73 [place] Comment on above: Chronic Kidney Disea se: less than 60 ml/min/1.73 sq.m. Kidney Failure: less than 15 ml/min/1.73 sq.m. Results valid for patients 18 years and older. Glucose [Mass/Vol] 109 mg/dL High 74 - 99 mg/dL [place], [place] Interpretation and review of laboratory results Abnormal [place], [place] Potassium [Moles/Vol] 3.9 mmol/L 3.5 - 5 mmol/L [place] Protein [Mass/Vol] 7.0 g/dL 6.4 - 8.3 g/dL [place], [place] Sodium [Moles/Vol] 143 mmol/L 132 - 146 mmol/L [place] Urea nitrogen [Mass/Vol] 13 mg/dL 6 - 20 mg/dL [place] Lipaseon 07-03-2020 Lipase [Catalytic activity/Vol] 21 U/L Normal 13-60 [facility] Lipase [Catalytic activity/Vol] 21 U/L 13 - 60 U/L [place] Troponinon 07-03-2020 Troponin I.cardiac [Mass/Vol] ng/mL Normal 0.00-0.03 [facility] Comment on above: Result Comment: TROP ONIN T BLOOD LEVELS: 0.03 ng/mL Upper Reference Limit 0.04 - 0.09 ng/mL Possible myocardial injury >= 0.10 ng/mL Myocardial injury Troponin I.cardiac [Mass/Vol] ng/mL 0 - 0.03 ng/mL [place] Comment on above: TROPONIN T BLOOD LEV ELS: 0.03 ng/mL Upper Reference Limit 0.04 - 0.09 ng/mL Possible myocardial injury >= 0.10 ng/mL Myocardial injury XR CHEST (2 VW)on 07-03-2020 XR CHEST (2 VW) Patient : 1975 Age: 45 years Gender: Male Order Date: 07/03/2020 2:41 PM Exam: XR CHEST (2 VW) Number of Images: 2 view Indication: Acute Cough, SOB Comparison: None. FINDINGS: Heart and pulmonary vascularity normal. Lungs clear. Costophrenic angles sharp. Normal aorta. IMPRESSION: No acute cardiopulmonary findings. Interpreted by: Barrington Mazariegos MD Signed by: Barrington Mazariegos MD 07/03/20 Final result Normal [facility] [place], [place] Incoming Radiant Results From [employer] - 07/03/2020 2:53 PM EDT Patient : 1975 Age: 45 years Gender: Male Order Date: 07/03/2020 2:41 PM Exam: XR CHEST (2 VW) Number of Images: 2 view Indication: Acute Cough, SOB Comparison: None. FINDINGS: Heart and pulmonary vascularity normal. Lungs clear. Costophrenic angles sharp. Normal aorta. IMPRESSION: No acute cardiopulmonary findings. [place] Patient : 1975 Age: 45 years Gender: Male Order Date: 07/03/2020 2:41 PM Exam: XR CHEST (2 VW) Number of Images: 2 view Indication: Acute Cough, SOB Comparison: None. FINDINGS: Heart and pulmonary vascularity normal. Lungs clear. Costophrenic angles sharp. Normal aorta. [place] No acute cardiopulmonary findings. [place] Vital Signs Date Time Vital Sign Value Performing Clinician Facility 12-10-2023 09:32-0500 Body height 185.4 cm Tyler Jacobs MD Work Phone: [facility] 12-10-2023 09:32-0500 Body weight 103 kg Tyler Jacobs MD Work Phone: [facility] 12-10-2023 09:32-0500 Diastolic blood pressure 87 mm[Hg] Tyler Jacobs MD Work Phone: [facility] 12-10-2023 09:32-0500 Heart rate 75 /min Tyler Jacobs MD Work Phone: [facility] 12-10-2023 09:32-0500 SaO2% (BldA) [Mass fraction] 96 % Tyler Jacobs MD Work Phone: [facility] 12-10-2023 09:32-0500 Systolic blood pressure 144 mm[Hg] Tyler Jacobs MD Work Phone: [facility] 06-03-2023 08:50-0400 Body height 185.4 cm Tyler Jacobs MD Work Phone: [facility] 06-03-2023 08:50-0400 Body weight 101.15 kg Tyler Jacobs MD Work Phone: [facility] 06-03-2023 08:50-0400 Diastolic blood pressure 85 mm[Hg] Tyler Jacobs MD Work Phone: [facility] 06-03-2023 08:50-0400 Heart rate 80 /min Tyler Jacobs MD Work Phone: [facility] 06-03-2023 08:50-0400 SaO2% (BldA) [Mass fraction] 98 % Tyler Jacobs MD Work Phone: [facility] 06-03-2023 08:50-0400 Systolic blood pressure 118 mm[Hg] Tyler Jacobs MD Work Phone: [facility] 07-10-2022 08:51-0400 Body height 185.4 cm Tyler Jacobs MD Work Phone: [facility] 07-10-2022 08:51-0400 Body weight 102.06 kg Tyler Jacobs MD Work Phone: [facility] 07-10-2022 08:51-0400 Diastolic blood pressure 95 mm[Hg] Tyler Jacobs MD Work Phone: [facility] 07-10-2022 08:51-0400 Heart rate 65 /min Tyler Jacobs MD Work Phone: [facility] 07-10-2022 08:51-0400 SaO2% (BldA) [Mass fraction] 98 % Tyler Jacobs MD Work Phone: [facility] 07-10-2022 08:51-0400 Systolic blood pressure 145 mm[Hg] Tyler Jacobs MD Work Phone: [facility] 04-03-2022 10:56-0400 Body height 185.4 cm Jenifer Mcneill [employer] SUPERVISOR.SOCIETY REPORTER Work Phone: [facility] 04-03-2022 10:56-0400 Body weight 101.15 kg Jenifer Mcneill [employer] C[employer] SUPERVISOR.SOCIETY REPORTER Work Phone: [facility] 04-03-2022 10:56-0400 Diastolic blood pressure 94 mm[Hg] Jenifer Mcneill METAL CANS SUPERVISOR.SOCIETY REPORTER Work Phone: [facility] 04-03-2022 10:56-0400 Heart rate 70 /min Jenifer Mcneill METAL CANS SUPERVISOR.SOCIETY REPORTER Work Phone: [facility] 04-03-2022 10:56-0400 Respiratory rate 18 /min Jenifer Mcneill [employer] C[employer] SUPERVISOR.SOCIETY REPORTER Work Phone: [facility] 04-03-2022 10:56-0400 SaO2% (BldA) [Mass fraction] 99 % Jenifer Mcneill MET[employer] C[employer] SUPERVISOR.SOCIETY REPORTER Work Phone: [facility] 04-03-2022 10:56-0400 Systolic blood pressure 148 mm[Hg] Jenifer Mcneill [employer] C[employer] SUPERVISOR.SOCIETY REPORTER Work Phone: [facility] 07-03-2020 14:17-0400 BMI (Body Mass Index) 29.03 kg/m2 Hank Kumar [facility] [place], [place] 07-03-2020 14:170400 Body weight 99.79 kg Hank Greer [facility], [place] 07-03-2020 14:17-0400 Height 185.4 cm Hank Greer [facility], [place] 07-03-2020 14:14-0400 Body Temperature 96.91 [degF] Hank Greer [facility]- [place], [place] 07-03-2020 14:14-0400 BP Diastolic 94 mm[Hg] Hank Greer [facility] 07-03-2020 14:14-0400 BP Systolic 172 mm[Hg] [facility] [place] [place] 07-03-2020 14:14-0400 Pulse (Heart Rate) 113 /min Hank Greer [facility] [place] 07-03-2020 14:14-0400 Pulse Oximetry 97 % Hank Greer [facility] [place] 07-03-2020 14:14-0400 Respiratory Rate 16 /min Hank Greer [facility] [place], [place] Encounters Encounter Date Encounter Type Care Provider Facility Start: 02-03-2024 Telephone encounter Tyler Tinoco i, MD Work Phone: Cardiology Comment on above: Received Outside [facility] ([facility]) Start: 12-10-2023 End: 12-10-2023 ambulatory TYLER JACOBS Facility:[facility] Start: 12-10-2023 End: 12-10-2023 Patient encounter procedure Tyler Jacobs MD Work Phone: Cardiology Comment on above: Coronary artery dise ase involving [place] coronary artery of [place] heart without angina pectoris (Primary Dx); History of coronary artery stent placement; Primary hypertension; Smoker Start: 11-20-2023 End: 11-20-[address] [facility] Work Phone: Start: 11-20-2023 End: 11-20-2023 Patient encounter procedure [facility] Work Phone: Start: 07-03-2023 Refill Tyler Jacobs MD Work Phone: [facility] Comment on above: Refill Request Start: 06-03-2023 End: 06-03-2023 ambulatory ROGER Barriga LOMELI Facility:[facility] Start: 06-03-2023 End: 06-03-2023 Patient encounter procedure Tyler Jacobs MD Work Phone: [facility] Comment on above: Coronary artery dise ase involving [place] coronary artery of [place] heart without angina pectoris (Primary Dx); Smoker; Primary hypertension; History of coronary artery stent placement Start: 01-28-2023 Telephone encounter Ag Card Work Phone: [facility] [place] Comment on above: Appointment Start: 01-27-2023 Telephone encounter Tyler Tinoco i, MD Work Phone: [facility] Comment on above: Appointment Start: 01-26-2023 Refill Tyler Jacobs MD Work Phone: Cardiology Comment on above: Refill Request Start: 10-24-2022 End: 10-24-[address] Roger Lomeli Work Phone: [facility] Start: 10-24-2022 Non-patient / Non-visit Dr. Earnest Lomeli Work Phone: [facility] Start: 10-23-2022 End: 10-23-[address] Roger Lomeli Work Phone: [facility] Work Phone: Start: 10-23-2022 End: 10-23-[address] Roger Lomeli Work Phone: [facility] Start: 10-18-2022 End: 10-18-2022 Emergency department patient visit ROGER FAGAN Facility:[id number] Start: 09-28-2022 Refill Jenifer Mcneill APRN.CNP Work Phone: [facility] [place] Comment on above: Refill Request Start: 07-11-2022 ambulatory Roger rodriguez MD Work Phone: [facility] Comment on above: Lab results Start: 07-11-2022 E-mail encounter fro m caregiver Roger Lomeli MD Work Phone: [facility] Start: 07-11-2022 Telephone encounter Tyler Tinoco i, MD Work Phone: Cardiology Comment on above: Orders Results, Lab (Sent t [facility]) Start: 07-10-2022 ambulatory Tyler Jacobs MD Work Phone: Cardiology Comment on above: Smoking Cessation Pr ogram Start: 07-10-2022 E-mail encounter aguila m caregiver Tyler Jacobs MD Work Phone: [facility] Start: 07-10-2022 End: 07-10-2022 Patient encounter procedure Tyler Jacobs MD Work Phone: Cardiology Comment on above: Coronary artery dise ase involving [place] coronary artery of [place] heart without angina pectoris (Primary Dx); Primary hypertension; Smoker Start: 05-03-2022 End: 05-03-2022 Patient encounter procedure [facility] Start: 04-03-2022 Telephone encounter Tyler Tinoco i, MD Work Phone: Cardiology Comment on above: Patient Question; Ca re Coordinator - Other; Appointment Start: 04-03-2022 End: 04-03-2022 Patient encounter procedure Jenifer Mcneill APRN.SOCIETY REPORTER Work Phone: [facility] [place] Comment on above: Coronary artery dise ase involving [place] coronary artery of [place] heart without angina pectoris (Primary Dx); NSTEMI (non-ST elevated myocardial infarction) (HCC); Essential hypertension; Mixed hyperlipidemia; Tobacco abuse; Primary hypertension; Other hyperlipidemia Start: 03-07-2022 Telephone encounter Roger Lomeli MD Work Phone: [address] [place] [address] Comment on above: Follow Up Phone Call (All Clear) Start: 07-03-2020 End: 07-03-2020 Emergency department patient visit [facility] Start: 07-03-2020 End: 07-03-2020 Emergency department patient visit [facility] Work Phone: [facility] Comment on above: Upper respiratory tr act infection, unspecified type (Primary Dx) Procedures Date Procedure Procedure Detail Performing Clinician Start: 12-10-2023 Ecg routine ecg w/le ast 12 lds i&r only [facility] Provider Start: 10-23-2022 Plain X-ray of tibia and fibula Dr. Roger Lomeli Work Phone: Start: 07-10-2022 Lipid 1996 panel - S michelle or Plasma Tyler Jacobs MD Work Phone: Start: 05-03-2022 CT of thorax with contrast Start: 07-03-2020 Ecg routine ecg w/le ast 12 lds w/i&r HANK GREER Start: 07-03-2020 Radiologic exam ches t 2 views HANK GREER Start: 07-03-2020 Assay of lipase VIPINAMI Cristian GREER Start: 07-03-2020 Assay of troponin quantitative HANK GREER Start: 07-03-2020 Blood count complete auto&auto difrntl wbc HANK GREER Start: 07-03-2020 Comprehensive metabo lic panel HANK GREER Start: 07-03-2020 COVID-19 HANK MISTRY Start: 07-03-2020 Ecg routine ecg w/le ast 12 lds w/i&r Hank Greer Work Phone: Start: 07-03-2020 Radiologic exam ches t 2 views Hank Greer Work Phone: Start: 07-03-2020 Assay of lipase Vipinami cristian Greer Work Phone: Start: 07-03-2020 Assay of troponin quantitative Hank Greer Work Phone: Start: 07-03-2020 Blood count complete auto&auto difrntl wbc Hank Greer Work Phone: Start: 07-03-2020 Comprehensive metabo lic panel Hank Greer Work Phone: History of placement of stent for coronary artery disease History of coronary artery stent placement Tyler Jacobs MD Work Phone: History of placement of stent for coronary artery disease History of coronary artery stent placement Tyler Jacobs MD Work Phone: Plan of Treatment Date Care Activity Detail Author Start: 07-10-2027 Lipid panel Lipid Screening [facility] Start: 07-10-2027 LIPID SCREEN LIPID SCREEN [facility] Start: 03-02-2027 LIPID SCREEN LIPID SCREEN [facility] Start: 07-10-2025 DIABETES SCREEN DIABETES SCREEN [facility] Start: 07-10-2025 Diabetes Screening Diabetes Screenin g [facility] Start: 03-05-2025 DIABETES SCREEN DIABETES SCREEN [facility] Start: 06-27-2024 Influenza vaccination Influenz a Vaccine (Season Ended) [facility] Start: 10-27-2023 Behavioral Health Screening Behavioral Health Screening [facility] Start: 10-27-2023 Depression Assessment [facility] Start: 07-10-2023 Hepatitis B surface antibody level LDL CHOLESTEROL [facility] Start: 06-27-2023 Covid-19 Vaccine ( season) Covid-19 Vaccine ( season) [facility] Start: 06-27-2023 Influenza vaccination C [facility] Start: 03-02-2023 Hepatitis B surface antibody level LDL CHOLESTEROL [facility] Start: 10-27-2022 DEPRESSION ASSESSMENT DEPRESSION ASS ESSMENT [facility] Start: 07-10-2022 End: 09-09-2022 Basic metabolic 2000 panel - Serum or Plasma BASIC METABOLIC PNL Lab Routine Coronary artery disease involving [place] coronary artery of [place] heart without angina pectoris Expected: 07/10/2022, Expires: 09/09/2022 [facility] Work Phone: Comment on above: Expected: 07/10/2022 , Expires: 09/09/2022 Start: 07-10-2022 End: 09-09-2022 Creatine kinase [Enzymatic activity/volume] in Serum or Plasma CK CREATINE KINASE Lab Routine Coronary artery disease involving [place] coronary artery of [place] heart without angina pectoris Expected: 07/10/2022, Expires: 09/09/2022 [facility] Work Phone: Comment on above: Expected: 07/10/2022 , Expires: 09/09/2022 Start: 07-10-2022 End: 09-09-2022 Hepatic function 2000 panel - Serum or Plasma HEPATIC FUNCTION PNL Lab Routine Coronary artery disease involving [place] coronary artery of [place] heart without angina pectoris Expected: 07/10/2022, Expires: 09/09/2022 [facility] Work Phone: Comment on above: Expected: 07/10/2022 , Expires: 09/09/2022 Start: 07-10-2022 End: 09-09-2022 Lipid 1996 panel - Serum or Plasma LIPID PANEL BASIC Lab Routine Coronary artery disease involving [place] coronary artery of [place] heart without angina pectoris Expected: 07/10/2022, Expires: 09/09/2022 [facility] Work Phone: Comment on above: Expected: 07/10/2022 , Expires: 09/09/2022 Start: 06-27-2022 Influenza vaccination [facility] Start: 05-03-2022 End: 07-03-2022 CK CREATINE KINASE CK CREATINE KINASE Lab Routine Coronary artery disease involving [place] coronary artery of [place] heart without angina pectoris NSTEMI (non-ST elevated myocardial infarction) (HCC) Mixed hyperlipidemia Expected: 05/03/2022, Expires: 07/03/2022 [facility] Work Phone: Comment on above: Expected: 05/03/2022 , Expires: 07/03/2022 Start: 05-03-2022 End: 07-03-2022 HEPATIC FUNCTION PNL HEPATIC FUNCTION PNL Lab Routine Coronary artery disease involving [place] coronary artery of [place] heart without angina pectoris NSTEMI (non-ST elevated myocardial infarction) (HCC) Mixed hyperlipidemia Expected: 05/03/2022, Expires: 07/03/2022 [facility] Work Phone: Comment on above: Expected: 05/03/2022 , Expires: 07/03/2022 Start: 05-03-2022 End: 07-03-2022 LIPID PANEL BASIC LIPID PANEL BASIC Lab Routine Coronary artery disease involving [place] coronary artery of [place] heart without angina pectoris NSTEMI (non-ST elevated myocardial infarction) (HCC) Mixed hyperlipidemia Expected: 05/03/2022, Expires: 07/03/2022 [facility] Work Phone: Comment on above: Expected: 05/03/2022 , Expires: 07/03/2022 Start: 10-27-2021 DEPRESSION ASSESSMENT DEPRESSION ASS ESSMENT [facility] Start: 06-27-2020 Influenza vaccination Flu vaccine (# 1) [place], [place] Start: 2019 [facility]-DNA[facility] Start: 2019 Colonoscopy COLONOSCOPY [facility] Start: 2019 COLORECTAL CANCER SCREENING COLORECTAL CANCER SCREENING [facility] Start: [address] COLONOGRAPHY [facility] Start: 2019 FECAL OCCULT BLOOD FECAL OCCULT BLOO D [facility] Start: 2019 Screening for malign ant neoplasm of colon [facility] Start: 2019 SIGMOIDOSCOPY SIGMOIDOSCOPY [facility] Start: 2014 Diabetes screen Diabetes screen [place], [place] Start: 2014 Lipid panel Lipid screen [place], [place] Start: 1993 DTaP/Tdap/Td vaccine (1 - Tdap) DTaP/Tdap/Td vaccine (1 - Tdap) [place], [place] Start: 1993 Hepatitis B Vaccine (1 of 3 - 19+ 3-dose series) Hepatitis B Vaccine (1 of 3 - 19+ 3-dose series) [facility] Start: 1993 Urine microalbumin profile [facility] Start: 1992 ANNUAL PCP TEAM ACCOUNT MANAGER EDUCATION GABRIEL DISEASE VISIT ANNUAL PCP TEAM CHRONIC DISEASE VISIT [facility] Start: 1992 BP CONTROLLED (<130/80) BP CONTROLLE D (<130/80) [facility] Start: 1992 HEPATITIS C SCREENING HEPATITIS C [facility] Start: 1992 Hepatitis C screening Hepatitis C [facility] Start: 1992 HIV SCREENING HIV SCREENING [facility] Start: 1992 HIV screening HIV Screening [facility] Start: 1989 HIV screening HIV screen [place], [place] Start: 1986 Adult depression screening assessment DEPRESSION SCREENING [facility] Start: 1980 PNEUMOCOCCAL (1 - PCV) PNEUMOCOCCAL (1 - PCV) [facility] Start: 1979 COVID-19 VACCINE (#1) COVID-19 VACCI NE (#1) [facility] Start: 1975 COVID-19 VACCINE (#1) COVID-19 VACCI NE (#1) [facility] Start: 1975 HEPATITIS B (1 of 3 - 3-dose series) HEPATITIS B (1 of 3 - 3-dose series) [facility] Start: 1975 Hepatitis B Vaccine (1 of 3 - 3-dose series) Hepatitis B Vaccine (1 of 3 - 3-dose series) [facility] End: 07-03-2020 COVID-19 [place], [place] Comment on above: One Time for 1 Occur rences starting 07/03/2020 until 07/03/2020 Once for 1 Occurrenc es starting 07/03/2020 until 07/03/2020 End: 07-10-2023 ECG COMPLETE ECG COMPLETE ECG Routine Coronary artery disease involving [place] coronary artery of [place] heart without angina pectoris 1 Occurrences starting 07/10/2022 until 07/10/2023 [facility] Work Phone: Comment on above: 1 Occurrences starti ng 07/10/2022 until 07/10/2023 ECG COMPLETE ECG COMPLETE ECG Routine Coronary artery disease involving [place] coronary artery of [place] heart without angina pectoris Ordered: 12/10/2023 [facility] Work Phone: Comment on above: Ordered: 12/10/2023 EKG 12 Lead EKG 12 Lead ECG STAT 07/03/2020 2:52 PM EDT [facility] Immunizations Immunization Date Immunization Notes Care Provider [facility] 11-20-2015 influenza, live, intranasal, quadrivalent Tyler Jaocbs MD Work Phone: [facility] 11-20-2015 influenza virus vacc ine, unspecified formulation Tyler Jacobs MD Work Phone: [facility] Payers Date Payer Category Payer Self-pay [id number] 2022 Unknown [id number] 2019 Unknown MMO MMO [employer] [id number] 2019-Present [phone] [address] [place] [address] PPO [id number] 2010 Unknown [id number] 2008 Unknown [id number] 1975 Unknown [id number] 1975 Unknown [id number] Unknown [id number] Social History Date Type Detail Facility Start: 07-03-2020 End: 07-10-2022 Tobacco smoking status NJIS Current every day smoker [facility] History of tobacco use Cigarette Smoker M [place], [place] Start: 07-03-2020 End: 06-03-2023 Cigarettes smoked current (pack per day) - Reported [place], [place] Start: 07-03-2020 End: 12-10-2023 Tobacco use and exposure Never used [place], [place] Start: 07-03-2020 Alcohol intake Current drinke r of alcohol (finding) [place], [place] Start: 07-03-2020 Alcohol Comment socially [place], [place] Start: 1975 Sex Assigned At Not on file [place], [place] Start: 02-19-2022 End: 07-10-2022 Exposure to SARS-CoV-2 (event) Not sure [place], [place] Start: 03-01-2022 End: 12-10-2023 Alcohol intake Current non-drinker of alcohol (finding) [facility] Start: 1975 Sex Assigned At Male [facility] Start: 09-30-2014 End: 09-30-2014 Tobacco smoking status NHIS Unknown if ever smoked [facility] Start: 06-03-2023 End: 12-10-2023 Tobacco use panel [facility] National Score (1-10 0), lower number is lower risk 62 [facility] Start: 06-01-2022 Gender identity Identifies as male gender (finding) [facility] Start: 03-27-2022 Sexual orientation Heterosexual (pelon cedillo) [facility] Start: 12-10-2023 Tobacco smoking stat us NHIS Ex-smoker [facility] History of tobacco use Current smoker [facility] Clinical Notes 03-01-2022 to 02-03-2024 Telephone Encounter - Lynn Cuello RN - 02/03/2024 10:46 AM Tyler Sierra MD - 12/10/2023 9:38 AM ESTTelephone Encounter - Dominique Souza LPN - 07/03/2023 10:04 AM EDTPatient Instructions Note Date & Type Note Facility 02-03-2024 Miscellaneous Notes Received outside medical records from [facility] to the attention of Dr. Jacobs. Placed in Dr. Jacobs's [place] inbox to review. documented in this encounter [facility] 12-10-2023 Note HNO ID: [id number] Author: TYLER JACOBS MD Service: ? Author Type: Physician Type: Progress Notes Filed: 12/10/2023 10:01 Note Text: Chief Complaint: Patient presents with: Follow Up: Coronary Artery Disease History of Present Illness: Carlotta Petersen is a 47 year old male who presents for a follow up on coronary artery disease. Patient has a history of essential hypertension dyslipidemia tobacco abuse. He was admitted to the hospital in February 2022 with non-STEMI. Troponin peaked at 1152. He underwent PCI of circumflex artery. He was started on dual antiplatelet therapy beta-blockers CATIA inhibitor's and statins. He had an initial post hospital discharge follow-up visit with the nurse practitioner at [facility] but as he lives closer to the [place] office he wanted to transfer his care over [...] erectile dysfunction for the last 1 year. 12/10/2023: Patient said he forgot to take his medications for 4 days back in September when noticed he had a few episodes of sharp stabbing type of discomfort in the left lateral chest wall lasting only for few seconds. When he came back home and started taking his medications again his symptoms did not recur. Patient otherwise has done well since his last office visit. He denies any chest pain or shortness of breath on exertion. Denies any palpitations lightheadedness syncope orthopnea PND or leg edema. PAST MEDICAL HISTORY Diagnosis Date Depression Generalized anxiety disorder Hypertension Irregular heart beat Other hyperlipidemia TIA (transient ischemic attack) PAST SURGICAL HISTORY Procedure Laterality Date TONSILLECTOMY HX FAMILY HISTORY Problem Relation Age of Onset Stroke Mother Coronary Artery Disease Father Social History Tobacco Use Smoking status: Former Packs/day: 1.00 Years: 17.00 Additional pack years: 0.00 Total pack years: 17.00 Types: Cigarettes Smokeless tobacco: Never Vaping Use Vaping Use: Some days Substance Use Topics Alcohol use: No Drug use: No Current Outpatient Medications Medication Sig varenicline tartrate (CHANTIX ORAL) Take by mouth. sertraline (ZOLOFT) 25 mg tablet Take 1 tablet by mouth every afternoon. nebivolol (BYSTOLIC) 10 mg tablet TAKE 1 TABLET BY MOUTH EVERY DAY lisinopril (ZESTRIL) 40 mg tablet Take 1 tablet by mouth once daily. atorvastatin (LIPITOR) 80 mg tablet Take 1 tablet by mouth daily at bedtime. amLODIPine (NORVASC) 10 mg tablet Take 1 tablet by mouth once daily. ezetimibe (ZETIA) 10 mg tablet Take 1 tablet by mouth once daily. aspirin 81 mg chewable tablet Take 1 tablet by mouth once daily. nitroglycerin sublingual (NITROQUICK) 0.4 mg SL tablet Dissolve 1 tablet under the tongue every 5 minutes as needed for chest pain. varenicline (CHANTIX STARTING MONTH BOX) 0.5 mg (11)- 1 mg (42) tablet Take 0.5 mg by mouth once daily on Days 1 through 3, THEN 0.5 mg twice daily on Days 4 through 7, THEN 1 mg twice daily on Day 8 and thereafter (Patient not taking: Reported on 07/10/2022) ticagrelor (BRILINTA) 90 mg tablet Take 1 tablet by mouth twice daily. No current facility-administered medications for this visit. [...] necessary, the PFSH and ROS obtained by ot (more content not included)... [facility] 12-10-2023 History of Presen t illness Narrative Chief Complaint: Patient presents with: Follow Up: Coronary Artery Disease History of Present Illness: Carlotta Petersen is a 47 year old male who presents for a follow up on coronary artery disease. Patient has a history of essential hypertension dyslipidemia tobacco abuse. He was admitted to the hospital in February 2022 with non-STEMI. Troponin peaked at 1152. He underwent PCI of circumflex artery. He was started on dual antiplatelet therapy beta-blockers CATIA inhibitor's and statins. He had an initial post hospital discharge follow-up visit with the nurse practitioner at [facility] but as he lives closer to the [facility] he wanted to transfer his care over [...] erectile dysfunction for the last 1 year. 12/10/2023: Patient said he forgot to take his medications for 4 days back in September when noticed he had a few episodes of sharp stabbing type of discomfort in the left lateral chest wall lasting only for few seconds. When he came back home and started taking his medications again his symptoms did not recur. Patient otherwise has done well since his last office visit. He denies any chest pain or shortness of breath on exertion. Denies any palpitations lightheadedness syncope orthopnea PND or leg edema. PAST MEDICAL HISTORY Diagnosis Date Depression Generalized anxiety disorder Hypertension Irregular heart beat Other hyperlipidemia TIA (transient ischemic attack) PAST SURGICAL HISTORY Procedure Laterality Date TONSILLECTOMY HX FAMILY HISTORY Problem Relation Age of Onset Stroke Mother Coronary Artery Disease Father Social History Tobacco Use Smoking status: Former Packs/day: 1.00 Years: 17.00 Additional pack years: 0.00 Total pack years: 17.00 Types: Cigarettes Smokeless tobacco: Never Vaping Use Vaping Use: Some days Substance Use Topics Alcohol use: No Drug use: No Current Outpatient Medications Medication Sig varenicline tartrate (CHANTIX ORAL) Take by mouth. sertraline (ZOLOFT) 25 mg tablet Take 1 tablet by mouth every afternoon. nebivolol (BYSTOLIC) 10 mg tablet TAKE 1 TABLET BY MOUTH EVERY DAY lisinopril (ZESTRIL) 40 mg tablet Take 1 tablet by mouth once daily. atorvastatin (LIPITOR) 80 mg tablet Take 1 tablet by mouth daily at bedtime. amLODIPine (NORVASC) 10 mg tablet Take 1 tablet by mouth once daily. ezetimibe (ZETIA) 10 mg tablet Take 1 tablet by mouth once daily. aspirin 81 mg chewable tablet Take 1 tablet by mouth once daily. nitroglycerin sublingual (NITROQUICK) 0.4 mg SL tablet Dissolve 1 tablet under the tongue every 5 minutes as needed for chest pain. varenicline (CHANTIX STARTING MONTH BOX) 0.5 mg (11)- 1 mg (42) tablet Take 0.5 mg by mouth once daily on Days 1 through 3, THEN 0.5 mg twice daily on Days 4 through 7, THEN 1 mg twice daily on Day 8 and thereafter (Patient not taking: Reported on 07/10/2022) ticagrelor (BRILINTA) 90 mg tablet Take 1 tablet by mouth twice daily. No current facility-administered medications for this visit. [...] ROS obtained by others. Physical Examination: BP 144/87 Pulse 75 Ht 6' 1 (1.85m) Wt 227 lb 1.2 oz (103.0kg) SpO2 96% BMI 29.97 kg/(m^2). General: Appears well in no acute [...] and affect Cardiac Testing and Procedures: Electrocardiogram: 12/10/2023: Normal sinus rhythm at 68 bpm. 07/10/2022: Normal sinus rhythm at 68 bpm. [...] Electrocardiogram. ASSESSMENT/PLAN: 1. Coronary artery disease involving [place] coronary artery of [place] heart without angina pectoris - ICD9: 414.01, ICD10: I25.10 Patient had a few episodes of sharp stabbing pain lasting for a few seconds back in September. He said he had forgotten to take his medications as he was out of town. Once he started taking his medications again he did not have any recurrence of symptoms. Denies any anginal symptoms. If he does have any chest pain which last longer I will order a stress test. Otherwise patient has made lifestyle adjustments and I have congratulated him for it. He is to continue aspirin beta-blockers calcium channel blockers high intensity statins and Zetia. Annual lipid panel being monitored by his PCP. I will try and get a copy of that report from his PCPs office. Goal LDL is 70. 2. Smoker Patient said he is now on Chantix and is given up smoking. I have congratulated him on this as well. 3. Lifestyle modification I've encouraged the patient to eat a heart healthy diet including laying off on processed meat, red meat and eating lean meat, fish, vegetables, fruits, legumes, nuts, fruits and using extra Lapel olive oil in his diet. I've also encouraged to do daily exercises to try and lose weight. Patient says he is eating less eggs and less processed meat now. He has also given up drinking diet Coke but is now drinking sweet tea instead. I have asked him to lay off of the sugar and he says that the tea is brewed at home. 4. Essential hypertension The patient keep a log of his blood pressure readings at home. He said the erectile dysfunction is better on Bystolic as compared to Coreg. If blood pressures persistently above 130/80 can increase Bystolic to 20 mg daily. Tyler Jacobs MD documented in this encounter [facility] 07-03-2023 Miscellaneous Notes Patient's request for medication is as follows: Requested Prescriptions Pending Prescriptions Disp Refills nebivolol (BYSTOLIC) 10 mg tablet [Pharmacy Med Name: NEBIVOLOL 10 MG TABLET] 90 tablet 3 Sig: TAKE 1 TABLET BY MOUTH EVERY DAY Last seen 06/03/2023. Recall scheduled for 12/04/2023. Prescription(s) as above. Please process accordingly. Dominique Souza LPN documented in this encounter [facility] 06-03-2023 Note HNO ID: [id number] Author: Tyler Jacobs MD Service: ? Author Type: Physician Type: Progress Notes Filed: 06/03/2023 11:07 AM Note Text: Chief Complaint: Patient presents with: Cardiology Follow Up : HTN History of Present Illness: Carlotta Petersen is a 47 year old male who presents for a follow up on coronary artery disease. Patient has a history of essential hypertension dyslipidemia tobacco abuse. He was admitted to the hospital in February 2022 with non-STEMI. Troponin peaked at 1152. He underwent PCI of circumflex artery. He was started on dual antiplatelet therapy beta-blockers CATIA inhibitor's and statins. He had an initial post hospital discharge follow-up visit with the nurse practitioner at [facility] but as he lives closer to the [facility] he wanted to transfer his care over [...] 03/01/2022: Normal sinu (more content not included)... [facility] 06-03-2023 History of Presen t illness Narrative Chief Complaint: Patient presents with: Cardiology Follow Up : HTN History of Present Illness: Carlotta Petersen is a 47 year old male who presents for a follow up on coronary artery disease. Patient has a history of essential hypertension dyslipidemia tobacco abuse. He was admitted to the hospital in February 2022 with non-STEMI. Troponin peaked at 1152. He underwent PCI of circumflex artery. He was started on dual antiplatelet therapy beta-blockers CATIA inhibitor's and statins. He had an initial post hospital discharge follow-up visit with the nurse practitioner at [facility] but as he lives closer to the [facility] he wanted to transfer his care over [...] Electrocardiogram. ASSESSMENT/PLAN: 1. Coronary artery disease involving [place] coronary artery of [place] heart without angina pectoris - ICD9: 414.01, [...] fruits, legumes, nuts, fruits and using extra Lapel olive oil in his diet. I've also [...] Bystolic dose to 20 mg daily. Tyler Jaocbs MD documented in this encounter [facility] 06-03-2023 Nurse Note Patient has no cardiac complaints today. Zully Laguerre CMA documented in this encounter [facility] 01-28-2023 Miscellaneous Notes Lvm for pt to call back to schedule his overdue 6 month f/u. Thanks Vianca documented in this encounter [facility] 01-27-2023 Miscellaneous Notes Last seen 07/10/2022. Patient instructed to follow up in 6 months. Please call patient with over due appointment. Dominique Souza LPN documented in this encounter [facility] 01-27-2023 Miscellaneous Notes Patient's request for medication [...] Prescription(s) as above. Please process accordingly. Dominique Souza LPN documented in this encounter [facility] 10-18-2022 Note ED Nursing Discharge Summary Entered On: 10/18/2022 8:27 EST Performed On: 10/18/2022 8:21 EST by Estrella Patel RN [facility] [id number] ED IV's : No IV ED IV Site Assessment : No IV ED Vitals Completed : Yes ED Final Assessment Completed : N/A ED Progress Note Completed : Yes Complete all PRN/Pain response forms? : N/A ED Disassociate Patient from Monitor : N/A Updated Depart Time : Yes ED Belongings sent w patient [id number] : Not applicable Estrella Patel RN 10/18/2022 8:26 EST Education Instructions given to : Patient TeachBack Methodology : TeachBack, Explanation, Printed Material Barriers to Learning : None evident Estrella Patel RN - 10/18/2022 8:26 EST Post-Hospital Education Adult Grid Plan of Care : Verbalizes understanding Estrella Patel RN - 10/18/2022 8:26 EST ED Assistance Summary Assistance Given? : No Estrella Patel RN - 10/18/2022 8:26 EST [facility] 10-18-2022 Note Patient presents to the ED via triage for evaluation of left khan hematoma s/p fall. Patient states he slid on ice. Hx of [place] this summer 2021. States takes Brilinta and Aspirin and concerned for a blood clot. States throbbing pain to site. Patient able to walk on leg with steady gait. +2 pedal pulse to left leg. Good cap refill. Patient had his last tetanus this Summer. Denies LOC or head injury. Small abrasion to left khan hematoma. Cleaned with normal saline and applied gauze and catia wrap. Ice applied to site. Alert and oriented x3. All questions answered. No other needs at this time. Patient given discharge instructions and verbalizes understanding. Patient aware of follow up care and when to return to the ED. Patient aware of RICE. Medicated per orders. All questions answered. To lobby with steady gait with all belongings. [facility] 09-30-2022 Miscellaneous Notes Patient's request for medication [...] Nandini Campuzano LPN documented in this encounter [facility] 07-11-2022 Miscellaneous Notes Most recent lab results faxed to [facility] at pt request. Notified pt via [employer]. documented in this encounter [facility] 07-10-2022 History of Presen t illness Narrative Chief Complaint: Patient presents with: CARD New Patient Consult History of Present Illness: Carlotta Petersen is a 47 year old male who presents for a follow up on coronary artery disease. Patient has a history of essential hypertension dyslipidemia tobacco abuse. He was admitted to the hospital in February 2022 with non-STEMI. Troponin peaked at 1152. He underwent PCI of circumflex artery. He was started on dual antiplatelet therapy beta-blockers CATIA inhibitor's and statins. He had an initial post hospital discharge follow-up visit with the nurse practitioner at [facility] but as he lives closer to the [facility] he wanted to transfer his care over [...] Electrocardiogram. ASSESSMENT/PLAN: 1. Coronary artery disease involving [place] coronary artery of [place] heart without angina pectoris - ICD9: 414.01, [...] fruits, legumes, nuts, fruits and using extra Lapel olive oil in his diet. I've also [...] at the level of the heart. Tyler Jacobs MD documented in this encounter [facility] 07-10-2022 Instructions Tyler Jacobs MD - 07/10/2022 9:35 AM EDT Stop Imdur and start Norvasc 10mg daily documented in this encounter [facility] 04-03-2022 Miscellaneous Notes Patient calling after his Hospital Follow up with Jenifer Mcneill APRN.JOSSELINE. Patient stated that he was told by [...] location and I will send him some [facility] walk in labs he can go to. Thank you!!! documented in this encounter [facility] 04-03-2022 History of Presen t illness Narrative Chief Complaint: Patient presents with: [facility] Follow Up: HLD History of Present Illness: Carlotta Petersen is a 46 year old male with history of hypertension hyperlipidemia tobacco abuse, TIA, h/o Substance use Presented to [facility] with complaints of intermittent chest pressure diaphoresis and fatigue. 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 Blood pressure was elevated at 170/110 [...] on aspirin Brilinta and statin therapy with beta-bernice and CATIA inhibitor. He presents today in follow-up. He [...] the circumflex Recommendations: 1. Non-ST segment elevated [place]-status post PTCA drug-eluting stent to the circumflex continue with aspirin and Brilinta uninterrupted for a years period of time. Will require decrease dose of Brilinta to 60 mg twice daily after completing a years worth due to non-ST segment elevated [place]. Continue beta-bernice and Lipitor therapy. 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 2. Hypertension blood pressure elevated 148/94 we will increase carvedilol to 25 mg twice daily. Continue with beta as well and CATIA inhibitor therapy. 2 g sodium diet. 3. [...] his insurance he is willing to try [id number] expense. 5. Mild compensated systolic heart failure-EF about 52%. Remains on beta-bernice as well as CATIA inhibitor he appears euvolemic on exam showing no clinical signs of decompensated heart failure. In summary Mr. Petersen presents in a status post hospital visit after sustaining a non-ST segment elevated [place]. He did undergo PCI and stenting to the circumflex he has nonobstructive disease in the RCA. He will continue with medical therapy. We need better control of blood pressure I have increased carvedilol he will follow-up in 3 months in the [place] office with Dr. Jacobs as this is closer to patient's home in [place] documented in this encounter [facility] 04-03-2022 Instructions Jenifer Mcneill APRN.CNP - 04/03/2022 11:30 AM EDT Images [...] the health of your heart. Developed by [employer]. Published by [employer]. Copyright 2014 [employer] and/or one of its subsidiaries. All rights [...] may be found in stick margarine, shortening, Kiswahili fries, cookies, crackers, and bakery goods. If the food label has the words partially hydrogenated, the product probably has trans fat. Limit [...] less fried food and junk food, like [place]isw[place]ili fries, chips, cookies, crackers, and doughnuts. Choose [...] healthcare provider for a referral to a radio repair teacher to learn more about eating healthy. Lose [...] it just once a year. Developed by [employer]. Published by [employer]. Copyright 2014 [employer] and/or one of its subsidiaries. All rights [...] resting blood pressure ranges up to 120/80 (120 over 80). The first number (120 in this example) [...] risk for high blood pressure. Developed by [employer]. Published by [employer]. Copyright 2014 [employer] and/or one of its subsidiaries. All rights reserved. documented in this encounter [facility] 04-03-2022 Nurse Note Patient c/o intermittent SOB. documented in this encounter [facility] 03-07-2022 Miscellaneous Notes SURVEY INFORMATION Medical/Nurse Forestry Patrolman: Tonie Anand 1. Your discharge instructions are [...] (Standard Question) No documented in this encounter [facility] 03-01-2022 History of Past i llness Narrative Problem Noted Date Resolved Date ACS (acute [...] of this encounter (statuses as of 03/07/2022) [facility] History of Past illness Narrative* Problem Noted [...] of this encounter (statuses as of 04/03/2022) [facility] History of Past illness Narrative* Problem Noted [...] of this encounter (statuses as of 04/04/2022) [facility] History of Past illness Narrative* Problem Noted [...] of this encounter (statuses as of 07/10/2022) [facility] History of Past illness Narrative* Problem Noted [...] of this encounter (statuses as of 07/10/2022) [facility] History of Past illness Narrative* Problem Noted [...] of this encounter (statuses as of 07/11/2022) [facility] History of Past illness Narrative* Problem Noted Date Resolved Date ACS (acute coronary syndrome) 03/01/2022 TIA (transient ischemic attack) 09/11/2015 03/05/2022 Overview: In the setting of HTN, HL and active smoking.Weakness resolved in 5 mts with no deficit.Previous Echo in 2013 with out any PFO and valvular abnormalities.No [...] of this encounter (statuses as of 07/11/2022) [facility] History of Past illness Narrative* Problem Noted [...] of this encounter (statuses as of 09/30/2022) [facility] History of Past illness Narrative* Problem Noted [...] of this encounter (statuses as of 01/28/2023) [facility] History of Past illness Narrative* Problem Noted Date Resolved Date ACS (acute coronary syndrome) 03/01/2022 TIA (transient ischemic attack) 09/11/2015 03/05/2022 Overview: In the setting of HTN, HL and active smoking.Weakness resolved in 5 mts with no deficit.Previous Echo in 2013 with out any PFO and valvular abnormalities.No [...] of this encounter (statuses as of 01/28/2023) [facility] History of Past illness Narrative* Problem Noted [...] of this encounter (statuses as of 06/03/2023) [facility] of Past illness Narrative* Problem Noted [...] of this encounter (statuses as of 07/03/2023) [facility] of Past illness Narrative* Problem Noted Date Diagnosed Date Resolved Date ACS (acute coronary syndrome) 03/01/2022 03/05/2022 TIA (transient ischemic attack) 09/11/2015 03/05/2022 Overview: In the setting of HTN, HL and active smoking.Weakness resolved in 5 mts with no deficit.Previous Echo in 2013 with out any PFO and valvular abnormalities.No history of A.fib. ABCD 2 ( BP>140 - 1, Unilateral weakness - 2) score of 3 (1% risk of stroke in 72 hrs).Elevated cholesterol on lipid panel with normal MRI brain and MRA.Carotid doppler negative Plan: - follow Neurology recs - continue aspirin 81 mg and atorvastatin 40 mg - follow echo HTN (hypertension) 09/11/2015 2 Overview: Continue home dose of Lisinopril 5 [...] as of this encounter (statuses as of 12/10/2023) [facility] History of Past illness Narrative* Problem Noted [...] mg - follow echo HTN (hypertension) 09/11/2015 2 Overview: Continue home dose of Lisinopril 5 [...] as of this encounter (statuses as of 02/04/2024) [facility] note* Diagnosis Coronary artery disease involving [place] coronary artery of [place] heart without angina pectoris- Primary NSTEMI (non-ST elevated myocardial infarction) (HCC) Acute myocardial infarction, subendocardial infarction, episode of care unspecified Essential hypertension Unspecified essential hypertension Mixed hyperlipidemia Tobacco abuse Tobacco use disorder Primary hypertension Unspecified essential hypertension Other hyperlipidemia documented in this encounter [facility] noteNo assessment information availableWSycamore Medical Center Work Phone: Evaluation note* Diagnosis Coronary artery disease involving [place] coronary artery of [place] heart without angina pectoris- Primary Primary hypertension Unspecified essential hypertension Smoker Tobacco use disorder documented in this encounter [facility] note* Diagnosis Coronary artery disease involving [place] coronary artery of [place] heart without angina pectoris- Primary Smoker Tobacco use disorder Primary hypertension Unspecified essential hypertension History of coronary artery stent placement Postsurgical percutaneous transluminal coronary angioplasty status documented in this encounter [facility] note* Diagnosis Coronary artery disease involving [place] coronary artery of [place] heart without angina pectoris- Primary History of coronary artery stent placement Postsurgical percutaneous transluminal coronary angioplasty status Primary hypertension Unspecified essential hypertension Smoker Tobacco use disorder documented in this encounter [facility] for referral (narrative)* Outpatient Procedure (Routine) - Closed Specialty Diagnoses / Procedures Referred By Contac t [facility] Diagnoses Coronary artery disease involving [place] coronary artery of [place] heart without angina pectoris Procedures ECG COMPLETE ECG ROUTINE ECG W/LEAST 12 LDS W/I&R Tyler Jacobs MD [address] [place] [address] [facility] [place] [address] [place] [address] Referral ID Status Reason Start Date Expiration Date V isits Requested Visits Authorized [id number] Closed Auto-Generate d Referral 07/10/2022 07/10/2023 [facility]patient Procedure (Routine) - Pending Review Specialty Diagnoses / Procedures Referred By Kacie carrasco Referred To [facility] Diagnoses Coronary artery disease involving [place] coronary artery of [place] heart without angina pectoris Procedures ECG COMPLETE ECG ROUTINE ECG W/LEAST 12 LDS W/I&R Tyler Jacobs MD [address] [place] [address] [facility] [place] [address] [place] [address] Referral ID Status Reason Start Date Expiration Date Visits Requested Visits Authorized [id number] Pending Review Auto-Generat ed Referral 12/10/2023 12/08/2024 1 1 [facility] Discharge Instructions * Attachments The following attachments cannot be sent through Care Everywhere. 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 states he also vomited twice this AM Reason Comments Follow Up Phone Call All Clear Reason Comments CARD Hospital Follow Up HLD Reason Comments Patient Question Poker Dealer - Other Appointment Reason Comments CARD New Patient Consult Reason Comments Orders Reason Comments Results, Lab Sent to [facility] Reason Comments Refill Request Reason Comments Appointment Reason Comments Cardiology Follow Up HTN Reason Comments Follow Up Coronary Artery Dise ase Reason Comments Received Outside Medical Records [facility] (unrecognized sect ion and content) No Status Records FoundNo Status Records FoundNo Status Records FoundNo Status Records FoundNo Status Records Found INFORMATION SOURCE (unrecogn ized section and content) DATE CREATED AUTHOR 07/05/2020 [facility] DATE CREATED AUTHOR AUTHOR'S ORGANIZ ATION 10/20/2022 [facility] DATE CREATED AUTHOR AUTHOR'S ORGANIZ ATION 06/03/2023 [facility] DATE CREATED AUTHOR AUTHOR'S ORGANIZ ATION 11/26/2023 [facility] DATE CREATED AUTHOR AUTHOR'S ORGANIZ ATION 02/04/2024 [facility] Source Comments (unrecognize d section and content) In the event this informatio n is protected by the Federal Confidentiality of Alcohol and Drug Abuse Patient Records regulations: The Federal rules restrict any use of the information to criminally investigate or prosecute any alcohol or drug abuse patient.[facility] the event this information is protected by the Federal Confidentiality of Alcohol and Drug Abuse Patient Records regulations: The Federal rules restrict any use of the information to criminally investigate or prosecute any alcohol or drug abuse patient.[facility] Hospital[facility] the event this information is protected by the Federal Confidentiality of Alcohol and Drug Abuse Patient Records regulations: The Federal rules restrict any use of the information to criminally investigate or prosecute any alcohol or drug abuse patient.[facility] the event this information is protected by the Federal Confidentiality of Alcohol and Drug Abuse Patient Records regulations: The Federal rules restrict any use of the information to criminally investigate or prosecute any alcohol or drug abuse patient.[facility] the event this information is protected by the Federal Confidentiality of Alcohol and Drug Abuse Patient Records regulations: The Federal rules restrict any use of the information to criminally investigate or prosecute any alcohol or drug abuse patient.[facility] Hospital[facility] the event this information is protected by the Federal Confidentiality of Alcohol and Drug Abuse Patient Records regulations: The Federal rules restrict any use of the information to criminally investigate or prosecute any alcohol or drug abuse patient.[facility] Hospital[facility] the event this information is protected by the Federal Confidentiality of Alcohol and Drug Abuse Patient Records regulations: The Federal rules restrict any use of the information to criminally investigate or prosecute any alcohol or drug abuse patient.[facility] Hospital[facility] the event this information is protected by the Federal Confidentiality of Alcohol and Drug Abuse Patient Records regulations: The Federal rules restrict any use of the information to criminally investigate or prosecute any alcohol or drug abuse patient.[facility] Hospital[facility] the event this information is protected by the Federal Confidentiality of Alcohol and Drug Abuse Patient Records regulations: The Federal rules restrict any use of the information to criminally investigate or prosecute any alcohol or drug abuse patient.[facility] Hospital[facility] the event this information is protected by the Federal Confidentiality of Alcohol and Drug Abuse Patient Records regulations: The Federal rules restrict any use of the information to criminally investigate or prosecute any alcohol or drug abuse patient.[facility] HospitalIn the event this information is protected by the Federal Confidentiality of Alcohol and Drug Abuse Patient Records regulations: The Federal rules restrict any use of the information to criminally investigate or prosecute any alcohol or drug abuse patient.[facility] HospitalIn the event this information is protected by the Federal Confidentiality of Alcohol and Drug Abuse Patient Records regulations: The Federal rules restrict any use of the information to criminally investigate or prosecute any alcohol or drug abuse patient.[facility] HospitalIn the event this information is protected by the Federal Confidentiality of Alcohol and Drug Abuse Patient Records regulations: The Federal rules restrict any use of the information to criminally investigate or prosecute any alcohol or drug abuse patient.[facility] HospitalIn the event this information is protected by the Federal Confidentiality of Alcohol and Drug Abuse Patient Records regulations: The Federal rules restrict any use of the information to criminally investigate or prosecute any alcohol or drug abuse patient.[facility] HospitalIn the event this information is protected by the Federal Confidentiality of Alcohol and Drug Abuse Patient Records regulations: The Federal rules restrict any use of the information to criminally investigate or prosecute any alcohol or drug abuse patient.[facility] HospitalIn the event this information is protected by the Federal Confidentiality of Alcohol and Drug Abuse Patient Records regulations: The Federal rules restrict any use of the information to criminally investigate or prosecute any alcohol or drug abuse patient.[facility] Care Teams (unrecognized sec tion and content) Data Security Administrator Relationship Specialty Start Date End Date Roger Lomeli MD PCP - [facility] Family Practice 09/12/15 Data Security Administrator Relationship Specialty Start Date End Date Roger Lomeli MD PCP - General Family Practice 09/12/15 Data Security Administrator Relationship Specialty Start Date End Date Roger Lomeli MD PCP - General Family Practice 09/12/15 Data Security Administrator Relationship Specialty Start Date End Date Roger Lomeli MD PCP - General Family Practice 09/12/15 Data Security Administrator Relationship Specialty Start Date End Date Roger Lomeli MD PCP - General Family Practice 09/12/15 Data Security Administrator Relationship Specialty Start Date End Date Roger Lomeli MD PCP - General Family Practice 09/12/15 Data Security Administrator Relationship Specialty Start Date End Date Roger Lomeli MD PCP - General Family Practice 09/12/15 Data Security Administrator Relationship Specialty Start Date End Date Roger Lomeli MD PCP - General Family Medicine 09/12/15 Data Security Administrator Relationship Specialty Start Date End Date Roger Lomeli MD PCP - General Family Medicine 09/12/15 Data Security Administrator Relationship Specialty Start Date End Date Roger Lomeli MD PCP - [facility] 09/12/15 Data Security Administrator Relationship Specialty Start Date End Date Roger Lomeli MD PCP - [facility] 09/12/15 Data Security Administrator Relationship Specialty Start Date End Date Roger Lomeli MD PCP - [facility] 09/12/15 Team Status: Active Member Role Status Dates Dr. Roger Lomeli MD Family Provider Active Dr. Roger Lomeli MD Primary Care Provider Active Team Status: Inactive Member Role Status Dates Dr. Roger Lomeli MD Primary Care Provi kamila, Attending Provider, Referring Provider Active Data Security Administrator Relationship Specialty Start Date End Date Roger Lomeli MD PCP - [facility] 09/12/15 Goals (unrecognized section and content) Goals may be documented in a n alternate sectionGoals may be documented in an alternate sectionGoals may be documented in an alternate section FOR RECORDS PERTAINING TO PATIENTS WHO ARE [...] BE BASED ON THE PRIMARY CLINICAL RECORDS. [facility] [employer] [facility]. provides no warranty or guarantee of the accuracy or completeness of information in this document.
[2025-10-22 02:16] LABS: Differential Comment SCANNED; Reactive Lymphocyte 2+
[2025-10-22 02:17] LABS: D-Dimer Quantitative (DVT/PE) 0.33 FEU/ug/m (0.27-0.49)
[2025-10-22 02:35] LABS: Anion Gap 11 (7-18); BUN 18 mg/dL (4-19); BUN/Creat Ratio 21.2 RATIO (10-20); Calcium,Total 9.0 mg/dL (7.6-11.0); Carbon Dioxide 25.5 mmol/L (20.0-29.0); Chloride 107 mmol/L (96-106); Estimated Creatinine Clearance 129.98 ml/min (50-250); Glucose 138 mg/dL (70-99); Potassium 3.8 mmol/L (3.5-5.1); Pro- Brain NATRIURETIC PEPTIDE 80 pg/mL (<=900); Troponin T High Sensitivity 6 ng/L (<=22)
[2025-10-22 02:40] VITALS: BP 116/71; PULSE 69; RESP 18; O2SAT 96
--- NOTE | 2025-10-22 02:44 | ED.VIS.CHEST ---
HPI History of Present Illness Chief Complaint: Chest Pain Narrative Narrative: Patient was seen and examined after presenting to ED for chest pain patient has a history of an AZ had a stent before he states that the only symptom he had with his first AZ was that he became very diaphoretic he had no chest pain no shortness of breath but it turns out he had an AZ and required a stent patient states that he did take nitro and it seemed to improve his symptoms. PFSH PFS Medical History HTN (hypertension) TIA (transient ischemic attack) Heart attack Home Medications ?Medication ?Instructions ?Recorded ?Last Taken ?Type amlodipine 10 mg tablet 10 mg PO DAILY 10/22/25 Unknown History aspirin 81 mg tablet,delayed 81 mg PO DAILY 10/22/25 Unknown History release (Adult Low Dose Aspirin) carvedilol 25 mg tablet 25 mg PO BID 10/22/25 Unknown History lisinopril 40 mg tablet 40 mg PO DAILY 10/22/25 Unknown History nebivolol 10 mg tablet 10 mg PO DAILY 10/22/25 Unknown History Allergy/AdvReac Type Severity Reaction Status Date / Time azithromycin Allergy Severe Anaphylaxis Verified 10/22/25 01:44 Surgical History Hx of tonsillectomy History of heart artery stent Social History Smoking Status: Former smoker ROS ROS ED ROS Narrative Pertinent Positives: Chest pain shortness of breath history of AZ recently quit smoking in the last 2 weeks Pertinent Negatives: Fevers chills vomiting diarrhea black or bloody stools use of anticoagulation The remainder of review of systems negative unless otherwise stated in the HPI above. Systems reviewed including constitutional, psychiatric, cardiovascular, respiratory, integument, HENT, gastrointestinal. EXAM Physical Exam Narrative Exam Narrative: Afebrile hemodynamically stable does not appear toxic or in distress normocephalic atraumatic he has no reproducible pain on palpation of his chest no crepitus no vesicular lesions or redness. Normal heart and lung sounds. No positional changes no pericardial friction rub. Abdomen is soft nontender nondistended no palpable pulsatile mass. He has intact and equal MSPs in all of his extremities no lower extremity edema or calf tenderness. Const Vital Signs: 10/22/25 01:42 10/22/25 01:42 10/22/25 01:52 Temperature 97.8 F Temperature Source Oral Pulse Rate 80 Respiratory Rate 19 H Respiratory Effort Normal Blood Pressure 128/92 H Blood Pressure Mean 104 Pulse Ox 99 Oxygen Delivery Method Room Air Room Air 10/22/25 02:40 10/22/25 03:00 10/22/25 04:00 Temperature Temperature Source Pulse Rate 69 76 70 Respiratory Rate 18 18 16 Respiratory Effort Blood Pressure 116/71 92/55 L 108/75 Blood Pressure Mean 86 67 86 Pulse Ox 96 94 98 Oxygen Delivery Method Room Air Room Air 10/22/25 04:30 Temperature 97.8 F Temperature Source Pulse Rate 71 Respiratory Rate 18 Respiratory Effort Blood Pressure 123/92 H Blood Pressure Mean 102 Pulse Ox 98 Oxygen Delivery Method Heart Score History: Slightly/Non-Suspicious ECG: Normal Age: >45 - <65 years Risk Factors: >/= 3 Risk Factors or History of CAD Troponin: </= Normal Limit Score: 3 MDM MDM MDM Narrative Medical decision making narrative: Nursing notes, triage notes, available previous documentation, and vital signs were reviewed. Any discrepancies noted were addressed. Differential Diagnoses: Need to consider this as possibly another atypical presentation for ACS for him lower suspicion for PE or aortic etiology low suspicion for an infectious related cause Interventions: Aspirin GI cocktail Fluids Given: 1 L normal saline Labs Reviewed: Some very minimal leukocytosis of 11.1 hemoglobin is 14.7 platelets are 306 no coagulopathy his D-dimer was 0.33 no significant electrolyte abnormality or renal insufficiency initial troponin is 6 proBNP is 80 delta troponin is pending. Imaging Reviewed: Personally reviewed and interpreted by me: Chest x-ray no pneumonia edema widened mediastinum or pneumothoraces. EKG: I do not see evidence of ACS. No evidence of prolonged QT syndrome. No evidence of AV Block. No short VT intervals, wide QRS, or Delta waves indicative of WPW. No evidence of dagger-like q waves or LVH indicative of Hypertrophic Cardiomyopathy. No evidence of Brugada Syndrome. EKG interpretation is noted and agreed to in the EMR. The interpretation of this patient's EKG contributed directly to the care and management of this patient. Previous Documentation Reviewed: None available or applicable at this time. ED Course: Patient presenting with chest pain as described above seems like it is more of an atypical presentation there is no exertional component to it he has had atypical presentations in the past but it resulted in him having a STEMI in which he ended up getting a stent for he also has history of TIAs patient does have risk factors heart score however is 3. 0424: Delta troponin came back at less than 6. We will provide the patient with a GI cocktail as he started having heartburn-like sensation repeat EKG was also performed Based off my review of this that EKG is sinus rhythm rate of [address] segment elevation. 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 They would like to go I believe he is stable for discharge return precautions follow-up recommendations provided he will be discharged This note was made utilizing voice recognition software. All attempts were made to correct spelling or other errors prior to note completion. However, due to the fast-paced nature of emergency medicine, some errors may still be present. Lab Data Labs: Laboratory Results - last 24 hr 10/22/25 10/22/25 01:50 03:50 WBC 11.1 H RBC 4.73 Hgb 14.7 Hct 43.9 MCV 92.8 MCH 31.1 MCHC 33.5 RDW Std Deviation 43.2 RDW Coeff of Radha 12.6 Plt Count 306 MPV 9.0 Immature Gran % (Auto) 0.400 Neut % (Auto) 37.1 L Lymph % (Auto) 50.1 H [place] % (Auto) 7.5 Eos % (Auto) 3.9 Baso % (Auto) 1.0 Absolute Neuts (auto) 4.1 Absolute Lymphs (auto) 5.57 H Nucleated RBC % 0 Differential Comment SCANNED Reactive Lymphocytes 2+ PT 13.3 INR 1.0 APTT 26.0 D-Dimer Quant (PE/DVT) 0.33 Sodium 144 Potassium 3.8 Chloride 107 H Carbon Dioxide 25.5 Anion Gap 11 BUN 18 Creatinine 0.85 Estim Creat Clear Calc 129.98 Est GFR (MDRD) Non-Af 105 BUN/Creatinine Ratio 21.2 H Glucose 138 H Calcium 9.0 Troponin T High Sens 6 Troponin T Hi Sens 2 Hr < 6 NT pro BNP II 80 Radiography Diagnostic Testing: Clinical Impression(s) from Imaging Studies Chest X-Ray 10/22/25 02:00 IMPRESSION: No evidence for acute abnormality. Reading Location: [place] [id number] Discharge Plan Triage Chief Complaint: Chest Pain ED Provider: Samson Reynoso Dx/Rx/DC Orders Clinical Impression: Indigestion, Chest pain of uncertain etiology, History of CAD (coronary artery disease) Instructions: ED Chest Pain, Uncertain Cause Prescriptions: No Action lisinopril 40 mg tablet 40 mg PO DAILY carvedilol 25 mg tablet 25 mg PO BID Rx Instructions: must administer with a meal/food nebivolol 10 mg tablet 10 mg PO DAILY aspirin [Adult Low Dose Aspirin] 81 mg tablet,delayed release (DR/EC) 81 mg PO DAILY amlodipine 10 mg tablet 10 mg PO DAILY Primary Care Provider: Roger Burroughs Referrals: Roger Burroughs MD [Primary Care Provider, Family Practice] Activity Restrictions/Additional Instructions: I would definitely follow-up with your primary care doctor and your continuous miner please return if you are having worsening symptoms Print Language: [place] Citizen Disposition Disposition: Home, Self Care
[2025-10-22 03:00] VITALS: BP 92/55; PULSE 76; RESP 18; O2SAT 94
[2025-10-22 04:00] VITALS: BP 108/75; PULSE 70; RESP 16; O2SAT 98
[2025-10-22 04:16] LABS: Troponin T High Sens 2 HR < 6 ng/L (<=22)
--- NOTE | 2025-10-22 04:18 | EKG12_ITS ---
Test Reason : REPEAT CP Blood Pressure : */* mmHG Vent. Rate : 66 BPM Atrial Rate : 66 BPM P-R Int : 184 ms QRS Dur : 94 ms QT Int : 430 ms P-R-T Axes : 48 41 33 degrees QTcB Int : 450 ms Normal sinus rhythm Normal ECG Confirmed by Gigi Raymond ([id number]), digital editor PREETHI LINARES ([id number]) on 10/28/2025 6:55:35 AM Referred By: RANDELL Confirmed By: Gigi Raymond
[2025-10-22] MEDS: Mag /Aluminum/Simeth WCH UDC 30 ML ORAL.SUSP PO (04:27)
[2025-10-22] MEDS: Lidocaine 2% Viscous15 ML UDC 15 ML PO (04:27)
[2025-10-22 04:30] VITALS: BP 123/92; PULSE 71; RESP 18; TEMP 36.6; O2SAT 98
== END 2025-10-22 04:37 | disposition home or self-care (01) ==
PROVIDERS: Emergency Provider Specialist/Technologist Athletic Trainer; PCP Family Medicine; Visit Provider Specialist/Technologist Athletic Trainer
DX: R07.9 Chest pain, unspecified (principal); I10 Essential (primary) hypertension; K30 Functional dyspepsia; Z95.828 Presence of other vascular implants and grafts; Z86.73 Personal history of transient ischemic attack (TIA), and cerebral infarction without residual deficits; Z87.891 Personal history of nicotine dependence; Z79.01 Long term (current) use of anticoagulants
CPT/HCPCS: 71045; 80048; 83880; 84484; 85025; 85379; 85610; 85730; 93005; 96360; 96361; 99284; A4216